=== PATIENT | female | born 1940 | race Caucasian/White ===

== ENCOUNTER 2016-08-18 20:00 | Outpatient (CLI) | payer MEDICARE ==
[~2016-08-18 20:00] MED LIST: ACHD5005 PO; ALPR0.5T72 PO; ATEN50TA PO; CYCL10TA9 PO; OMEP20CA12 PO; PRD20T PO; TRIAM/HCTZ PO
== END 2016-08-19 06:45 | disposition home or self-care (01) ==
LOC: SLEEP 20:00
PROVIDERS: ATTEND Internal Medicine Critical Care Medicine
DX: G47.33 Obstructive sleep apnea (adult) (pediatric) (principal)
CPT/HCPCS: 95810

== ENCOUNTER 2016-09-19 09:20 | Outpatient (CLI) | payer MEDICARE ==
[~2016-09-19] VITALS: Ht 160 cm; Wt 104.3 kg
[2016-09-19] MEDS ORDERED: BUPIVACAINE 0.25% 30 ML (SENSORCAINE) VIAL ONE (09:28)
[2016-09-19] MEDS ORDERED: TRIAMCINOLONE ACET (KENALOG-40) 40 MG/ML 1 ML VIAL ONE (09:28)
[2016-09-19 09:35] VITALS: BP 147/69
[2016-09-19 10:13] VITALS: BP 150/107
--- NOTE | 2016-09-19 14:15 | Pain Medicine-Procedure ---
Procedure Pre-Op/Post-Op Diagnosis Diagnosis: disc disorder with radiculopathy, lumbar Indications for Operation Low back pain Attending Surgeon Radha Procedure Date of Service: Sep 19, 2016 Procedure: Lumbar Epidural Steroid Injection at the L4-L5 level under Fluoroscopic Guidance Procedure: Patient was identified in the holding area. After risks, benefits, and alternatives were discussed with the patient, informed consent was obtained. Patient was brought to the fluoroscopy suite and placed prone on the procedure room table. A time out was performed. Vital signs were monitored throughout the procedure. The patients low back was prepped and draped in the usual sterile fashion. The patients skin was anesthetized using 2% Lidocaine. A Tuohy needle was inserted and advanced to the L4-L5 epidural space under fluoroscopic guidance using the loss of resistance technique and intermittent projection of fluoroscopy. There was no paresthesia with needle placement. The needle position was confirmed in both the AP and lateral view. After negative aspiration 2ml of contrast was injected under live fluoroscopy which showed good spread of the contrast in the epidural space at the appropriate level, there was no intravascular or subarachnoid spread. Again, after negative aspiration for heme or CSF, 2 ml of 0.25% Bupivicaine, 2ml of preservative free normal saline, and 80mg of Kenalog was injected. The needle was removed and a sterile bandage was placed and the patient was transferred to the recovery area in stable condition. After a brief period of observation, patient was discharged to home with no new neurological deficits and no apparent complications. Complications None ROXANNE MCNAMARA MD Sep 19, 2016 2:15 pm
== END 2016-09-19 10:14 | disposition home or self-care (01) ==
LOC: CARD 09:20
PROVIDERS: ATTEND Pain Medicine Pain Medicine
DX: M51.16 Intervertebral disc disorders with radiculopathy, lumbar region (principal); M53.3 Sacrococcygeal disorders, not elsewhere classified; Z79.899 Other long term (current) drug therapy
CPT/HCPCS: 62323

== ENCOUNTER 2016-11-27 10:00 | Outpatient (RCR) | payer MEDICARE | END 2016-11-30 | disposition home or self-care (01) | LOC: PULM 10:00 | PROVIDERS: ATTEND Nurse Practitioner Family | DX: J98.4 Other disorders of lung (principal); R06.02 Shortness of breath; G47.34 Idiopathic sleep related nonobstructive alveolar hypoventilation; R53.83 Other fatigue | CPT/HCPCS: 99211 ==

== ENCOUNTER 2016-12-22 12:28 | Outpatient (CLI) | payer MEDICARE ==
[~2016-12-22] VITALS: Ht 162.6 cm; Wt 103.0 kg
[2016-12-22] MEDS ORDERED: TRIAMCINOLONE ACET (KENALOG-40) 40 MG/ML 1 ML VIAL ONE (12:52)
[2016-12-22] MEDS ORDERED: BUPIVACAINE 0.25% 30 ML (SENSORCAINE) VIAL ONE (12:52)
[2016-12-22 13:03] VITALS: BP 149/97
[2016-12-22 13:31] VITALS: BP 121/71
--- NOTE | 2016-12-22 16:03 | Pain Medicine-Procedure ---
Procedure Pre-Op/Post-Op Diagnosis Diagnosis: disc disorder with radiculopathy, lumbar Indications for Operation Low back pain Attending Surgeon Radha Procedure Date of Service: December 22, 2016 Procedure: Lumbar Epidural Steroid Injection at the L4-L5 level under Fluoroscopic Guidance Procedure: Patient was identified in the holding area. After risks, benefits, and alternatives were discussed with the patient, informed consent was obtained. Patient was brought to the fluoroscopy suite and placed prone on the procedure room table. A time out was performed. Vital signs were monitored throughout the procedure. The patients low back was prepped and draped in the usual sterile fashion. The patients skin was anesthetized using 2% Lidocaine. A Tuohy needle was inserted and advanced to the L4-L5 epidural space under fluoroscopic guidance using the loss of resistance technique and intermittent projection of fluoroscopy. There was no paresthesia with needle placement. The needle position was confirmed in both the AP and lateral view. After negative aspiration 2ml of contrast was injected under live fluoroscopy which showed good spread of the contrast in the epidural space at the appropriate level, there was no intravascular or subarachnoid spread. Again, after negative aspiration for heme or CSF, 2 ml of 0.25% Bupivicaine, 2ml of preservative free normal saline, and 80mg of Kenalog was injected. The needle was removed and a sterile bandage was placed and the patient was transferred to the recovery area in stable condition. After a brief period of observation, patient was discharged to home with no new neurological deficits and no apparent complications. Complications None ROXANNE MCNAMARA MD December 22, 2016 4:03 pm
== END 2016-12-22 13:33 ==
LOC: CARD 12:28
PROVIDERS: ATTEND Pain Medicine Pain Medicine
DX: M51.16 Intervertebral disc disorders with radiculopathy, lumbar region (principal)
CPT/HCPCS: 62323

== ENCOUNTER 2017-02-19 10:00 | Outpatient (RCR) | payer MEDICARE | END 2017-03-02 | disposition home or self-care (01) | LOC: PULM 10:00 | PROVIDERS: ATTEND Nurse Practitioner Family | DX: J98.4 Other disorders of lung (principal); R06.02 Shortness of breath; G47.34 Idiopathic sleep related nonobstructive alveolar hypoventilation; R53.83 Other fatigue ==

== ENCOUNTER → 2017-07-08 | Outpatient (CLI) | payer MEDICARE ==
--- NOTE | 2017-07-08 13:36 | Diagnostic Imaging Report ---
PROCEDURE: US left lower extremity venous. TECHNIQUE: Multiple Real-time grayscale images were obtained over the left lower extremity in various projections. Additional duplex Doppler and color Doppler images were also obtained. INDICATION: Left lower extremity edema. FINDINGS: The left common femoral vein demonstrates compressibility and color flow. There is flow seen in the profunda femoris. The superficial femoral vein demonstrates no flow or compressibility. There is a small vein demonstrating flow running adjacent to the superficial femoral vein which could be a collateral or a duplicated vein. The popliteal vein is patent. The visualized portions of the peroneal and posterior tibial veins appear patent. IMPRESSION: There is age indeterminate occlusive thrombosis in the left superficial femoral vein. The findings were called to the nurse practitioner taking care of the patient, Serina Link, by the eeg technologist who performed the exam at 1:30 PM. Dictated by: Dictated on workstation # [id number]
--- NOTE | 2017-07-08 13:44 | Diagnostic Imaging Report ---
Left lower extremity arterial duplex ultrasound. INDICATION: Left lower extremity intermittent swelling. FINDINGS: Grayscale images demonstrate no significant plaque in the femoropopliteal segments. Biphasic waveforms are demonstrated throughout. The velocities and color Doppler in the femoropopliteal segments, the posterior tibial and dorsalis pedis arteries are all within normal limits. IMPRESSION: Biphasic waveform is seen in the left lower extremity arteries with no ultrasound evidence of focal high-grade stenosis. Dictated by: Dictated on workstation # [id number]
== END ==
LOC: RAD 12:22
PROVIDERS: ATTEND Nurse Practitioner Family
DX: I82.412 Acute embolism and thrombosis of left femoral vein (principal); Z86.718 Personal history of other venous thrombosis and embolism
CPT/HCPCS: 93926

== ENCOUNTER → 2017-07-23 | Outpatient (CLI) | payer MEDICARE ==
--- NOTE | 2017-07-24 10:15 | Diagnostic Imaging Report ---
Bilateral screening mammogram 2D views with tomosynthesis The current study was also evaluated with a Computer Aided Detection (CAD) system. Indication: Screening. No current complaints stated on the questionnaire. COMPARISON: 07/21/2016. Findings: The breasts are composed of scattered from densities. Scattered benign-appearing calcifications are seen. Allowing for technique and positional differences, no suspicious change is seen. IMPRESSION: No significant change. ACR BI-RADS Category 2: Benign findings. Result letter will be mailed to the patient. Note: At least 10% of breast cancer is not imaged by mammography. Dictated by: Dictated on workstation # [id number]
== END ==
LOC: RAD 12:51
PROVIDERS: ATTEND Nurse Practitioner Family
DX: Z12.31 Encounter for screening mammogram for malignant neoplasm of breast (principal)
CPT/HCPCS: 77067

== ENCOUNTER 2017-09-07 13:21 | Outpatient (RCR) | payer MEDICARE ==
[2017-09-07 15:39] LABS: BASOPHILS % (AUTO) 0 % (0-10); EOSINOPHILS # (AUTO) 0.1 10^3/uL (0.0-0.3); EOSINOPHILS % (AUTO) 1 % (0-10); HEMATOCRIT 37 % (35-52); HEMOGLOBIN 13.1 G/DL (11.5-16.0); LYMPHOCYTES # (AUTO) 1.3 X 10^3 (1.0-4.0); LYMPHOCYTES % (AUTO) 21 % (12-44); MEAN CORPUSCULAR HEMOGLOBIN 32 PG (25-34); MEAN CORPUSCULAR HGB CONC 36 G/DL (32-36); MEAN CORPUSCULAR VOLUME 91 FL (80-99); MEAN PLATELET VOLUME 10.9 FL (7.4-10.4); MONOCYTES # (AUTO) 0.5 X 10^3 (0.0-1.0); MONOCYTES % (AUTO) 9 % (0-12); NEUTROPHILS # (AUTO) 4.1 X 10^3 (1.8-7.8); NEUTROPHILS % (AUTO) 69 % (42-75); PLATELET COUNT 205 10^3/uL (130-400); RED BLOOD COUNT 4.06 10^6/uL (4.35-5.85); RED CELL DISTRIBUTION WIDTH 13.3 % (10.0-14.5); WHITE BLOOD COUNT 5.9 10^3/uL (4.3-11.0)
[2017-09-07 16:04] LABS: ALBUMIN 3.7 GM/DL (3.2-4.5); BILIRUBIN,TOTAL 0.7 MG/DL (0.1-1.0); CALCIUM 9.7 MG/DL (8.5-10.1); CREATININE SERUM 1.04 MG/DL (0.60-1.30); POTASSIUM 3.3 MMOL/L (3.6-5.0); TOTAL PROTEIN 7.9 GM/DL (6.4-8.2)
== END 2017-12-06 | disposition home or self-care (01) ==
LOC: ONC 13:21
PROVIDERS: ATTEND Internal Medicine Hematology & Oncology
DX: I82.412 Acute embolism and thrombosis of left femoral vein (principal); Z86.718 Personal history of other venous thrombosis and embolism
CPT/HCPCS: 36415; 80053; 81240; 81241; 85025; 99214

== ENCOUNTER → 2017-10-12 | Outpatient (CLI) | payer MEDICARE ==
--- NOTE | 2017-10-12 17:21 | Diagnostic Imaging Report ---
INDICATION: Right-sided chest pain and cough. PA and lateral chest obtained at 4:46 p.m. FINDINGS: Heart is normal in size. Aorta is tortuous. There is mild central vascular prominence which appears stable compared with 02/19/15. There is no acute consolidation or pneumothorax or pleural fluid. IMPRESSION: Stable appearance compared with 02/19/15 with no acute abnormality. Dictated by: Dictated on workstation # [id number]
== END ==
LOC: RAD 16:04
PROVIDERS: ATTEND Family Medicine
DX: R05 Cough (principal); R07.89 Other chest pain; M54.9 Dorsalgia, unspecified; M25.519 Pain in unspecified shoulder
CPT/HCPCS: 71046

== ENCOUNTER 2017-12-09 10:46 | Outpatient (RCR) | payer MEDICARE | END 2018-03-09 | disposition home or self-care (01) | LOC: ONC 10:46 | PROVIDERS: ATTEND Internal Medicine Hematology & Oncology | DX: I82.412 Acute embolism and thrombosis of left femoral vein (principal); Z86.718 Personal history of other venous thrombosis and embolism | CPT/HCPCS: 99213 ==

== ENCOUNTER 2018-04-14 09:21 | Outpatient (RCR) | payer MEDICARE ==
[2018-03-31 11:05] LABS: BASOPHILS % (AUTO) 1 % (0-10); EOSINOPHILS # (AUTO) 0.1 10^3/uL (0.0-0.3); EOSINOPHILS % (AUTO) 2 % (0-10); HEMATOCRIT 38 % (35-52); HEMOGLOBIN 13.4 G/DL (11.5-16.0); LYMPHOCYTES # (AUTO) 1.1 X 10^3 (1.0-4.0); LYMPHOCYTES % (AUTO) 25 % (12-44); MEAN CORPUSCULAR HEMOGLOBIN 32 PG (25-34); MEAN CORPUSCULAR HGB CONC 35 G/DL (32-36); MEAN CORPUSCULAR VOLUME 91 FL (80-99); MEAN PLATELET VOLUME 11.5 FL (7.4-10.4); MONOCYTES # (AUTO) 0.3 X 10^3 (0.0-1.0); MONOCYTES % (AUTO) 7 % (0-12); NEUTROPHILS # (AUTO) 2.8 X 10^3 (1.8-7.8); NEUTROPHILS % (AUTO) 66 % (42-75); PLATELET COUNT 184 10^3/uL (130-400); RED BLOOD COUNT 4.23 10^6/uL (4.35-5.85); RED CELL DISTRIBUTION WIDTH 13.8 % (10.0-14.5); WHITE BLOOD COUNT 4.3 10^3/uL (4.3-11.0)
[2018-03-31 11:36] LABS: ALBUMIN 3.7 GM/DL (3.2-4.5); BILIRUBIN,TOTAL 0.9 MG/DL (0.1-1.0); CALCIUM 9.8 MG/DL (8.5-10.1); CREATININE SERUM 0.98 MG/DL (0.60-1.30); POTASSIUM 3.4 MMOL/L (3.6-5.0); TOTAL PROTEIN 7.8 GM/DL (6.4-8.2)
== END 2018-06-29 | disposition home or self-care (01) ==
LOC: ONC 09:21
PROVIDERS: ATTEND Internal Medicine Hematology & Oncology
DX: I82.412 Acute embolism and thrombosis of left femoral vein (principal); Z86.718 Personal history of other venous thrombosis and embolism
CPT/HCPCS: 36415; 80053; 85025; 85300; 85303; 85306; 85610; 85613; 85705; 85730; 86146; 86147; 99213

== ENCOUNTER → 2018-06-16 | Outpatient (CLI) | payer MEDICARE ==
[~2018-06-16] MED LIST changes: +RT-ALBUTEROL SULF 2.5 MG/3 ML PRE-MIX VIAL INH ONE
== END ==
LOC: RT 09:42
PROVIDERS: ATTEND Nurse Practitioner Family
DX: R09.02 Hypoxemia (principal); R06.02 Shortness of breath; J98.4 Other disorders of lung; G47.33 Obstructive sleep apnea (adult) (pediatric)
CPT/HCPCS: 94060; 94640; 94726; 94729

== ENCOUNTER → 2018-06-16 | Outpatient (CLI) | payer MEDICARE ==
[~2018-06-16] MED LIST changes: -RT-ALBUTEROL SULF 2.5 MG/3 ML PRE-MIX VIAL INH ONE
--- NOTE | 2018-06-16 13:29 | Diagnostic Imaging Report ---
INDICATION: Hypoxemia. PA and lateral chest. Heart size and pulmonary vascularity are normal. Lungs are clear. There are no effusions or pneumothoraces. IMPRESSION: Negative chest. Dictated by: Dictated on workstation # [id number]
== END ==
LOC: RAD 09:49
PROVIDERS: ATTEND Nurse Practitioner Family
DX: J98.4 Other disorders of lung (principal); G47.33 Obstructive sleep apnea (adult) (pediatric); G47.34 Idiopathic sleep related nonobstructive alveolar hypoventilation; R09.02 Hypoxemia
CPT/HCPCS: 71046

== ENCOUNTER → 2018-08-04 | Outpatient (CLI) | payer MEDICARE ==
--- NOTE | 2018-08-04 18:29 | Diagnostic Imaging Report ---
INDICATION: Screening. At this time there are no current complaints. EXAMINATION: Bilateral breast digital diagnostic mammogram with CAD. 3D tomographic images were obtained and reviewed. The current study was also evaluated with a Computer Aided Detection (CAD) system. COMPARISON: This study was compared to the prior exams of 07/23/2017, 07/21/2016 and 07/18/2015. FINDINGS: The breasts are predominantly fatty. When compared with the previous study, there does not appear to have been any significant change. There is no primary or secondary sign of malignancy noted. IMPRESSION: There is no evidence for malignancy. ACR BI-RADS Category 1: Negative. Result letter will be mailed to the patient. Note: At least 10% of breast cancer is not imaged by mammography. Dictated by: Dictated on workstation # [id number]
== END ==
LOC: RAD 10:07
PROVIDERS: ATTEND Nurse Practitioner Family
DX: Z12.31 Encounter for screening mammogram for malignant neoplasm of breast (principal)
CPT/HCPCS: 77067

== ENCOUNTER → 2019-01-14 | Outpatient (CLI) | payer MEDICARE ==
--- NOTE | 2019-01-14 15:49 | Diagnostic Imaging Report ---
INDICATION: Left-sided rib and back pain. COMPARISON: None. FINDINGS: Three views of the left ribs were obtained. There is no fracture, dislocation, or other acute bony abnormality identified. Visualized portions of the left lung are clear. The surrounding soft tissues appear unremarkable. No radiopaque foreign bodies are seen. IMPRESSION: No healing or displaced left-sided rib fractures. Dictated by: Dictated on workstation # [id number]
== END ==
LOC: RAD 13:32
PROVIDERS: ATTEND Nurse Practitioner Family
DX: R07.81 Pleurodynia (principal); M54.9 Dorsalgia, unspecified
CPT/HCPCS: 71100

== ENCOUNTER → 2019-06-15 | Outpatient (CLI) | payer MEDICARE ==
--- NOTE | 2019-06-15 16:07 | Diagnostic Imaging Report ---
PROCEDURE: MR imaging of the cervical spine without contrast. TECHNIQUE: Multiplanar, multisequence MR imaging of the cervical spine was performed without contrast. INDICATION: Neck pain with bilateral hand numbness. COMPARISON: No prior studies are available for comparison. FINDINGS: Curvature and alignment of the cervical spine is normal. Vertebral body marrow signal is normal. No geographic marrow lesion is seen. There is some generalized desiccation of the cervical discs, but no significant loss of height is identified. The cervical spinal cord demonstrates normal homogeneous signal intensity and normal morphology. C2-C3: Central canal and neural foramina are widely patent. C3-C4: Central canal and neural foramina are widely patent. There is a very small midline disc bulge present. C4-C5: Minimal endplate osteophytes are present, but no significant central canal or neural foraminal stenosis is identified. C5-C6: No significant central canal or neural foraminal stenosis is identified. C6-C7: No central canal or neural foraminal stenosis is identified. C7-T1: No central canal or neural foraminal stenosis is identified. IMPRESSION: Mild cervical spondylosis. No central canal or neural foraminal stenosis is detected. Dictated by: Dictated on workstation # [id number]
== END ==
LOC: RAD 14:09
PROVIDERS: ATTEND Family Medicine
DX: M47.812 Spondylosis without myelopathy or radiculopathy, cervical region (principal); R20.2 Paresthesia of skin
CPT/HCPCS: 72141

== ENCOUNTER → 2019-07-05 | Outpatient (CLI) | payer MEDICARE ==
[2019-07-05 10:01] LABS: ABSOLUTE RETIC # 40 10e9/L (24-90); BASOPHILS % (AUTO) 0 % (0-10); EOSINOPHILS # (AUTO) 0.1 10^3/uL (0.0-0.3); EOSINOPHILS % (AUTO) 2 % (0-10); HEMATOCRIT 34 % (35-52); HEMOGLOBIN 11.6 G/DL (11.5-16.0); LYMPHOCYTES # (AUTO) 0.6 X 10^3 (1.0-4.0); LYMPHOCYTES % (AUTO) 15 % (12-44); MEAN CORPUSCULAR HEMOGLOBIN 31 PG (25-34); MEAN CORPUSCULAR HGB CONC 35 G/DL (32-36); MEAN CORPUSCULAR VOLUME 91 FL (80-99); MEAN PLATELET VOLUME 10.3 FL (7.4-10.4); MONOCYTES # (AUTO) 0.3 X 10^3 (0.0-1.0); MONOCYTES % (AUTO) 9 % (0-12); NEUTROPHILS # (AUTO) 2.8 X 10^3 (1.8-7.8); NEUTROPHILS % (AUTO) 73 % (42-75); PLATELET COUNT 146 10^3/uL (130-400); RED CELL DISTRIBUTION WIDTH 13.4 % (10.0-14.5); RETICULOCYTE % 1.08 % (0.50-2.40); WHITE BLOOD COUNT 3.8 10^3/uL (4.3-11.0)
[2019-07-05 10:23] LABS: BUN/CREATININE RATIO 17; CARBON DIOXIDE 24 MMOL/L (21-32); CHLORIDE 99 MMOL/L (98-107); GFR ESTIMATED > 60; GLUCOSE 97 MG/DL (70-105); SODIUM 131 MMOL/L (135-145)
[2019-07-05 10:43] LABS: ANISOCYTOSIS SLIGHT; BAND NEUTROPHILS 2 %; BASOPHILS % (MANUAL) 1 %; EOSINOPHILS % (MANUAL) 3 %; LYMPHOCYTES % (MANUAL) 15 %; MONOCYTES % (MANUAL) 7 %; NEUTROPHILS % (MANUAL) 72 %
== END ==
LOC: LAB 09:41
PROVIDERS: ATTEND Family Medicine
DX: D64.9 Anemia, unspecified (principal); D72.819 Decreased white blood cell count, unspecified
CPT/HCPCS: 36415; 80048; 85007; 85027; 85045

== ENCOUNTER → 2019-08-09 | Outpatient (CLI) | payer MEDICARE ==
--- NOTE | 2019-08-09 13:42 | Diagnostic Imaging Report ---
INDICATION: Routine screening. COMPARISON: 08/04/2018 and 07/23/2017. TECHNIQUE: 2D and 3D bilateral screening mammography was performed with CAD. FINDINGS: Scattered fibroglandular densities are identified bilaterally. Benign parenchymal and vascular calcifications are identified bilaterally. No spiculated mass or malignant appearing microcalcifications are seen. The axillae are unremarkable. IMPRESSION: No mammographic features suspicious for malignancy are identified. ACR BI-RADS Category 2: Benign findings. Result letter will be mailed to the patient. Note: At least 10% of breast cancer is not imaged by mammography. Dictated by: Dictated on workstation # [id number]
== END ==
LOC: RAD 11:03
PROVIDERS: ATTEND Family Medicine
DX: Z12.31 Encounter for screening mammogram for malignant neoplasm of breast (principal)
CPT/HCPCS: 77067

== ENCOUNTER 2019-10-17 09:34 | Inpatient (IN) | payer MEDICARE ==
[~2019-10-17] VITALS: Ht 162.5 cm; Wt 94.6 kg
[2019-10-17] MEDS ORDERED: ACETAMINOPHEN 500 MG TAB (TYLENOL) PO PRN (09:45)
[2019-10-17] MEDS ORDERED: LACTULOSE SYRUP 10GM/15ML (ENULOSE) 30ML UDC PO PRN (09:45)
[2019-10-17] MEDS ORDERED: FLEET ENEMA ADULT 1 EA BTL PR PRN (09:45)
[2019-10-17] MEDS ORDERED: diphenhydrAMINE 25 MG TAB (BENADRYL) PO PRN (09:45)
[2019-10-17] MEDS ORDERED: ONDANSETRON 4 MG (ZOFRAN) ORAL DISSOLVE TAB PO PRN (09:45)
[2019-10-17] MEDS ORDERED: HYDROcodone/APAP 5 MG/325 MG (LORTAB) TAB PO PRN (09:45)
[2019-10-17] MEDS ORDERED: LOPERAMIDE 2 MG (IMODIUM) TABLET PO PRN (09:45)
[2019-10-17] MEDS ORDERED: guaiFENesin/CODEINE (ROBITUSSIN AC) 10ML UDC PO PRN (09:45)
[2019-10-17] MEDS ORDERED: BISACODYL 10 MG SUPP (DULCOLAX) PR PRN (09:45)
[2019-10-17] MEDS ORDERED: ALPRAZolam 0.25 MG (XANAX) TAB PO PRN (09:45)
[2019-10-17] MEDS ORDERED: IBUPROFEN TABLET 200 MG TAB PO PRN (09:45)
[2019-10-17] MEDS ORDERED: DOCUSATE SODIUM 100 MG (COLACE) CAP PO PRN (09:45)
[2019-10-17] MEDS ORDERED: CALCIUM CARBONATE 500 MG (TUMS) TAB.CHEW PO PRN (09:45)
[2019-10-17 10:35] VITALS: BP 114/66
--- NOTE | 2019-10-17 10:52 | PM&R Post Admission Assessment ---
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 She reports falling out of bed a few times these past 2 weeks. Patient does wear 3L/min of O2 at night and during exertion. Patient denies any pain. I reviewed h er home meds and will start all of them. She has a very flat affect so will try to increase mobility and motivation during her stay here in order to return home to live independently. Past Jaybewm-Imqwkm-Miyqec Hx Past Med/Social Hx: Reviewed Nursing Past Med/Soc Hx, Reviewed and Corrections made Patient Social History Marrital Status: single Employed/Student: retired Alcohol Use: Denies Use Smoking Status: Never a Smoker Recent Foreign Travel: No Contact w/other who traveled: No Recent Infectious Disease Expo: No Immunizations Up To Date Date of Pneumonia Vaccine: Apr 03, 2011 Date of Influenza Vaccine: Jun 18, 2014 Past Medical History Respiratory: Emphysema restrictive lung disease Cardiac: High Cholesterol, Hypertension Reproductive: No Sexually Transmitted Disease: No HIV/AIDS: No Genitourinary: Bladder Infection Gastrointestinal: Gastroesophageal Reflux, Hiatal Hernia Musculoskeletal: Arthritis Endocrine: Hypothyroidsim Loss of Vision: Denies Hearing Impairment: Hard of Hearing Psychosocial: Sleep Difficulties Adverse Reaction to Blood Galan: No PM&R Allergy/Meds/Data Review Allergies Coded Allergies: No Known Drug Allergies (Unverified , 12/22/12) Home Medications Scheduled Acetaminophen (Tylenol Extra Strength), 1,000 MG PO BID, (Reported) Atenolol (Atenolol), 25 MG PO DAILY, (Reported) Cholecalciferol (Vitamin D3) (Vitamin D3), 25 MCG PO DAILY, (Reported) Diclofenac Sodium (Diclofenac Sodium), 2 GM TD QID, (Reported) Duloxetine HCl (Duloxetine HCl), 20 MG PO DAILY, (Reported) Levothyroxine Sodium (Levothyroxine Sodium), 50 MCG PO DAILY, (Reported) Multivitamin (Multivitamins), 1 EACH PO DAILY, (Reported) Omeprazole (Omeprazole), 20 MG PO DAILY, (Reported) Triamterene/Hydrochlorothiazid (Triamterene-Hctz 37.5-25 mg Tb), 1 EA PO DAILY, (Reported) Scheduled PRN Alprazolam (Alprazolam), 0.5 MG PO HS PRN for SLEEP, (Reported) Discontinued Medications Alprazolam (Alprazolam), 1 EACH PO HS, (Reported) Discontinued Reason: Duplicate Order Atenolol (Tenormin 50 Mg), 1 EACH PO DAILY, (Reported) Discontinued Reason: No Longer Taking Cyclobenzaprine Hcl (Cyclobenzaprine Hcl), 1 EACH PO Q6H, (Reported) Discontinued Reason: Duplicate Order Omeprazole (Omeprazole), 1 CAP PO DAILY, (Reported) Discontinued Reason: No Longer Taking [Triam/Hctz], 37.5 MG PO DAILY, (Reported) Discontinued Reason: No Longer Taking Current Medications Current Medications Reviewed Review of Systems Constitutional: see HPI, malaise, weakness EENTM: no symptoms reported Respiratory: dyspnea on exertion Cardiovascular: no symptoms reported Gastrointestinal: no symptoms reported Genitourinary: no symptoms reported Musculoskeletal: back pain, joint pain Skin: no symptoms reported Psychiatric/Neurological: Anxiety, Depressed All Other Systems Reviewed Negative Unless Noted: Yes Physical Exam Physical Exam Vital Signs Vital Signs - First Documented 10/17/19 10:35 Temp 36.1 Pulse 70 Resp 18 B/P (MAP) 114/66 Pulse Ox 97 O2 Delivery Room Air Capillary Refill : Height, Weight, BMI Height: 5'4.00" Weight: 227lbs. 0.0oz. [id number]; 33.85 BMI Method:Stated General Appearance: No Apparent Distress, WD/WN, Chronically ill Eyes: Bilateral Eye Normal Inspection, Bilateral Eye PERRL HEENT: PERRL/EOMI, Normal ENT Inspection, Pharynx Normal Neck: Full Range of Motion, Normal Inspection, Non Tender, Supple, Carotid Bruit Respiratory: Chest Non Tender, Lungs Clear, Normal Breath Sounds, No Accessory Muscle Use, No Respiratory Distress Cardiovascular: Regular Rate, Rhythm, No Edema, No Gallop, No JVD, No Murmur, Normal Peripheral Pulses Gastrointestinal: Normal Bowel Sounds, No Organomegaly, No Pulsatile Mass, Non Tender, Soft Back: Normal Inspection, No CVA Tenderness, No Vertebral Tenderness Extremity: Normal Capillary Refill, Normal Inspection, Normal Range of Motion, Non Tender, No Calf Tenderness, No Pedal Edema Neurologic/Psychiatric: Alert, Oriented x3, No Motor/Sensory Deficits, 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 II- XII Norm as Tested, Abnormal Gait, Depressed Affect, Motor Weakness (generalized) Skin: Normal Color, Warm/Dry Lymphatic: No Adenopathy PM&R Medical Assessment & Plan REHAB/MEDICAL ASSESSMENT AND PLAN: REHAB IMPAIRMENT GROUP: Debility with cervical spine stenosis ETIOLOGIC DIAGNOSIS: Debility with cervical spine stenosis The comorbidities that impact the patients function and/or functional outcome by: lung disease O2 dependent, falls, lives alone, flat affect REHAB PLAN: The patient is being admitted to our comprehensive inpatient rehabilitation facility and can tolerate the intensity of service consisting of at least: 180 minutes of therapy a day, 5 out of 7 days a week Rehab treatment will consist of: PT OT will focus on building stamina and strength and fall risk prevention The patient/family has a good understanding of our discharge process and will benefit from an interdisciplinary inpatient rehabilitation program. The patient has potential to make improvement and is in need of at least two of the following multidisciplinary therapies including but not limited to physical, occupational, speech, and prosthetics and orthotics. Additionally the patient will need services from respiratory, nutritional services, wound care, p sychology, etc. (Customize this to each patient). Given the patients complex condition and risk of further medical complications, rehabilitation services cannot be safely or effectively provided at a lower level of care such as a long term facility. BARRIERS TO DISCHARGE: Lives alone ESTIMATED LOS: 7 days DISPOSITION: Home RELEVANT CHANGES SINCE PREADMISSION SCREENING: I have compared the patients medical and functional status at the time of the preadmission screening and there are: no changes PROGNOSIS: Good REHABILITATION GOALS: 1. PT OT will focus on building stamina and strength and fall risk prevention All the above goals were reviewed with the patient and he/she is in agreement. By signing this document, I acknowledge that I have personally performed a full physical examination on this patient within 24 hours of admission to this inpatient rehabilitation facility and have determined the patient to be able to tolerate the above course of treatment at an intensive level for a reasonable period of time. I will be completing a detailed individualized Plan of Care for this patient by day #4 of the patients stay based upon the Preadmission Screen, the Post-Admission Evaluation, and the therapy evaluations. Admission Dx/Comorbidities: (1) Debility ICD Codes: R53.81 - Other malaise (2) Fall ICD Codes: W19.XXXA - Unspecified fall, initial encounter (3) Restrictive lung disease ICD Codes: J98.4 - Other disorders of lung (4) Oxygen dependent ICD Codes: Z99.81 - Dependence on supplemental oxygen (5) Hypertension ICD Codes: I10 - Essential (primary) hypertension (6) Hypothyroidism ICD Codes: E03.9 - Hypothyroidism, unspecified (7) GERD (gastroesophageal reflux disease) ICD Codes: K21.9 - Gastro-esophageal reflux disease without esophagitis Assessment/Plan Assessment and Plan Assess & Plan/Chief Complaint Assessment: Debility Weakness HTN HLP Hypothyroidism Restrictive lung disease Oxygen dependency Depression Plan: IRF protocol Home meds Monitor for pain and falls [facility]ISE [facility] DO Oct 17, 2019 10:52
--- NOTE | 2019-10-17 11:36 | Occupational Therapy Eval ---
OT Evaluation-General/PLF Medical Diagnosis Admission Date Oct 17, 2019 at 10:09 Medical Diagnosis: Debility Onset Date: Oct 17, 2019 Therapy Diagnosis Therapy Diagnosis: Decreased ADL status Height/Weight Height (Feet): 5 Height (Inches): 4.00 Weight (Pounds): 227 Weight (Ounces): 0.0 Precautions Precautions/Isolations: Standard Precautions Weight Bear Status Weight Bearing Restriction: Weight Bearing/Tolerated Referral Physician: Val Palacio DO Referral Reason: Activity Tolerance, Self Care, Evaluation/Treatment, Strengthening/ROM Medical History Pertinent Medical History: Arthritis Current History Pt underwent CTS release ~6 weeks prior to admission. Pt's family states since R CTS surgery, pt has become increasingly weak, decreased mood and motivation, and utilizes BUE for stability for walking now (prior use quad cane). Pt admits to ARU with debility Reviewed History: Yes Social History Home: Single Level Current Living Status: Children (son) Entry Into Home: Ramp Steps Into Home: 0 Pt goes to daughter's home somewhat frequently: 5 stairs with one handrail ADL-Prior Level of Function SCALE: Activities may be completed with or without assistive devices. 7-Livcazlyro-mgrtipt completes the activity by him/herself with no assistance from a helper. 5-Set-up or Clean-up Assistance-helper sets up or cleans up; patient completes activity. Lerona assists only prior to or following the activity. 4-Supervision or Touching Assistance-helper provides verbal cues and/or touching/steadying and/or contact guard assistance as patient completes activity. Assistance may be provided throughout the activity or intermittently. 3-Partial/Moderate Assistance-helper does LESS THAN HALF the effort. Lerona lifts, holds or supports trunk or limbs, but provides less than half the effort. 2-Substantial/Maximal Assistance-helper does MORE THAN HALF the effort. Lerona lifts or holds trunk or limbs and provides more than half the effort. 4-Ynxqyowen-nchywz does ALL the effort. Patient does none of the effort to complete the activity. Or, the assistance of 2 or more helpers is required for the patient to complete the activity. If activity was not attempted, code reason: 7-Patient Refused. 9-Not Applicable-not attempted and the patient did not perform the activity before the current illness, exacerbation or injury. 10-Not Attempted due to Environmental Limitations-(lack of equipment, weather restraints, etc.). 88-Not Attempted due to Medical Conditions or Safety Concerns. ADL PLOF Comments Pt states she is able to complete all ADLs with IND, though daughter in law states pt requires assist at times for UB dressing/ safety within the home/ has been weaker. Self Care: Needed Some Help Functional Cognition: Independent DME/Equipment: Bath Chair, Shower, Tub/Shower DME/Equipment Comments shower with built in chair, no grab bars (will be placed by daughter as well as gbs near toilet), sit to stand recliner. 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 Pt assisted from 1st floor to ARU with w/c with PT/OT, pt agreeable to OT eval/ treat. Daughter and daughter in law accompany pt. Pt's vitals assessed by assistant director of nursing, pt denies pain in neck and L hand. Mental Status/Objective Patient Orientation: Person, Place, Situation Current Glasses/Contacts: Yes Hearing Aids: No Dentures/Partials: Yes Hand Dominance: Right Upper Extremity ROM WFL BUE Upper Extremity Coordination WFL BUE (though states L hand is "asleep") Upper Extremity Sensation bilateral hands: R hand CTS surgery 6 weeks prior (states some paresthesias/ weakness); L hand CTS per pt (states "numbness/ asleep") Upper Extremity Strength Decreased bilaterally (4-/5) ADL-Treatment Eating (QC): 6 Oral Hygiene (QC): 7 Shower/Bathe Self (QC): 7 Upper Body Dressing (QC): 7 Lower Body Dressing (QC): 7 On/Off Footwear (QC): 7 Toileting Hygiene (QC): 4 (SBA garrett hygiene) Other Treatments PT eval: [id number] OT eval: 8715-8264 (10) OT/ PT cotreat: 5311-5272 (45) Pt educated on OT role, ARU standards/ expectations, and visitor limitations. Pt sit to stand with use of 2WW for stabilization. Completes shoe doff/ donning with SBA (slip on). Pt bed mob with SBA. Pt completes urination/ bottom check with nursing with SBA for toilet transfer, SBA toilet hygiene. Pt's daughter states they will place gb by toilet and in shower at home. Pt prefers bathing, but has been utilizing shower chair in walk in shower. Pt and daughters express pt's debility since CTS release. Pt's daughters express decreased mood of pt; pt lives with son and per family son is managing depressed moods as potato chip processing supervisor caregiver. Pt's family and OT discuss rotation of caregivers, family states had been trying to give pt's son a break and will continue to work towards. Pt completes ambulation tasks with CGA. Pt returns to recliner, 02 checked at 99%. Pt completes standing/ balance/ UE exercises at 2WW level. Pt completes bicep curls, internal shoulder rotation, and shoulder flexion of R in stance and L in sit. Pt maintains over 98% 02 during this time. Pt left with PT for continuation of ambulation tasks. All needs met, call light in reach. OT individual tx: 3591-9339 (45): Pt seen in recliner chair, agrees to OT tx session. Pt sit to stand with SBA, ambulates to therapy gym with SBA. Pt completes 13 min arm bike exercise (low resistance, higher time) to increase UE endurance- able to maintain conversation throughout. Pt completes without rest break. Pt completes export clerk strength testing bilaterally: R avg 28.3 lbs; L avg 30.3 lbs. Pt educated on findings. Pt completes export clerk strength exercises with hand sponge, education of export clerk and pinch strengthening. Pt completes toileting in room with SUP- good safety awareness, washes hands and returns to recliner chair with call light in reach, all needs met. Education OT Patient Education: Correct positioning, Exercise program, Home exercise program, Modified ADL techniques, Purpose of tx/functional activities, Rehab process, Safety issues Teaching Recipient: Patient Teaching Methods: Demonstration, Discussion Response to Teaching: Verbalize Understanding, Return Demonstration OT Short Term Goals Short Term Goals Upper body dressin Lower body dressin OT Residential Goals Residential Goals Time Frame: Oct 31, 2019 Eating (QC): 6 Oral Hygiene (QC): 6 Toileting Hygiene (QC): 6 Shower/Bathe Self (QC): 6 Upper Body Dressing (QC): 6 Lower Body Dressing (QC): 6 On/Off Footwear (QC): 6 Additional Goals: 1-Demonstrate ADL Tasks, 2-Verbalize Understanding, 3- ImproveStrength/Danny 1=Demonstrate adherence to instructed precautions during ADL tasks. 2=Patient will verbalize/demonstrate understanding of assistive devices/modifications for ADL. 3=Patient will improve strength/tolerance for activity to enable patient to perform ADL's. OT Education/Plan Problem List/Assessment Assessment: Decreased Activ Tolerance, Decreased UE Strength, Dependent Transfers, Impaired Funct Balance, Impaired I ADL's, Impaired Self-Care Skills Discharge Recommendations Plan/Recommendations: Continue POC Therapy Discharge Recommendati: Intermittent Supervision, Scheduled Assistance, Home & Family, Post Acute OT Treatment Plan/Plan of Care Treatment,Training & Education: Yes Patient would benefit from OT for education, treatment and training to promote independence in ADL's, mobility, safety and/or upper extremity function for ADL's. Plan of Care: ADL Retraining, Caregiver Training, Concurrent Therapy, Func tional Mobility, Group Exercise/Act as Ind, UE Funct Exercise/Act Treatment Duration: Oct 31, 2019 Frequency: At least 5 of 7 days/Wk (IRF) Estimated Hrs Per Day: 1.5 hours per day Agreement: Yes Rehab Potential: Good Time/GCodes Start Time: 10:25 (1320) Stop Time: 11:20 (1405) Total Time Billed (hr/min): 100 (55+ 45) Billed Treatment Time PT eval: [id number] OT eval: 1692-8929 (10) OT/ PT cotreat: 5737-5874 (45) 1, EVM (10), ADL (20), EX 2 (25)= 55 OT individual tx: [id number] (45) 1, ADL (15), EX2(30)= 45 JOSE BEAUCHAMP OTR Oct 17, 2019 11:36
--- NOTE | 2019-10-17 11:39 | Physical Therapy Evaluation ---
PT Evaluation-General Medical Diagnosis Admission Date Oct 17, 2019 at 10:09 Medical Diagnosis: debility Onset Date: Oct 17, 2019 Therapy Diagnosis Therapy Diagnosis: abnormal gait Height/Weight Height (Feet): 5 Height (Inches): 4.00 Weight (Pounds): 227 Weight (Ounces): 0.0 Precautions Precautions/Isolations: Standard Precautions Referral Physician: Pia Reason for Referral: Evaluation/Treatment Medical History Pertinent Medical History: Arthritis, DM, GERD, HTN, Hypothroidism Additional Medical History O2 use at night Right Carpel tunnel release approx 6 months ago; left side pending. Cervical pain. Current History Pt admitted from home with reports of decreased ability to care for herself and increased need for assist at home; decreased functional mobility and impaired safety with gait. Family reports a gradual decline over the past 6 weeks, since hand surgery. Reviewed History: Yes Social History Home: Single Level Current Living Status: Other Family (her son lives with her. ) Entry Into Home: Ramp Pt does have to go up/down steps to enter her daughter's home. Prior Prior Level of Function SCALE: Activities may be completed with or without assistive devices. 9-Cxlmvsxalh-cwxhcky completes the activity by him/herself with no assistance from a helper. 5-Set-up or Clean-up Assistance-helper sets up or cleans up; patient completes activity. Crandall assists only prior to or following the activity. 4-Supervision or Touching Assistance-helper provides verbal cues and/or touching/steadying and/or contact guard assistance as patient completes activity. Assistance may be provided throughout the activity or intermittently. 3-Partial/Moderate Assistance-helper does LESS THAN HALF the effort. Crandall lifts, holds or supports trunk or limbs, but provides less than half the effort. 2-Substantial/Maximal Assistance-helper does MORE THAN HALF the effort. Crandall l ifts or holds trunk or limbs and provides more than half the effort. 1-Akskrxrox-kqyimb does ALL the effort. Patient does none of the effort to complete the activity. Or, the assistance of 2 or more helpers is required for the patient to complete the activity. If activity was not attempted, code reason: 7-Patient Refused. 9-Not Applicable-not attempted and the patient did not perform the activity before the current illness, exacerbation or injury. 10-Not Attempted due to Environmental Limitations-(lack of equipment, weather restraints, etc.). 88-Not Attempted due to Medical Conditions or Safety Concerns. Bed Mobility: 6 Transfers (B,C,W/C): 6 Gait: 6 Stairs: 5 Indoor Mobility (Ambulation): Independent Stairs: Needed Some Help Prior Devices Use: Walker (4WW), Other-see list below (cane) PT Evaluation-Current Subjective Pt agreeable to PT but reports, "I need to leave by Thursday." Denies pain at this time. Pain Numeric Pain Scale: 0-No Pain Location: No Pain Reported Objective Patient Orientation: Person, Place, Time, Situation ROM/Strength ROM Lower Extremities WFL Strength Lower Extremities B LE strength is grossly 4-/5 throughout; decreased functional activity t olerance Integumentary/Posture Integumentary Refer to nursing assessment. Bowel Incontinence: No Bladder Incontinence: Yes Posture slightly rounded shoulders but symmetrical. Neuromuscular (Tone, Coordination, Reflexes) Intact and without functional deficit. Sensory Vision: Functional Hearing: Impaired Hand Dominance: Right Sensation Right Lower Extremit: Intact Sensation Left Lower Extremity: Intact Transfers Roll Left to Right (QC): 4 Sit to Lying (QC): 4 Lying to Sitting/Side of Bed(Q: 4 Sit to Stand (QC): 4 (skilled cues for sequencing. ) Chair/Xwm-vs-Pcduo Xfer(QC): 4 Toilet Transfer: 4 Car Transfer (QC): 4 skilled cues for sequencing and safety. Gait Does the Patient Walk?: Yes Mode of Locomotion: Walk Anticipated Mode of Locomotion: Walk Walk 10 feet (QC): 4 Walk 50 ft with 2 Turns(QC): 3 Walk 150 ft (QC): 3 (min -CGA for safety) Walking 10ft/uneven surface-QC: 3 Gait Assistive Device: FWW Comments/Gait Description Decreased step length and foot clearance B; slow gait. Stairs 1 Step (curb) (QC): 3 4 Steps (QC): 88 12 Steps (QC): 88 Balance Sitting Static: Good Sitting Dynamic: Good Standing Static: Fair Standing Dynamic: Fair Picking up an Object (QC): 88 Treatment Functional transfer and gait training; skilled balance training in static and dynamic situations. Co treat with OT part of treatment; skill of 2 clinicians indicated due to need for cues for use and placement of UE as well as assist for balance and cues for safety in balance challenged situations. As Pt completed toileting activity, OT addressed clothing and pericare as PT addressed the transfer and balaance skills. Assessment/Needs Pt presents with an admission from home with reports of decreased ability to care for herself and manage home mobility. She presents with slight strength and balance deficits as well as impaired functional activity tolerance that impedes bed mobility, transfers and gait as well as increases risk for falls due to these defiits. She will benefit from skilled PT to address mobiltiy to allow her to return to a mod indep level of mobiltiy. Rehab Potential: Good PT Short Term Goals Short Term Goals Time Frame: Oct 22, 2019 Sit to lyin Lying to sitting on side of be: 5 Walk 150 feet: 5 PT Halfway Goals Halfway Goals PT Halfway Goals Time Frame: Oct 31, 2019 Roll Left & Right (QC): 6 Sit to Lying (QC): 6 Lying-Sitting on Side/Bed(QC): 6 Sit to Stand (QC): 6 Chair/Jao-ez-Mldot Xfer(QC): 6 Toilet Transfer (QC): 6 Car Transfer (QC): 6 Does the Patient Walk: Yes Walk 10 feet (QC): 6 Walk 50ft with 2 Turns (QC): 6 Walk 150 ft (QC): 6 Walking 10ft on Uneven Surface: 5 1 Step (curb) (QC): 6 4 Steps (QC): 5 12 Steps (QC): 9 Picking up an Object (QC): 4 Does the Pt use WC or Scooter?: No PT Plan Problem List Problem List: Activity Tolerance, Functional Strength, Safety, Balance, Gait, Transfer, Bed Mobility Treatment/Plan Treatment Plan: Continue Plan of Care Treatment Plan: Bed Mobility, Education, Functional Activity Danny, Functional Strength, Group Therapy, Gait, Safety, Therapeutic Exercise, Transfers Treatment Duration: Oct 31, 2019 Frequency: At least 5 of 7 days/Wk (IRF) Estimated Hrs Per Day: 1.5 hours per day Patient and/or Family Agrees t: Yes Safety Risks/Education Patient Education: Transfer Techniques, Safety Issues Teaching Recipient: Patient Teaching Methods: Demonstration, Discussion Response to Teaching: Reinforcement Needed Time/GCodes Time In: 1015 Time Out: 1025 (135-1120 co treat (45 min)[id number] individual treat.) Total Billed Treatment Time: 65 Total Billed Treatment visit x 2 EVM 10 FA 45 (co treat) GT 10 (individual treat) 65 minutes total YOUNG BERNSTEIN PT Oct 17, 2019 11:39
--- NOTE | 2019-10-17 12:21 | NUR ---
f pt name] admitted to room 233-1, with an admitting diagnosis of debility, on 10/17/19 from via wheelchair, accompanied by daughter.YONATHAN POWER introduced to surroundings, call light, bed controls, phone, TV, temperature control, lights, meal times, smoking policy, visitor policy, side rail policy, bathrooms and showers. Patient Rights given to patient in the handbook.YONATHAN POWER verbalizes understanding that [facility] is not responsible for the loss or damage to any personal effects or valuables that are kept in the patients posession during their hospitalization. The following Patient Care Plans were discussed with the pt and family: Discharge Planning. YONATHAN POWER verbalizes understanding of Interdisciplinary Patient Education. Patient and/or family were informed about the Rapid Response Team and its purpose.
[2019-10-17] MEDS ORDERED: TRIA1TAB3 PO (12:28)
[2019-10-17] MEDS ORDERED: ALPR0.5T7 PO (12:28)
[2019-10-17] MEDS ORDERED: DULO20CA19 PO (12:28)
[2019-10-17] MEDS ORDERED: LEVO50TA6 PO (12:28)
[2019-10-17] MEDS ORDERED: ATEN25TA PO (12:28)
[2019-10-17] MEDS ORDERED: ACET-2267 PO (12:28)
[2019-10-17] MEDS ORDERED: DICL100G31 TD (12:28)
[2019-10-17] MEDS ORDERED: OMEP20CA18 PO (12:28)
[2019-10-17] MEDS ORDERED: MULT1TAB69 PO (12:32)
[2019-10-17] MEDS ORDERED: CHOL10007 PO (12:32)
--- NOTE | 2019-10-17 12:33 | NUR ---
SPOKE WITH PT AND HER DAUGHTER (ALL THE HOME MEDS WERE THERE BUT THE DAUGHTERS WERE TAKING THEM HOME) AND WENT THRU THE EXT MED HISTORY TO COMPLETE THE MED REC. ALL MEDS WERE ON THE EXT MED HISTORY AND THERE WERE NO DISCREPANCIES ON HOW THE PT IS TAKING THEM OTC MEDS: [employer] TYLENOL VIT D
--- NOTE | 2019-10-17 13:34 | ST Cognitive Linguistic Eval ---
Speech Evaluation-General Medical Diagnosis Debility Onset Date: Oct 17, 2019 Therapy Diagnosis Therapy Diagnosis: Cognitive-communication Referral Referring Physician: Dr. Palacio Medical History Pertinent Medical History: Arthritis Reviewed History: Yes Social History Current Living Status: Children (son) Speech PLF-Current Status Prior Level of Function Patient lives with her son and was independent for much of her daily needs. Subjective Patient was pleasant and cooperative with the cognitive assessment. Language Eval: Auditory Comprehends Simple Yes/No Ques: Functional Indent/Objects Multiple Tong: Functional Ident/Pics in Multiple Tong: Functional Follows 1-Step Commands: Functional Follows Complex Directions: Functional Follows General Conversations: Functional Language Eval: Verbal Language Completes Spontaneous Greeting: Functional Produces Auto, Serial Info: Functional Imitates Simple Words/Phrases: Functional Word Finding: Functional Requests Basic Needs: Functional States Basic Personal Info: Functional Expresses Complex Ideas: Functional Objective Cognitive Domain Attention: WNL Memory: Mild Problem Solving: Functional Executive Functions: WNL Visuospatial Skills: WNL Composite Severity Rating: WNL Clock Drawing Severity Rating: WNL Objective Formal/Standardized Tests [facility] Mental Status ([facility]) Results 27/30, within normal range of function Oral Motor/Speech Production Within Normal Limits Impression The patient is a pleasant 79 year old female who was admitted to the ARU from her home due to debility. Patient has recently had Carpal Tunnel surgery and is just getting her feeling back per patient. The patient was given the UMS with a score of 27/30 obtained. The patient does not require further services from at this time. Speech Patient Assess Expression of Ideas/Wants: Expression (4) Understanding Verbal Content: Understands (4) Brief Interview-Mental Status: Yes Repetition of Three Words: Three (3) Temporal Orientation: Year: Correct (3) Temporal Orientation: Month: Accurate within 5 days(2) Temporal Orientation: Day: Correct (1) Recall : Wear to say "Sock": Yes, no cue required (2) Recall : Color: Yes, no cue required (2) Recall : Bed: Yes,after cueing (1) Memory/Recall Ability: Current season, That he or she is in a hsp/hsp unit Speech-Plan Patient/Family Goals Patient/Family Goals: The patient plans on returning to her home where she lives with her son. Treatment Plan Speech Therapy Treatment Plan: Discontinue ST Treatment Duration: Oct 17, 2019 Frequency: 1 time per week Estimated Hrs Per Day: .25 hour per day Rehab Potential: Good Barriers to Learning: None identified Pt/Family Agrees to Plan: Yes Safety Risks/Education Teaching Recipient: Patient Teaching Methods: Discussion Response to Teaching: Verbalize Understanding Education Topics Provided: Safety within her room and communication of wants/needs. Time Speech Therapy Time In: 13:00 Speech Therapy Time Out: 13:15 Total Billed Time: 15 Billed Treatment Time 1, AIDEE Clark Oct 17, 2019 13:34
--- NOTE | 2019-10-17 13:38 | Progress Note ---
ERIK LING,MED STUDENT 10/17/19 1338: Progress Note IRF Course Ms. Salinas is a 79yo female patient of Dr. Spears with a hx of HTN, hypothyroidism, restrictive lung disease, and spinal stenosis who was admitted to IRF due to decreased ability to care for herself and decreased mobility. She had a bilateral carpal tunnel release 6 weeks ago, and her family notes that since that time she has experienced pain that has limited the use of her hands and wrists, and has had a general decline in her strength. Her family also notes she has been more unsteady during this time, and they are worried about her living at home and caring for herself. Part of her unsteadiness is due to the pain limiting her use of the cane she normally uses for ambulation. She currently uses 3L of oxygen to sleep at night, and sees Dr. Quintero, pulmonology. She is currently taking a total of 2,000mg of Tylenol daily for pain, and she was recently started on Cymbalta on . Due to experiencing fatigue with activity, decreased strength, and unsteadiness, she would benefit from PT and OT to help with her functionality and ADL's. She has agreed to work with PT and OT, but states that she would like to leave by Thursday. She would benefit from 7-10 days of therapy focused on balance, activity tolerance, and strength. VAL WEST DO 10/17/19 1944: Supervisory-Addendum Brief Verification & Attestation Participated in pt care: history, MDM, physical Personally performed: exam, history, MDM, supervision of care Care discussed with: Medical Student Procedures: n/a Results interpretation: Verified all documentation Verification and Attestation of Medical Student E/M Service A medical student performed and documented this service in my presence. I reviewed and verified all information documented by the medical student and made modifications to such information, when appropriate. I personally performed the physical exam and medical decision making. Val West Oct 17, 2019,19:43 ERIK LING,MED STUDENT Oct 17, 2019 13:38 VAL WEST DO Oct 17, 2019 19:44
[2019-10-17] MEDS: ENOXAPARIN 40 MG/0.4 ML (LOVENOX) SYR SC SCH (13:45)
--- NOTE | 2019-10-17 15:40 | Physical Therapy Daily Note ---
PT Daily Note-Current Subjective Agrees to PT. No complaints Mental Status Patient Orientation: Person, Place, Time, Situation Transfers SCALE: Activities may be completed with or without assistive devices. 4-Hcekwphywn-muvygho completes the activity by him/herself with no assistance from a helper. 5-Set-up or Clean-up Assistance-helper sets up or cleans up; patient completes activity. [place] assists only prior to or following the activity. 4-Supervision or Touching Assistance-helper provides verbal cues and/or touching/steadying and/or contact guard assistance as patient completes activity. Assistance may be provided throughout the activity or intermittently. 3-Partial/Moderate Assistance-helper does LESS THAN HALF the effort. [place] lifts, holds or supports trunk or limbs, but provides less than half the effort. 2-Substantial/Maximal Assistance-helper does MORE THAN HALF the effort. [place] lifts or holds trunk or limbs and provides more than half the effort. 1-Qalwsijgv-eirzma does ALL the effort. Patient does none of the effort to complete the activity. Or, the assistance of 2 or more helpers is required for the patient to complete the activity. If activity was not attempted, code reason: 7-Patient Refused. 9-Not Applicable-not attempted and the patient did not perform the activity before the current illness, exacerbation or injury. 10-Not Attempted due to Environmental Limitations-(lack of equipment, weather restraints, etc.). 88-Not Attempted due to Medical Conditions or Safety Concerns. Sit to Stand (QC): 4 Chair/Lmr-ib-Zpmdw Xfer(QC): 4 intermittent cues for hand placement. Gait Training Walk 150 ft (QC): 4 Gait Assistive Device: FWW 150 ft x 3 with FWW with SBA; skilled cues for foot clearance and step length. Exercises NuStep Minutes: 12 (to increase LE strength and functional activity tolerance. ) Assessment Current Status: Good Progress Pt is compliant and tolerated her first day well. PT Short Term Goals Short Term Goals Time Frame: Oct 22, 2019 Sit to lyin Lying to sitting on side of be: 5 Walk 150 feet: 5 PT Custodial Goals Custodial Goals PT Custodial Goals Time Frame: Oct 31, 2019 Roll Left & Right (QC): 6 Sit to Lying (QC): 6 Lying-Sitting on Side/Bed(QC): 6 Sit to Stand (QC): 6 Chair/Rtc-pd-Lmjza Xfer(QC): 6 Toilet Transfer (QC): 6 Car Transfer (QC): 6 Does the Patient Walk: Yes Walk 10 feet (QC): 6 Walk 50ft with 2 Turns (QC): 6 Walk 150 ft (QC): 6 Walking 10ft on Uneven Surface: 5 1 Step (curb) (QC): 6 4 Steps (QC): 5 12 Steps (QC): 9 Picking up an Object (QC): 4 Does the Pt use WC or Scooter?: No PT Plan Problem List Problem List: Activity Tolerance, Functional Strength, Safety, Balance, Gait, Transfer, Bed Mobility Treatment/Plan Treatment Plan: Continue Plan of Care Treatment Plan: Bed Mobility, Education, Functional Activity Danny, Functional Strength, Group Therapy, Gait, Safety, Therapeutic Exercise, Transfers Treatment Duration: Oct 31, 2019 Frequency: At least 5 of 7 days/Wk (IRF) Estimated Hrs Per Day: 1.5 hours per day Patient and/or Family Agrees t: Yes Safety Risks/Education Patient Education: Safety Issues Teaching Recipient: Patient Teaching Methods: Discussion Response to Teaching: Reinforcement Needed Time/GCodes Time In: 1500 Time Out: 1524 Total Billed Treatment Time: 24 Total Billed Treatment visit EX 12 Gt 12 YOUNG BERNSTEIN PT Oct 17, 2019 15:40
[2019-10-17 17:00] VITALS: BP 126/87
[2019-10-17] MEDS ORDERED: ALPRAZolam 0.5 MG (XANAX) TAB PO PRN (20:30)
[2019-10-17] MEDS: DOCUSATE SODIUM 100 MG (COLACE) CAP PO SCH (21:10)
[2019-10-17] MEDS: SENNA W/DOCUSATE (SENOKOT S) TABLET PO SCH (21:11)
[2019-10-17] MEDS: polyethylene glycoL POWDER 17 GM (MIRALAX) PACK PO SCH (21:11)
[2019-10-17] MEDS: ACETAMINOPHEN 500 MG TAB (TYLENOL) PO SCH (21:18)
[2019-10-17] MEDS: DICLOFENAC 1% GEL 100 GM (VOLTAREN) TUBE TOP SCH (21:18)
[2019-10-18 06:00] VITALS: BP 132/84
[2019-10-18] MEDS: VITAMIN D3 25 MCG (1,000 UNITS) TABLET PO SCH (06:38)
[2019-10-18] MEDS: MULTIVIT W/MINERALS TAB (THERAGRAN M) PO SCH (06:38)
[2019-10-18] MEDS: LEVOTHYROXINE 50 MCG (LEVOTHROID) TAB PO SCH (06:38)
[2019-10-18 06:42] LABS: BASOPHILS % (AUTO) 0 % (0-10); EOSINOPHILS % (AUTO) 2 % (0-10); HEMATOCRIT 32 % (35-52); LYMPHOCYTES # (AUTO) 0.7 X 10^3 (1.0-4.0); LYMPHOCYTES % (AUTO) 34 % (12-44); MEAN CORPUSCULAR HEMOGLOBIN 31 PG (25-34); MEAN CORPUSCULAR HGB CONC 35 G/DL (32-36); MEAN CORPUSCULAR VOLUME 90 FL (80-99); MONOCYTES # (AUTO) 0.2 X 10^3 (0.0-1.0); MONOCYTES % (AUTO) 10 % (0-12); NEUTROPHILS # (AUTO) 1.1 X 10^3 (1.8-7.8); NEUTROPHILS % (AUTO) 53 % (42-75); PLATELET COUNT 104 10^3/uL (130-400); RED CELL DISTRIBUTION WIDTH 13.2 % (10.0-14.5)
[2019-10-18 07:06] LABS: BILIRUBIN,TOTAL 0.4 MG/DL (0.1-1.0); CALCIUM 8.6 MG/DL (8.5-10.1); CREATININE SERUM 0.97 MG/DL (0.60-1.30); POTASSIUM 4.6 MMOL/L (3.6-5.0); TOTAL PROTEIN 6.4 GM/DL (6.4-8.2)
[2019-10-18] MEDS ORDERED: TRIAMTERENE/HCTZ 75-50 (MAXZIDE,DYAZIDE) TABLET PO SCH (09:00)
--- NOTE | 2019-10-18 09:43 | PM&R Progress Note ---
Subjective HPI/CC On Admission Date Seen by Provider: Oct 18, 2019 Time Seen by Provider: 09:45 Subjective/Events-last exam Sodium level 124 so DC Dyazide and placed on fluid restriction of 800cc/day BM yesterday Patient feels better today I updated her on the low sodium level Labs reviewed from 2019 and it appears sodium level was 128 06/2019 and it has progressed since that time No pain is reported Checked meds and labs Conferred with RN Reviewed therapy notes Review of Systems General: Fatigue Neurological: Weakness, Incoordination Objective Exam Vital Signs Vital Signs Date Time Temp Pulse Resp B/P (MAP) Pulse Ox O2 Delivery O2 Flow Rate FiO2 10/18/19 16:25 36.2 62 14 101/65 (77) 96 Room Air 10/17/19 21:00 3.00 Capillary Refill : Less Than 3 Seconds General Appearance: No Apparent Distress, WD/WN, Chronically ill HEENT: PERRL/EOMI, Normal ENT Inspection, Pharynx Normal Neck: Full Range of Motion, Normal Inspection, Non Tender, Supple, Carotid Bruit Respiratory: Chest Non Tender, Lungs Clear, Normal Breath Sounds, No Accessory Muscle Use, No Respiratory Distress Cardiovascular: Regular Rate, Rhythm, No Edema, No Gallop, No JVD, No Murmur, Normal Peripheral Pulses Gastrointestinal: Normal Bowel Sounds, No Organomegaly, No Pulsatile Mass, Non Tender, Soft Back: Normal Inspection, No CVA Tenderness, No Vertebral Tenderness Extremity: Normal Capillary Refill, Normal Inspection, Normal Range of Motion, Non Tender, No Calf Tenderness, No Pedal Edema Neurologic/Psychiatric: Alert, Oriented x3, No Motor/Sensory Deficits, gatehouse attendant II- XII Norm as Tested, Abnormal Gait, Depressed Affect, Motor Weakness (generalized) Skin: Normal Color, Warm/Dry Lymphatic: No Adenopathy Results/Procedures Lab Laboratory Tests 10/18/19 05:35 Patient resulted labs reviewed. FIM Transfers Therapy Code Descriptions/Definitions Functional [place] Measure: 0=Not Assessed/NA 4=Minimal Assistance 1=Total Assistance 5=Supervision or Setup 2=Maximal Assistance 6=Modified [place] 3=Moderate Assistance 7=Complete IndependenceSCALE: Activities may be completed with or without assistive devices. 1-Mjgvhyfhcb-osdzowh completes the activity by him/herself with no assistance from a helper. 5-Set-up or Clean-up Assistance-helper sets up or cleans up; patient completes activity. [place] assists only prior to or following the activity. 4-Supervision or Touching Assistance-helper provides verbal cues and/or touching/steadying and/or contact guard assistance as patient completes activity. Assistance may be provided throughout the activity or intermittently. 3-Partial/Moderate Assistance-helper does LESS THAN HALF the effort. [place] lifts, holds or supports trunk or limbs, but provides less than half the effort. 2-Substantial/Maximal Assistance-helper does MORE THAN HALF the effort. [place] lifts or holds trunk or limbs and provides more than half the effort. 7-Wjwfjxfre-zzxhxq does ALL the effort. Patient does none of the effort to complete the activity. Or, the assistance of 2 or more helpers is required for the patient to complete the activity. If activity was not attempted, code reason: 7-Patient Refused. 9-Not Applicable-not attempted and the patient did not perform the activity before the current illness, exacerbation or injury. 10-Not Attempted due to Environmental Limitations-(lack of equipment, weather restraints, etc.). 88-Not Attempted due to Medical Conditions or Safety Concerns. Roll Left to Right (QC): 4 Sit to Lying (QC): 4 Sit to Stand (QC): 4 Chair/Hyd-jv-Mpuen Xfer(QC): 4 Car Transfer (QC): 4 Gait Training Does the Patient Walk?: Yes Walk 10 feet (QC): 4 Walk 50 ft with 2 Turns(QC): 3 Walk 150 ft (QC): 4 Walking 10ft/uneven surface-QC: 3 Gait Assistive Device: FWW Stair Training 1 Step (curb) (QC): 3 4 Steps (QC): 88 12 Steps (QC): 88 Balance Picking up an Object (QC): 88 ADL-Treatment Eating (QC): 6 Oral Hygiene (QC): 7 Shower/Bathe Self (QC): 7 Upper Body Dressing (QC): 7 Lower Body Dressing (QC): 7 On/Off Footwear (QC): 7 Toileting Hygiene (QC): 4 (SBA garrett hygiene) Assessment/Plan Assessment and Plan Assess & Plan/Chief Complaint Assessment: Debility Weakness HTN HLP Hypothyroidism Restrictive lung disease Oxygen dependency Depression Hyponatremia Plan: IRF protocol Home meds Monitor for pain and falls DC [place] Fluid restriction (1) Debility (2) Fall (3) Restrictive lung disease (4) Oxygen dependent (5) Hypertension (6) Hypothyroidism (7) GERD (gastroesophageal reflux disease) PARADISE WEST DO Oct 18, 2019 09:43
--- NOTE | 2019-10-18 09:43 | Individualized Plan of Care ---
Individualized Plan of Care Rehab Nursing IPOC Order Admission Date Oct 17, 2019 at 10:09 Current Orders Orders Admission Order(Inpt,Obs,Sdc) (10/17/19 09:43) Vital Signs: Per Unit Policy ( ,16,00 (10/17/19 09:43) Ross Bryant , (10/17/19 09:43) Sequential Compression Device Q4H (10/17/19 09:43) [employer] Driver-Inpt Rehab Con (10/17/19 09:43) Rehab Nursing Orders-Ipoc (10/17/19 09:43) Physical Therapy Rehab Orders (10/17/19 09:43) Occupational Therapy Rehab Ord (10/17/19 09:43) Speech Therapy Rehab Orders (10/17/19 09:43) Cbc With Automated Diff (10/18/19 06:00) Comprehensive Metabolic Panel (10/18/19 06:00) Intake & Output 06,14,22 (10/17/19 09:43) Precautions (Aru) (10/17/19 09:43) Weekly Weight WEEK (10/17/19 09:43) Rehab-Intensity Of Therapy (10/17/19 09:43) Initiate Admission Nursing Pro .admission (10/17/19 09:43) Acetaminophen Tablet (Tylenol Tablet) (10/17/19 09:45) Alprazolam Tablet (Xanax Tablet) (10/17/19 09:45) Calcium Carbonate Chew Tablet (Antacid C (10/17/19 09:45) Diphenhydramine Tablet (Benadryl Tablet) (10/17/19 09:45) Docusate Sodium Capsule (Colace Capsule) (10/17/19 21:00) Docusate Sodium Capsule (Colace Capsule) (10/17/19 09:45) Bisacodyl Suppository (Dulcolax Supposit (10/17/19 09:45) Lactulose Oral Solution (Enulose Oral So (10/17/19 09:45) Na Phos/Na Biphos Enema (Fleet Enema Harsh (10/17/19 09:45) Guaifenesin/Codeine Syrup (Robitussin Ac (10/17/19 09:45) Hydrocodone/Apap 5/325 Tablet (Lortab 5 (10/17/19 09:45) Ibuprofen Tablet (Motrin Tablet) (10/17/19 09:45) Loperamide Tablet (Imodium Tablet) (10/17/19 09:45) Enoxaparin Injection (Lovenox Injection) (10/17/19 09:45) Melatonin Tablet (Melatonin Tablet) (10/17/19 09:45) Polyethylene Glycol Powder Pkt (Miralax (10/17/19 21:00) Ondansetron Oral Dissolve Tab (Zofran (10/17/19 09:45) Senna S Tablet (Senokot S Tablet) (10/17/19 21:00) Tramadol Tablet (Ultram Tablet) (10/17/19 09:45) Initiate Admission Nursing Pro .admission (10/17/19 09:43) Ambulate 08,12,20 (10/17/19 12:19) Sequential Compression Device Q4H (10/17/19 12:19) Dvt/Vte Risk - Notifiy Physici Q4H (10/17/19 12:19) Patient Visit (10/17/19 ) Speech Sound Lang Comp (10/17/19 ) Patient Visit (10/17/19 ) Pt Eval Moderate Complexity (10/17/19 ) Functional Activities, Ea 15 (10/17/19 ) Gait Training, Ea 15 Min (10/17/19 ) Exercise Therap, Ea 15 Min (10/17/19 ) Acetaminophen Tablet (Tylenol Tablet) (10/17/19 21:00) Alprazolam Tablet (Xanax Tablet) (10/17/19 20:30) Atenolol Tablet (Tenormin Tablet) (10/18/19 09:00) Diclofenac 1% Gel (Voltaren 1% Gel) (10/17/19 21:00) Duloxetine Capsule (Cymbalta Capsule) (10/18/19 09:00) Levothyroxine Tablet (Synthroid Tablet) (10/18/19 06:30) Therapeutic Multivitamin Tab (Vitamins, (10/18/19 07:00) Cholecalciferol Capsule/Tablet (Vitamin (10/18/19 07:00) Pantoprazole Tablet (Protonix Tablet) (10/18/19 09:00) General/Regular (10/18/19 Lunch) Nursing Communication (Order) (10/18/19 07:43) Patient Visit (10/18/19 ) Exercise Therap, Ea 15 Min (10/18/19 ) Ex Neuromuscular, Ea 15 Min (10/18/19 ) Gait Training, Ea 15 Min (10/18/19 ) Rehab Nursing Orders: Ongoing Assess. of Cognitive Status, Ongoing Assess. of Function Status, Bladder Management, Bladder Scan, Bladder Training, Bowel Management, Bowel Training, Disease Management & Educaiton, DVT Prophylaxis, Fall Prevention, Fluid/Electrolyte/Nutrition Mgmt, Medication Management & Education, Nutrition Management, Pain Management, Patient/Family Support, Safety Management Intensity of Therapy to be met Patient to be seen: Min.3h per day/5 of 7d PT IPOC Problem List: Activity Tolerance, Functional Strength, Safety, Balance, Gait, Transfer, Bed Mobility Treatment Plan: Continue Plan of Care Bed Mobility, Education, Functional Activity Danny, Functional Strength, Group Therapy, Gait, Safety, Therapeutic Exercise, Transfers Treatment Duration: Oct 31, 2019 Frequency: At least 5 of 7 days/Wk (IRF) Estimated Hrs Per Day: 1.5 hours per day OT IPOC Problems: Decreased Activ Tolerance, Decreased UE Strength, Dependent Transfers, Impaired Funct Balance, Impaired I ADL's, Impaired Self-Care Skills OT Treatment, Training and Edu: Yes Plan of Care: ADL Retraining, Caregiver Training, Concurrent Therapy, Functional Mobility, Group Exercise/Act as Ind, UE Funct Exercise/Act Treatment Duration: Oct 31, 2019 Frequency: At least 5 of 7 days/Wk (IRF) Estimated Hrs Per Day: 1.[address] IPOC Speech Therapy Treatment Plan: Discontinue ST Treatment Duration: Oct 17, 2019 Frequency: 1 time per week Estimated Hrs Per Day: .25 hour per day [employer] Driver/Case Mgmt [employer] Driver/Case Managemen: Discharge Planning Dietitian/Debate Director Dietitian/Debate Director to monitor nutritional status and make changes and/or recommendations as needed and work with speech pathology on dietary upgrades as the occur. Physician IPOC Medical Issues being managed closely and that require the 24 hour availability of a physician: New dx of hyponatremia with falls and overall weakness will require close monitoring of labs in order to assure sodium level returns to safe level Medical Issues: Bowel/Bladder Function, DVT Prophylaxis, Falls Precautions, Fluid/Electrolyte/Nutrition Balance, Infection Protection, Pain Management Brief Synthesis of Preadmission Screen, Post-Admission Evaluation, and Therapy Evaluations: PT OT will focus on regaining independence and ambulatory skills and build stamina Medical Prognosis: Good Anticipated Length of Stay: 7 days PARADISE WEST DO Oct 18, 2019 09:43
[2019-10-18] MEDS: SENNA W/DOCUSATE (SENOKOT S) TABLET PO SCH ×2 (09:57→21:00)
[2019-10-18] MEDS: polyethylene glycoL POWDER 17 GM (MIRALAX) PACK PO SCH ×2 (09:57→21:00)
[2019-10-18] MEDS: PANTOPRAZOLE 20 MG TABLET (PROTONIX) PO SCH (09:58)
[2019-10-18] MEDS: DOCUSATE SODIUM 100 MG (COLACE) CAP PO SCH ×2 (09:58→21:00)
[2019-10-18] MEDS: ATENOLOL 25 MG (TENORMIN) TAB PO SCH (09:58)
[2019-10-18] MEDS: ACETAMINOPHEN 500 MG TAB (TYLENOL) PO SCH ×2 (09:58→20:27)
--- NOTE | 2019-10-18 10:04 | Physical Therapy Daily Note ---
PT Daily Note-Current Subjective Agrees to PT. Reports she did not sleep well last night. Mental Status Patient Orientation: Person, Place, Time, Situation Transfers SCALE: Activities may be completed with or without assistive devices. 8-Axgurvxuns-tfagzru completes the activity by him/herself with no assistance from a helper. 5-Set-up or Clean-up Assistance-helper sets up or cleans up; patient completes activity. [place] assists only prior to or following the activity. 4-Supervision or Touching Assistance-helper provides verbal cues and/or touching/steadying and/or contact guard assistance as patient completes activity. Assistance may be provided throughout the activity or intermittently. 3-Partial/Moderate Assistance-helper does LESS THAN HALF the effort. [place] lifts, holds or supports trunk or limbs, but provides less than half the effort. 2-Substantial/Maximal Assistance-helper does MORE THAN HALF the effort. [place] lifts or holds trunk or limbs and provides more than half the effort. 5-Pdfbeowix-prbujd does ALL the effort. Patient does none of the effort to complete the activity. Or, the assistance of 2 or more helpers is required for the patient to complete the activity. If activity was not attempted, code reason: 7-Patient Refused. 9-Not Applicable-not attempted and the patient did not perform the activity before the current illness, exacerbation or injury. 10-Not Attempted due to Environmental Limitations-(lack of equipment, weather restraints, etc.). 88-Not Attempted due to Medical Conditions or Safety Concerns. Lying to Sitting/Side of Bed(Q: 4 Sit to Stand (QC): 4 Chair/Ghj-uo-Bbmhb Xfer(QC): 4 Toilet Transfer (QC): 4 SBA with functional transfers with intermittent cues for hand placement. Pt uses grab bars by the toilet. Pt is SBA with pericare and clothing management to toilet. SBA to stand at the sink to wash her hands. Gait Training Does the Patient Walk?: Yes Distance: 200 ft x 2; 50 ft x 2 Gait Assistive Device: FWW Functional gait training with cues for posture and sequencing; cues to increase step length and foot clearance. Stair Training Stair Training: Handrails/: 2 handrails 4 Steps (QC): 3 (CGA for safety and cues for sequencing. ) Stairs: Pattern: Step to Exercises Seated Therapy Exercises: Ankle pumps (15), Sit to stand (2x5), Long arc quads (15), Hip flexion (15), Hamstring Curls (15) Standing: Hip Abduction, Heel/toe raises, Marching, Mini squats Standing Reps: 12 LE ther ex for functional strength to progress gait distance and activity tolerance. Treatments Bed mobility, toileting, gait, ther ex and functional balance to complete funcitonal tasks. Assessment Current Status: Good Progress Follows cues well. Progressing with strength andmobiltiy. PT Short Term Goals Short Term Goals Time Frame: Oct 22, 2019 Sit to lyin Lying to sitting on side of be: 5 Walk 150 feet: 5 PT Plastic Bubble Packer Goals [facility] Goals PT Plastic Bubble Packer Goals Time Frame: Oct 31, 2019 Roll Left & Right (QC): 6 Sit to Lying (QC): 6 Lying-Sitting on Side/Bed(QC): 6 Sit to Stand (QC): 6 Chair/Osq-wb-Jgoul Xfer(QC): 6 Toilet Transfer (QC): 6 Car Transfer (QC): 6 Does the Patient Walk: Yes Walk 10 feet (QC): 6 Walk 50ft with 2 Turns (QC): 6 Walk 150 ft (QC): 6 Walking 10ft on Uneven Surface: 5 1 Step (curb) (QC): 6 4 Steps (QC): 5 12 Steps (QC): 9 Picking up an Object (QC): 4 Does the Pt use WC or Scooter?: No PT Plan Problem List Problem List: Activity Tolerance, Functional Strength, Safety, Balance, Gait, Transfer, Bed Mobility Treatment/Plan Treatment Plan: Continue Plan of Care Treatment Plan: Bed Mobility, Education, Functional Activity Danny, Functional Strength, Group Therapy, Gait, Safety, Therapeutic Exercise, Transfers Treatment Duration: Oct 31, 2019 Frequency: At least 5 of 7 days/Wk (IRF) Estimated Hrs Per Day: 1.5 hours per day Patient and/or Family Agrees t: Yes Safety Risks/Education Patient Education: Transfer Techniques Teaching Recipient: Patient Teaching Methods: Demonstration, Discussion Response to Teaching: Reinforcement Needed Time/GCodes Time In: 815 Time Out: 915 Total Billed Treatment Time: 60 Total Billed Treatment visit GT 15 NM 15 EX 30 YOUNG BERNSTEIN PT Oct 18, 2019 10:04
[2019-10-18] MEDS: ENOXAPARIN 40 MG/0.4 ML (LOVENOX) SYR SC SCH (10:23)
[2019-10-18] MEDS: DULoxetine 20 MG (CYMBALTA) CAP PO SCH (10:26)
[2019-10-18] MEDS: DICLOFENAC 1% GEL 100 GM (VOLTAREN) TUBE TOP SCH ×4 (10:37→20:27)
--- NOTE | 2019-10-18 10:45 | Occupational Ther Daily Note ---
OT Current Status-Daily Note Subjective Pt seated upright in recliner, agreeable to OT tx this AM with focus on ADLs. She did not verbalize any pain during tx. Mental Status/Objective Patient Orientation: Normal For Age ADL-Treatment Therapy Code Descriptions/Definitions Functional [place] Measure: 0=Not Assessed/NA 4=Minimal Assistance 1=Total Assistance 5=Supervision or Setup 2=Maximal Assistance 6=Modified [place] 3=Moderate Assistance 7=Complete IndependenceSCALE: Activities may be completed with or without assistive devices. 3-Chzpyibdbe-vjhlheg completes the activity by him/herself with no assistance from a helper. 5-Set-up or Clean-up Assistance-helper sets up or cleans up; patient completes activity. [place] assists only prior to or following the activity. 4-Supervision or Touching Assistance-helper provides verbal cues and/or touching/steadying and/or contact guard assistance as patient completes activity. Assistance may be provided throughout the activity or intermittently. 3-Partial/Moderate Assistance-helper does LESS THAN HALF the effort. [place] lift s, holds or supports trunk or limbs, but provides less than half the effort. 2-Substantial/Maximal Assistance-helper does MORE THAN HALF the effort. [place] lifts or holds trunk or limbs and provides more than half the effort. 9-Ehfbausto-iamvbr does ALL the effort. Patient does none of the effort to complete the activity. Or, the assistance of 2 or more helpers is required for the patient to complete the activity. If activity was not attempted, code reason: 7-Patient Refused. 9-Not Applicable-not attempted and the patient did not perform the activity before the current illness, exacerbation or injury. 10-Not Attempted due to Environmental Limitations-(lack of equipment, weather restraints, etc.). 88-Not Attempted due to Medical Conditions or Safety Concerns. Oral Hygiene (QC): 4 (SBA standing at sink with FWW) Shower/Bathe Self (QC): 4 (SBA during stand at GBs. Pt able to wash all parts.) Upper Body Dressing (QC): 4 (SBA Pt donned/doffed bra and machine puller shirt. ) Lower Body Dressing (QC): 4 (SBA, pt donned/doffed briefs and pants. She comple eric all parts with SBA during stand at FWW and GBs) On/Off Footwear: 4 (SBA during donning/doffing socks and slip on shoes) Toileting Hygiene (QC): 4 (SBA standing at FWW during clothing management) Toilet Transfer (QC): 4 (CGA during transfer on/off toilet) Other Treatment Pt sitting in recliner, performed functional mobility to sink with FWW, CGA. She completed oral hygiene, then transferred to toilet to complete toileting. She then transferred to MN where she completed showering and dressing (see notes above). Pt required increased time during shower, with min cues to take rest breaks as needed during task. Pt returned to recliner. Post OT session, pt seated upright in recliner, call light in reach and all needs met. Nursing present giving pt meds. Education OT Patient Education: Correct positioning, Energy conservation, Modified ADL techniques, Progress toward Goal/Update tx plan, Purpose of tx/functional activities Teaching Recipient: Patient Teaching Methods: Discussion Response to Teaching: Verbalize Understanding OT Short Term Goals Short Term Goals Upper body dressin Lower body dressin OT [place] Dehydrator Operator Goals [place] Dehydrator Operator Goals Time Frame: Oct 31, 2019 Eating (QC): 6 Oral Hygiene (QC): 6 Toileting Hygiene (QC): 6 Shower/Bathe Self (QC): 6 Upper Body Dressing (QC): 6 Lower Body Dressing (QC): 6 On/Off Footwear (QC): 6 Additional Goals: 1-Demonstrate ADL Tasks, 2-Verbalize Understanding, 3- ImproveStrength/Danny 1=Demonstrate adherence to instructed precautions during ADL tasks. 2=Patient will verbalize/demonstrate understanding of assistive devices/modifications for ADL. 3=Patient will improve strength/tolerance for activity to enable patient to perform ADL's. OT Education/Plan Problem List/Assessment Assessment: Decreased Activ Tolerance, Decreased UE Strength, Impaired I ADL's, Impaired Self-Care Skills Discharge Recommendations Plan/Recommendations: Continue POC Treatment Plan/Plan of Care Treatment,Training & Education: Yes Patient would benefit from OT for education, treatment and training to promote independence in ADL's, mobility, safety and/or upper extremity function for ADL's. Plan of Care: ADL Retraining, Caregiver Training, Concurrent Therapy, F unctional Mobility, Group Exercise/Act as Ind, UE Funct Exercise/Act Treatment Duration: Oct 31, 2019 Frequency: At least 5 of 7 days/Wk (IRF) Estimated Hrs Per Day: 1.5 hours per day Agreement: Yes Rehab Potential: Good Time/GCodes Start Time: 09:30 Stop Time: 10:30 Total Time Billed (hr/min): 60 Billed Treatment Time 1, ADL 4 KAYLIN YIP OT Oct 18, 2019 10:45
--- NOTE | 2019-10-18 11:45 | Physical Therapy Daily Note ---
PT Daily Note-Current Subjective Agreeable to PT. Mental Status Patient Orientation: Person, Place, Time, Situation Transfers SCALE: Activities may be completed with or without assistive devices. 1-Todiineyct-xscrpdk completes the activity by him/herself with no assistance from a helper. 5-Set-up or Clean-up Assistance-helper sets up or cleans up; patient completes activity. [place] assists only prior to or following the activity. 4-Supervision or Touching Assistance-helper provides verbal cues and/or touching/steadying and/or contact guard assistance as patient completes activity. Assistance may be provided throughout the activity or intermittently. 3-Partial/Moderate Assistance-helper does LESS THAN HALF the effort. [place] lifts, holds or supports trunk or limbs, but provides less than half the effort. 2-Substantial/Maximal Assistance-helper does MORE THAN HALF the effort. [place] lifts or holds trunk or limbs and provides more than half the effort. 7-Aaxphqkhg-bsqprk does ALL the effort. Patient does none of the effort to complete the activity. Or, the assistance of 2 or more helpers is required for the patient to complete the activity. If activity was not attempted, code reason: 7-Patient Refused. 9-Not Applicable-not attempted and the patient did not perform the activity before the current illness, exacerbation or injury. 10-Not Attempted due to Environmental Limitations-(lack of equipment, weather restraints, etc.). 88-Not Attempted due to Medical Conditions or Safety Concerns. Sit to Stand (QC): 4 (SBA with transfers.) Gait Training Pt ambulated 150 ft x 2 with FWW with SBA. Exercises NuStep Minutes: 15 (to promote LE strenght and functional act tolerance. ) Assessment Current Status: Good Progress Tolerated gait and exercises well. PT Short Term Goals Short Term Goals Time Frame: Oct 22, 2019 Sit to lyin Lying to sitting on side of be: 5 Walk 150 feet: 5 PT Air Drill Operator Goals Half-Way Goals PT Half-Way Goals Time Frame: Oct 31, 2019 Roll Left & Right (QC): 6 Sit to Lying (QC): 6 Lying-Sitting on Side/Bed(QC): 6 Sit to Stand (QC): 6 Chair/Nqr-jk-Szlnk Xfer(QC): 6 Toilet Transfer (QC): 6 Car Transfer (QC): 6 Does the Patient Walk: Yes Walk 10 feet (QC): 6 Walk 50ft with 2 Turns (QC): 6 Walk 150 ft (QC): 6 Walking 10ft on Uneven Surface: 5 1 Step (curb) (QC): 6 4 Steps (QC): 5 12 Steps (QC): 9 Picking up an Object (QC): 4 Does the Pt use WC or Scooter?: No PT Plan Problem List Problem List: Activity Tolerance, Functional Strength, Safety Treatment/Plan Treatment Plan: Continue Plan of Care Treatment Plan: Bed Mobility, Education, Functional Activity Danny, Functional Strength, Group Therapy, Gait, Safety, Therapeutic Exercise, Transfers Treatment Duration: Oct 31, 2019 Frequency: At least 5 of 7 days/Wk (IRF) Estimated Hrs Per Day: 1.5 hours per day Patient and/or Family Agrees t: Yes Time/GCodes Time In: 1115 Time Out: 1145 Total Billed Treatment Time: 30 Total Billed Treatment visit EX 15 GT 15 YOUNG BERNSTEIN PT Oct 18, 2019 11:45
--- NOTE | 2019-10-18 12:46 | NUR ---
CM/SS ADMISSION Patient admitted to ARU 10/17/19 from home for debility. She has history of carpel tunnel syndrome surgery 09/08/19 at [facility]. Patient and family describe that post op patient had a progressive decline; continued pain, limited use of hands/wrists, decreased strength, and unsteadiness. Other health challenges include, in part, O2 dependence, HTN, restrictive lung disease. Patient reports that she slid out of bed recently and hit her head on her closet. PCP made referral for ARU and patient did not agree to admit for a period of time. Once here, she has stated she only agrees to stay 5 days, to be determined. Patient resided at home along with her youngest son, Denton Salinas, prior to surgery and hospitalizations. She indicates she was IADL before surgery, that after her procedure she had pain in her hand and shoulder. She normally used a cane which became difficult because of the surgical sites and she resorted to the 4WW. DME: Has 4WW/seat, home O2 through [facility] (3L noc and w/exertion), cane, ramp, 2 shower chairs, grab bars in shower. Partner with therapy team regarding recommendations for additional assistive device. PCP: Dr. Maritza Spears, [place], [place] PHARMACY: [facility] INSURANCE: Medicare, CV Ingenuity Supplement CONTACTS: Patient was 10/03/18 when her spouse Tony Fenton" Brad passed. They have 4 children, 3 boys and one girl. Denton Salinas, Son, resides with patient [address] [place] [address] Blanka Craig, Daughter [place], [place] [phone] Melvina Salinas, Son, [place], [place] Etiennesergei Salinas, Son, [place], [place] CAREGIVER AVAILABILITY: Patient and son Denton reside together, science writer inquired about how much time she is alone regarding his employment. Patient indicates that since his father , he has remained at home with patient and does not leave her for any significant period of time. Denton apparently does not cook and patient has been doing little, they go through drive-thru's to get foods when in town on errands. Patient's stated goals are to return home and continue to recuperate there, her admission ELOS is 7 days. She understood the purpose and process of the weekly Patient Care Conference; however, she is adamant she intends to discharge 10/21/19, for home. Discussed bridging [facility] services short term, patient has limited interest at this time.
--- NOTE | 2019-10-18 13:24 | Occupational Ther Daily Note ---
OT Current Status-Daily Note Subjective Pt seated upright in recliner, agreeable to OT tx. She did not report any pain. Mental Status/Objective Patient Orientation: Normal For Age ADL-Treatment Therapy Code Descriptions/Definitions Functional [place] Measure: 0=Not Assessed/NA 4=Minimal Assistance 1=Total Assistance 5=Supervision or Setup 2=Maximal Assistance 6=Modified [place] 3=Moderate Assistance 7=Complete IndependenceSCALE: Activities may be completed with or without assistive devices. 5-Yfuurqakfh-dpetoxz completes the activity by him/herself with no assistance from a helper. 5-Set-up or Clean-up Assistance-helper sets up or cleans up; patient completes activity. [place] assists only prior to or following the activity. 4-Supervision or Touching Assistance-helper provides verbal cues and/or touching/steadying and/or contact guard assistance as patient completes activity. Assistance may be provided throughout the activity or intermittently. 3-Partial/Moderate Assistance-helper does LESS THAN HALF the effort. [place] lifts, holds or supports trunk or limbs, but provides less than half the effort. 2-Substantial/Maximal Assistance-helper does MORE THAN HALF the effort. [place] lifts or holds trunk or limbs and provides more than half the effort. 9-Uikrpcbuw-ymnpzk does ALL the effort. Patient does none of the effort to complete the activity. Or, the assistance of 2 or more helpers is required for the patient to complete the activity. If activity was not attempted, code reason: 7-Patient Refused. 9-Not Applicable-not attempted and the patient did not perform the activity before the current illness, exacerbation or injury. 10-Not Attempted due to Environmental Limitations-(lack of equipment, weather restraints, etc.). 88-Not Attempted due to Medical Conditions or Safety Concerns. Eating (QC): 6 (per pt report, she had no difficulty opening bag of chips at lunch and eating food.) Toileting Hygiene (QC): 4 (SBA) Toilet Transfer (QC): 4 (SBA) Other Treatment Pt seated in recliner, then went to restroom to complete toileting. Pt washed hands standing at sink, then put on her make up. Pt ambulated to therapy gym where she completed x10 mins on arm bike, min resistance in order to increase functional endurance and UE strengthening. Pt completed x5 mins backwards, then x5 mins forward on the arm bike. Pt returned to her room, and transferred to bed with SBA. Post OT session, pt laying down, call light in reach and all needs met. Education OT Patient Education: Correct positioning, Energy conservation, Exercise program, Modified ADL techniques, Progress toward Goal/Update tx plan, Purpose of tx/functional activities Teaching Recipient: Patient Teaching Methods: Discussion Response to Teaching: Verbalize Understanding OT Short Term Goals Short Term Goals Upper body dressin Lower body dressin OT Mcc Goals Mcc Goals Time Frame: Oct 31, 2019 Eating (QC): 6 Oral Hygiene (QC): 6 Toileting Hygiene (QC): 6 Shower/Bathe Self (QC): 6 Upper Body Dressing (QC): 6 Lower Body Dressing (QC): 6 On/Off Footwear (QC): 6 Additional Goals: 1-Demonstrate ADL Tasks, 2-Verbalize Understanding, 3-ImproveStrength/Danny 1=Demonstrate adherence to instructed precautions during ADL tasks. 2=Patient will verbalize/demonstrate understanding of assistive devices/modifications for ADL. 3=Patient will improve strength/tolerance for activity to enable patient to perform ADL's. OT Education/Plan Problem List/Assessment Assessment: Decreased Activ Tolerance, Decreased UE Strength, Impaired I ADL's, Impaired Self-Care Skills Discharge Recommendations Plan/Recommendations: Continue POC Treatment Plan/Plan of Care Patient would benefit from OT for education, treatment and training to promote independence in ADL's, mobility, safety and/or upper extremity function for ADL's. Plan of Care: ADL Retraining, Caregiver Training, Concurrent Therapy, Functional Mobility, Group Exercise/Act as Ind, UE Funct Exercise/Act Treatment Duration: Oct 31, 2019 Frequency: At least 5 of 7 days/Wk (IRF) Estimated Hrs Per Day: 1.5 hours per day Agreement: Yes Rehab Potential: Good Time/GCodes Start Time: 13:00 Stop Time: 13:30 Total Time Billed (hr/min): 30 Billed Treatment Time 1, ADL (20'), EX (10') KAYLIN YIP OT Oct 18, 2019 13:24
--- NOTE | 2019-10-18 14:34 | NUR ---
"RD ASSESSMENT PMHx: emphysema; restricted lung disease; hypercholesterolemia; HTN; GERD; hypothyroid PT INTERACTION: Pt was awake and pleasant during nutrition assessment. Pt states current appetite is poor, and has been this way for some time. Note avg PO intake 75% x1d, per chart review. Pt states following a regular diet at home and has no issues with chewing/swallowing food. Pt states no recent issues with n/v/c/d at this time. Note last BM was 10/16 and pt currently on bowel regimen of colace BID; senna BID; and miralax BID, per chart review. Pt states some recent wt gain, but unsure of amount/timeframe. Note unable to determine recent wt hx, per chart review. ABNORMAL NUTRITION-RELATED LAB VALUES LOW: Na 124; Cl 94; alb 3.0 HIGH: BUN 21; AST 57 Est. kcal needs: 7532-5409 kcal | 20-25 kcal/kg Est. Pro needs: 72-89 g Pro | 0.8-1.0 g Pro/kg PES STATEMENT: Given PO intake, no nutrition diagnosis at this time (NO-1.1) INTERVENTION: Continue with current diet order of Regular diet. Will continue to follow and reassess as pt needs, intake, and status change. MONITOR/EVALUATE: PO Intake; Plan of Care; Hydration Status; Weight Status; Lab Values Kelvin Rodarte, , RD, LD"
[2019-10-18 16:25] VITALS: BP 101/65
[2019-10-18] MEDS: MELATONIN 3 MG TABLET PO PRN (20:27)
[2019-10-19] MEDS: MULTIVIT W/MINERALS TAB (THERAGRAN M) PO SCH (05:26)
[2019-10-19] MEDS: VITAMIN D3 25 MCG (1,000 UNITS) TABLET PO SCH (05:26)
[2019-10-19] MEDS: LEVOTHYROXINE 50 MCG (LEVOTHROID) TAB PO SCH (05:26)
[2019-10-19 06:47] LABS: BUN/CREATININE RATIO 18; CALCIUM 8.4 MG/DL (8.5-10.1); CARBON DIOXIDE 20 MMOL/L (21-32); CHLORIDE 97 MMOL/L (98-107); GFR ESTIMATED > 60; GLUCOSE 91 MG/DL (70-105); POTASSIUM 4.3 MMOL/L (3.6-5.0)
[2019-10-19 06:57] VITALS: BP 101/63
[2019-10-19 07:03] LABS: SODIUM 125 MMOL/L (135-145)
--- NOTE | 2019-10-19 08:42 | Consultation ---
History of Present Illness History of Present Illness Patient Consulted On(iván/time) 10/19/19 08:42 Allergies and Home Medications Allergies Coded Allergies: No Known Drug Allergies (Unverified , 12/22/12) Home Medications Acetaminophen 500 Mg Tablet, 1,000 MG PO BID, (Reported) Alprazolam 0.5 Mg Tablet, 0.5 MG PO HS PRN for SLEEP, (Reported) Atenolol 25 Mg Tablet, 25 MG PO DAILY, (Reported) Cholecalciferol (Vitamin D3) 25 Mcg Capsule, 25 MCG PO DAILY, (Reported) Diclofenac Sodium 100 Gm Gel..gram., 2 GM TD QID, (Reported) APPLY TO LEFT WRIST, BOTH SHOULDERS AND UPPER NECK Duloxetine HCl 20 Mg Capsule.dr, 20 MG PO DAILY, (Reported) Levothyroxine Sodium 50 Mcg Tablet, 50 MCG PO DAILY, (Reported) Multivitamin 1 Each Tablet, 1 EACH PO DAILY, (Reported) Omeprazole 20 Mg Capsule.dr, 20 MG PO DAILY, (Reported) Triamterene/Hydrochlorothiazid 1 Each Tablet, 1 EA PO DAILY, (Reported) Past Lljcnbj-Idgsqi-Cmnscp Hx Past Med/Social Hx: Reviewed Nursing Past Med/Soc Hx, Reviewed and Corrections made Patient Social History Alcohol Use: Denies Use Number of Drinks Today: AA Recreational Drug Use: No Smoking Status: Never a Smoker Recent Foreign Travel: No Contact w/Someone Who Travel: No Recent Infectious Disease Expo: No Recent Hopitalizations: No Immunizations Up To Date Date of Pneumonia Vaccine: Apr 03, 2011 Date of Influenza Vaccine: May 18, 2019 Seasonal Allergies Seasonal Allergies: No Past Medical History Surgeries: Yes Respiratory: Yes (Restrictive lung disease) Currently Using CPAP: No Currently Using BIPAP: No Cardiac: Yes High Cholesterol, Hypertension Neurological: No Reproductive Disorders: No Sexually Transmitted Disease: No HIV/AIDS: No Genitourinary: No Bladder Infection Gastrointestinal: Yes Gastroesophageal Reflux, Hiatal Hernia Musculoskeletal: Yes Arthritis Endocrine: Yes Hypothyroidsim HEENT: No Loss of Vision: Denies Hearing Impairment: Hard of Hearing Cancer: No Psychosocial: Yes Sleep Difficulties, Depression Integumentary: No Blood Disorders: No Adverse Reaction/Blood Tranf: No Family Medical History Arthritis 19 FATHER 19 MOTHER Cancer of mouth G8 SISTER Cardiovascular disease 19 MOTHER G8 BROTHER G8 SISTER G8 SISTER G8 SISTER Hypertension 19 FATHER 19 MOTHER Myocardial infarction 19 MOTHER G8 BROTHER G8 SISTER G8 SISTER Review of Systems Review of Systems General: Fatigue Neurological: Weakness, Incoordination All Other Systems Reviewed All Other Systems Reviewed: Yes Physical Exam Vital Signs Vital Signs - First Documented 10/17/19 10/17/19 10:35 21:00 Temp 36.1 Pulse 70 Resp 18 B/P (MAP) 114/66 Pulse Ox 97 O2 Delivery Room Air O2 Flow Rate 3.00 Capillary Refill : Less Than 3 Seconds Height, Weight, BMI Height: 5'4.00" Weight: 227lbs. 0.0oz. [id number]; 33.85 BMI Method:Stated Assessment/Plan Assessment/Plan Problems: (1) Debility (2) Fall (3) Restrictive lung disease (4) Oxygen dependent (5) Hypertension (6) Hypothyroidism (7) GERD (gastroesophageal reflux disease) Clinical Quality Measures DVT/VTE Risk/Contraindication: Risk Factor Score Per Nursin RFS Level Per Nursing on Admit: 4+=Very High BALWINDER SAWYER MD Oct 19, 2019 08:42
[2019-10-19] MEDS: DICLOFENAC 1% GEL 100 GM (VOLTAREN) TUBE TOP SCH ×4 (09:24→21:49)
[2019-10-19] MEDS: SENNA W/DOCUSATE (SENOKOT S) TABLET PO SCH ×2 (09:26→21:48)
[2019-10-19] MEDS: DOCUSATE SODIUM 100 MG (COLACE) CAP PO SCH ×2 (09:26→21:48)
[2019-10-19] MEDS: DULoxetine 20 MG (CYMBALTA) CAP PO SCH (09:26)
[2019-10-19] MEDS: polyethylene glycoL POWDER 17 GM (MIRALAX) PACK PO SCH ×2 (09:27→21:48)
[2019-10-19] MEDS: PANTOPRAZOLE 20 MG TABLET (PROTONIX) PO SCH (09:27)
[2019-10-19] MEDS: ACETAMINOPHEN 500 MG TAB (TYLENOL) PO SCH ×2 (09:27→21:49)
[2019-10-19] MEDS: ENOXAPARIN 40 MG/0.4 ML (LOVENOX) SYR SC SCH (09:28)
[2019-10-19 09:29] VITALS: BP 85/59
--- NOTE | 2019-10-19 09:29 | NUR ---
table games shift manager RN reported that she noticed that pt wasn't following directions, or cues, very well last night, when helping her get ready for bed. Pt was walking out of bathroom herself w/o turning call lt on, walking on the bottoms of her pant legs. Pt forgetful, kept asking the same questions over, as to why can't I drink more water ? (Fluid Restriction d/t decreased sodium level). Dr. Spears here now, talking w pt, notified of this. Reports that this has been pt's baseline, that her last year, & that pt may have some owner's. States that pt has been flat, & vague for some time. Dr. Spears states that pt does appear improved since when she saw her in the office recently, appears more perky & brighter than that day. encouraged pt to eat.
--- NOTE | 2019-10-19 09:32 | Occupational Ther Daily Note ---
OT Current Status-Daily Note Subjective Pt laying in bed sleeping, easily awoken for therapy. She did not report any pain during tx. ADL-Treatment Therapy Code Descriptions/Definitions Functional [place] Measure: 0=Not Assessed/NA 4=Minimal Assistance 1=Total Assistance 5=Supervision or Setup 2=Maximal Assistance 6=Modified [place] 3=Moderate Assistance 7=Complete IndependenceSCALE: Activities may be completed with or without assistive devices. 0-Wbdlyoqwqy-iaqcagg completes the activity by him/herself with no assistance from a helper. 5-Set-up or Clean-up Assistance-helper sets up or cleans up; patient completes activity. [place] assists only prior to or following the activity. 4-Supervision or Touching Assistance-helper provides verbal cues and/or touching/steadying and/or contact guard assistance as patient completes activity. Assistance may be provided throughout the activity or intermittently. 3-Partial/Moderate Assistance-helper does LESS THAN HALF the effort. [place] lifts, holds or supports trunk or limbs, but provides less than half the effort. 2-Substantial/Maximal Assistance-helper does MORE THAN HALF the effort. [place] lifts or holds trunk or limbs and provides more than half the effort. 0-Smycsxbdd-amnsrp does ALL the effort. Patient does none of the effort to complete the activity. Or, the assistance of 2 or more helpers is required for the patient to complete the activity. If activity was not attempted, code reason: 7-Patient Refused. 9-Not Applicable-not attempted and the patient did not perform the activity before the current illness, exacerbation or injury. 10-Not Attempted due to Environmental Limitations-(lack of equipment, weather restraints, etc.). 88-Not Attempted due to Medical Conditions or Safety Concerns. Eating (QC): 6 (Pt ate breakfast without assistance.) Oral Hygiene (QC): 4 (SBA standing at sink) Upper Body Dressing (QC): 5 (set up ) Lower Body Dressing (QC): 4 (CGA during stand at GBs. Pt required cues for safety during task. Pt started to put her pants on, required cue to change her underwear 1st. Pt replied she thought she had already, although she had not. Pt then stood up to doff underwear, & started threading underwear while standing. OT instructed pt to sit down while threading her legs, pt replied "okay" but continued threading her legs into the underwear without sitting down as instructed.) On/Off Footwear: 4 (SBA seated) Toileting Hygiene (QC): 4 (SBA, pt instructed to not to stand without staff present, OT waited out side the door. Pt stood up prior to telling OT she was standing up. ) Toilet Transfer (QC): 3 (Min A. Pt complete clothing management and hygiene, when she was pulling pants up, she had toilet paper stuck to her skin requiring assistance to remove it prior to pulling pants up the rest of the way. SBA during stand at [facility].) Other Treatment Pt laying in bed, transferred supine to sit EOB with SBA. Pt then stood up without warning, no shoes/socks on and walker not in front of her. OT asked pt where she was going and pt did not answer. OT instructed pt to sit back down on the bed and put her shoes on prior to transfer. Pt sat and put shoes on with SBA. OT again asked pt where she was going to go when she stood up, pt reported the bathroom. OT educated pt on safety and importance of having walker set up and non-slip surface on her feet prior to transfers, pt verbalized understanding.OT placed gait belt and walker in front of the pt, then pt transferred to toilet with SBA. Pt completed toileting, then went to her recliner to eat breakfast. Nurse present stating pt needs chair/bed alarms. Pt reports she needed to use the restroom again, attempting to stand prior to walker being placed in front of her, OT educated pt again on safe transfers. Pt then went to the bathroom to complete toileting. She then completed dressing seated at MA, using GBs during stand (see notes above). She stood up from MA before walker was placed requiring assistance from OT for placement, OT educated pt again on safe transfers. Pt then stood at sink to wash her hands and face, brush her teeth, and put her make up on. Pt returned to her recliner. OT educated pt on safety during ADLs again, importance of having staff present when up in her room, and importance of using her call light. She verbalized understanding. Post OT session, pt seated in recliner with chair alarm on, call light in reach and all needs met. Education OT Patient Education: Correct positioning, Energy conservation, Modified ADL techniques, Progress toward Goal/Update tx plan, Purpose of tx/functional activities Teaching Recipient: Patient Teaching Methods: Discussion Response to Teaching: Verbalize Understanding, Reinforcement Needed OT Short Term Goals Short Term Goals Upper body dressin Lower body dressin OT Care Home Goals Commercial Agent Goals Time Frame: Oct 31, 2019 Eating (QC): 6 Oral Hygiene (QC): 6 Toileting Hygiene (QC): 6 Shower/Bathe Self (QC): 6 Upper Body Dressing (QC): 6 Lower Body Dressing (QC): 6 On/Off Footwear (QC): 6 Additional Goals: 1-Demonstrate ADL Tasks, 2-Verbalize Understanding, 3- ImproveStrength/Danny 1=Demonstrate adherence to instructed precautions during ADL tasks. 2=Patient will verbalize/demonstrate understanding of assistive devices/modifications for ADL. 3=Patient will improve strength/tolerance for activity to enable patient to perform ADL's. OT Education/Plan Problem List/Assessment Assessment: Decreased Activ Tolerance, Decreased Safety Aware, Decreased UE S trength, Impaired I ADL's, Impaired Self-Care Skills Discharge Recommendations Plan/Recommendations: Continue POC Treatment Plan/Plan of Care Treatment,Training & Education: Yes Patient would benefit from OT for education, treatment and training to promote independence in ADL's, mobility, safety and/or upper extremity function for ADL's. Plan of Care: ADL Retraining, Caregiver Training, Concurrent Therapy, Functional Mobility, Group Exercise/Act as Ind, UE Funct Exercise/Act Treatment Duration: Oct 31, 2019 Frequency: At least 5 of 7 days/Wk (IRF) Estimated Hrs Per Day: 1.5 hours per day Agreement: Yes Rehab Potential: Good Time/GCodes Start Time: 08:00 Stop Time: 09:00 Total Time Billed (hr/min): 60 Billed Treatment Time 1, ADL 4 KAYLIN YIP OT Oct 19, 2019 09:32
[2019-10-19] MEDS: ATENOLOL 25 MG (TENORMIN) TAB PO SCH (09:36)
[2019-10-19 10:25] VITALS: BP 108/61
--- NOTE | 2019-10-19 11:14 | PM&R Progress Note ---
Subjective HPI/CC On Admission Date Seen by Provider: Oct 19, 2019 Time Seen by Provider: 11:00 Subjective/Events-last exam Sodium level 125 today and DC Dyazide yesterday and placed on fluid restriction of 800cc/day BM regular Patient feels better today I updated her on the low sodium level and will recheck tomorrow and perhaps increase fluid intake Labs reviewed from 2019 and it appears sodium level was 128 06/2019 and it has progressed since that time No pain is reported Checked meds and labs Conferred with RN Reviewed therapy notes Review of Systems General: Fatigue Neurological: Weakness Objective Exam Vital Signs Vital Signs Date Time Temp Pulse Resp B/P (MAP) Pulse Ox O2 Delivery O2 Flow Rate FiO2 10/19/19 09:29 68 85/59 (68) 10/19/19 06:57 36.6 18 98 Nasal Cannula 3.00 Capillary Refill : Less Than 3 Seconds General Appearance: No Apparent Distress, WD/WN, Chronically ill HEENT: PERRL/EOMI, Normal ENT Inspection, Pharynx Normal Neck: Full Range of Motion, Normal Inspection, Non Tender, Supple, Carotid Bruit Respiratory: Chest Non Tender, Lungs Clear, Normal Breath Sounds, No Accessory Muscle Use, No Respiratory Distress Cardiovascular: Regular Rate, Rhythm, No Edema, No Gallop, No JVD, No Murmur, Normal Peripheral Pulses Gastrointestinal: Normal Bowel Sounds, No Organomegaly, No Pulsatile Mass, Non Tender, Soft Back: Normal Inspection, No CVA Tenderness, No Vertebral Tenderness Extremity: Normal Capillary Refill, Normal Inspection, Normal Range of Motion, Non Tender, No Calf Tenderness, No Pedal Edema Neurologic/Psychiatric: Alert, Oriented x3, No Motor/Sensory Deficits, human resource officer II- XII Norm as Tested, Abnormal Gait, Depressed Affect, Motor Weakness (ge neralized) Skin: Normal Color, Warm/Dry Lymphatic: No Adenopathy Results/Procedures Lab Laboratory Tests 10/19/19 05:45 Patient resulted labs reviewed. FIM Transfers Therapy Code Descriptions/Definitions Functional [place] Measure: 0=Not Assessed/NA 4=Minimal Assistance 1=Total Assistance 5=Supervision or Setup 2=Maximal Assistance 6=Modified [place] 3=Moderate Assistance 7=Complete IndependenceSCALE: Activities may be completed with or without assistive devices. 4-Icfmuvbjev-joajixk completes the activity by him/herself with no assistance from a helper. 5-Set-up or Clean-up Assistance-helper sets up or cleans up; patient completes activity. [place] assists only prior to or following the activity. 4-Supervision or Touching Assistance-helper provides verbal cues and/or to uching/steadying and/or contact guard assistance as patient completes activity. Assistance may be provided throughout the activity or intermittently. 3-Partial/Moderate Assistance-helper does LESS THAN HALF the effort. [place] lifts, holds or supports trunk or limbs, but provides less than half the effort. 2-Substantial/Maximal Assistance-helper does MORE THAN HALF the effort. [place] lifts or holds trunk or limbs and provides more than half the effort. 4-Cclevrjhr-yyzshv does ALL the effort. Patient does none of the effort to complete the activity. Or, the assistance of 2 or more helpers is required for the patient to complete the activity. If activity was not attempted, code reason: 7-Patient Refused. 9-Not Applicable-not attempted and the patient did not perform the activity before the current illness, exacerbation or injury. 10-Not Attempted due to Environmental Limitations-(lack of equipment, weather restraints, etc.). 88-Not Attempted due to Medical Conditions or Safety Concerns. Roll Left to Right (QC): 4 Sit to Lying (QC): 4 Sit to Stand (QC): 4 (SBA with transfers.) Chair/Uwi-rw-Nxxfq Xfer(QC): 4 Car Transfer (QC): 4 Gait Training Does the Patient Walk?: Yes Distance: 200 ft x 2; 50 ft x 2 Walk 10 feet (QC): 4 Walk 50 ft with 2 Turns(QC): 3 Walk 150 ft (QC): 4 Walking 10ft/uneven surface-QC: 3 Gait Assistive Device: FWW Wheelchair Training Does the Pt Use a Wheelchair?: No Stair Training Stair Training: Handrails/: 2 handrails 1 Step (curb) (QC): 3 4 Steps (QC): 3 (CGA for safety and cues for sequencing. ) 12 Steps (QC): 88 Stairs: Pattern: Step to Balance Picking up an Object (QC): 88 ADL-Treatment Eating (QC): 6 (Pt ate breakfast without assistance.) Oral Hygiene (QC): 4 (SBA standing at sink) Shower/Bathe Self (QC): 4 (SBA during stand at [facility]. Pt able to wash all parts.) Upper Body Dressing (QC): 5 (set up ) Lower Body Dressing (QC): 4 (CGA during stand at [facility]. Pt required cues for safety during task. Pt started to put her pants on, required cue to change her underwear 1st. Pt replied she thought she had already, although she had not. Pt then stood up to doff underwear, & started threading underwear while standing. OT instructed pt to sit down while threading her legs, pt replied "okay" but continued threading her legs into the underwear without sitting down as instructed.) On/Off Footwear (QC): 4 (SBA seated) Toileting Hygiene (QC): 4 (SBA, pt instructed to not to stand without staff present, OT waited out side the door. Pt stood up prior to telling OT she was standing up. ) Toilet Transfer (QC): 3 (Min A. Pt complete clothing management and hygiene, when she was pulling pants up, she had toilet paper stuck to her skin requiring assistance to remove it prior to pulling pants up the rest of the way. SBA during stand at [facility].) Assessment/Plan Assessment and Plan Assess & Plan/Chief Complaint Assessment: Debility Weakness HTN HLP Hypothyroidism Restrictive lung disease Oxygen dependency Depression Hyponatremia Plan: IRF protocol Home meds Monitor for pain and falls DC Dyazide Fluid restriction (1) Debility (2) Fall (3) Restrictive lung disease (4) Oxygen dependent (5) Hypertension (6) Hypothyroidism (7) GERD (gastroesophageal reflux disease) PARADISE WEST DO Oct 19, 2019 11:14
--- NOTE | 2019-10-19 12:08 | Physical Therapy Daily Note ---
PT Daily Note-Current Subjective Pt sitting in recliner answering phone call from family upon arrival. Pt agrees to PT but is preoccupied with whether she will receive MRI tomorrow as ordered by Dr Spears last week. Pt continues to need reminders of fluid restriction, continually asking for drink. Pain Location: No Pain Reported Mental Status Patient Orientation: Person, Confused, Place Transfers SCALE: Activities may be completed with or without assistive devices. 1-Pxupdsnrvm-nurxdir completes the activity by him/herself with no assistance from a helper. 5-Set-up or Clean-up Assistance-helper sets up or cleans up; patient completes activity. [place] assists only prior to or following the activity. 4-Supervision or Touching Assistance-helper provides verbal cues and/or touching/steadying and/or contact guard assistance as patient completes activity. Assistance may be provided throughout the activity or intermittently. 3-Partial/Moderate Assistance-helper does LESS THAN HALF the effort. [place] lifts, holds or supports trunk or limbs, but provides less than half the effort. 2-Substantial/Maximal Assistance-helper does MORE THAN HALF the effort. [place] lifts or holds trunk or limbs and provides more than half the effort. 6-Dmfavljzc-ieuglc does ALL the effort. Patient does none of the effort to complete the activity. Or, the assistance of 2 or more helpers is required for the patient to complete the activity. If activity was not attempted, code reason: 7-Patient Refused. 9-Not Applicable-not attempted and the patient did not perform the activity before the current illness, exacerbation or injury. 10-Not Attempted due to Environmental Limitations-(lack of equipment, weather restraints, etc.). 88-Not Attempted due to Medical Conditions or Safety Concerns. Sit to Stand (QC): 5 Toilet Transfer (QC): 5 Weight Bearing Right Lower Extremity: Right Full Weight Bearing Left Lower Extremity: Left Full Weight Bearing Gait Training Does the Patient Walk?: Yes Distance: 150' x2 Walk 10 feet (QC): 4 Walk 50 ft with 2 Turns(QC): 4 Walk 150 ft (QC): 4 Gait Persons Needed: 1 Gait Assistive Device: FWW Pt needs reminders to continue to keep FWW close and use when ambulating. Wheelchair Training Does the Pt Use a Wheelchair?: No Exercises NuStep Minutes: 10 NuStep Workload: 4 Treatments Pt transfers from recliner after phone call with family. Pt uses restroom. Pt then ambulates in hallway. Pt uses NuStep for 10m at WL 4. Pt returns to room to rest in recliner at end of Rx. Pt has all needs met, call light in hand. Assessment Current Status: Fair Progress Pt demonstrates more confusion during Rx today. Pt needs redirection to stay on task. Pt also needs VC for safety for using FWW appropriately. PT Short Term Goals Short Term Goals Time Frame: Oct 22, 2019 Sit to lyin Lying to sitting on side of be: 5 Walk 150 feet: 5 PT Wringer Operator Goals Wringer Operator Goals PT Wringer Operator Goals Time Frame: Oct 31, 2019 Roll Left & Right (QC): 6 Sit to Lying (QC): 6 Lying-Sitting on Side/Bed(QC): 6 Sit to Stand (QC): 6 Chair/Clr-yq-Rzquh Xfer(QC): 6 Toilet Transfer (QC): 6 Car Transfer (QC): 6 Does the Patient Walk: Yes Walk 10 feet (QC): 6 Walk 50ft with 2 Turns (QC): 6 Walk 150 ft (QC): 6 Walking 10ft on Uneven Surface: 5 1 Step (curb) (QC): 6 4 Steps (QC): 5 12 Steps (QC): 9 Picking up an Object (QC): 4 Does the Pt use WC or Scooter?: No PT Plan Problem List Problem List: Activity Tolerance, Functional Strength, Safety Treatment/Plan Treatment Plan: Continue Plan of Care Treatment Plan: Bed Mobility, Education, Functional Activity Danny, Functional Strength, Group Therapy, Gait, Safety, Therapeutic Exercise, Transfers Treatment Duration: Oct 31, 2019 Frequency: At least 5 of 7 days/Wk (IRF) Estimated Hrs Per Day: 1.5 hours per day Patient and/or Family Agrees t: Yes Safety Risks/Education Patient Education: Gait Training, Transfer Techniques, Correct Positioning, Safety Issues Teaching Recipient: Patient Teaching Methods: Discussion Response to Teaching: Reinforcement Needed Time/GCodes Time In: 1000 Time Out: 1100 Total Billed Treatment Time: 60 Total Billed Treatment 1, FA x2 (30m), GT (15m) & EX (15m) KAMI MONTEZ OPTOMETRIC TECHNICIAN Oct 19, 2019 12:08
--- NOTE | 2019-10-19 14:37 | Therapy Group Daily Note ---
Therapy Daily Group Note Patient Education Topic Other List Below (social distancing) Exercises LE Seated Exercise, UE Exercise Session Ratio (pt:therapist): 4:1 Goal of Session: Memory Strategies, Other (list) (social distancing) Goal Met for this Session: Yes Pt Benefit of Group: Contributions to Others, Increased Functional Strength, Improved Cognition, Recognition of Peers, Socialization Other/Notes Pt ambulated to [facility] for OT/PT group. Group consisted of introductions (name, place living, historical memory), socialization, UE/LE seated exercises and educational topic over social distancing. Pt introduced self appropriately and actively listened to peers. Pt able to lead one exercise and complete other exercises, 1 set 10 reps. Pt acknowledged understanding of educational topic by verbalizing own strategies and opinion. After therapy, pt lying in bed with call light/phone in reach. All needs met. Start Time: 13:00 Stop Time: 14:10 Total Billed Treatment Time: 70 Total Billed Treatment 1-GRP YOUNG CELAYA Oct 19, 2019 14:37
--- NOTE | 2019-10-19 16:05 | NUR ---
Pt's dgtr in law, Tanika called to floor earlier, & spoke w SLOOP CAPTAIN, Erica, asked if pt was still going to have the MRI of her brain that Dr. Spears had ordered for tomorrow at 3:00, Notified Dr. Palacio of this, she said it was fine w her, but, to check w Dr. Spears, Notified Dr. Spears, & she did state that she still wanted pt to have the MRI of brain, w & w/o contrast as previously ordered. Addendum: 10/19/19 at 1609 by CATALINA LONGORIA RN kerwin Vallecillo in MRI
[2019-10-19 18:00] VITALS: BP 117/79
[2019-10-19] MEDS: MELATONIN 3 MG TABLET PO PRN (21:48)
[2019-10-20 06:00] VITALS: BP 133/74
[2019-10-20 06:30] LABS: CALCIUM 8.3 MG/DL (8.5-10.1); CREATININE SERUM 0.91 MG/DL (0.60-1.30); POTASSIUM 4.2 MMOL/L (3.6-5.0)
[2019-10-20] MEDS: VITAMIN D3 25 MCG (1,000 UNITS) TABLET PO SCH (06:44)
[2019-10-20] MEDS: MULTIVIT W/MINERALS TAB (THERAGRAN M) PO SCH (06:44)
[2019-10-20] MEDS: LEVOTHYROXINE 50 MCG (LEVOTHROID) TAB PO SCH (06:44)
[2019-10-20 06:59] LABS: BASOPHILS % (AUTO) 0 % (0-10); EOSINOPHILS % (AUTO) 3 % (0-10); HEMATOCRIT 29 % (35-52); HEMOGLOBIN 10.3 G/DL (11.5-16.0); LYMPHOCYTES # (AUTO) 0.4 X 10^3 (1.0-4.0); LYMPHOCYTES % (AUTO) 26 % (12-44); MEAN CORPUSCULAR HEMOGLOBIN 32 PG (25-34); MEAN CORPUSCULAR HGB CONC 36 G/DL (32-36); MEAN CORPUSCULAR VOLUME 89 FL (80-99); MEAN PLATELET VOLUME 12.2 FL (7.4-10.4); MONOCYTES # (AUTO) 0.2 X 10^3 (0.0-1.0); MONOCYTES % (AUTO) 16 % (0-12); NEUTROPHILS # (AUTO) 0.9 X 10^3 (1.8-7.8); NEUTROPHILS % (AUTO) 56 % (42-75); PLATELET COUNT 96 10^3/uL (130-400); RED CELL DISTRIBUTION WIDTH 12.9 % (10.0-14.5); WHITE BLOOD COUNT 1.5 10^3/uL (4.3-11.0)
[2019-10-20 07:02] LABS: SMEAR SCAN COMMENT 0
[2019-10-20 08:01] LABS: BASOPHILS % (AUTO) 0 % (0-10); EOSINOPHILS % (AUTO) 3 % (0-10); HEMATOCRIT 29 % (35-52); HEMOGLOBIN 10.3 G/DL (11.5-16.0); LYMPHOCYTES # (AUTO) 0.4 X 10^3 (1.0-4.0); LYMPHOCYTES % (AUTO) 26 % (12-44); MEAN CORPUSCULAR HEMOGLOBIN 32 PG (25-34); MEAN CORPUSCULAR HGB CONC 36 G/DL (32-36); MEAN CORPUSCULAR VOLUME 89 FL (80-99); MEAN PLATELET VOLUME 12.2 FL (7.4-10.4); MONOCYTES # (AUTO) 0.2 X 10^3 (0.0-1.0); MONOCYTES % (AUTO) 16 % (0-12); NEUTROPHILS # (AUTO) 0.9 X 10^3 (1.8-7.8); NEUTROPHILS % (AUTO) 56 % (42-75); PLATELET COUNT 96 10^3/uL (130-400); RED CELL DISTRIBUTION WIDTH 12.9 % (10.0-14.5); WHITE BLOOD COUNT 1.5 10^3/uL (4.3-11.0)
[2019-10-20 08:04] LABS: ABSOLUTE RETIC # 29 10e9/L (24-90); RETICULOCYTE % 0.87 % (0.50-2.40)
[2019-10-20 08:13] LABS: ALBUMIN 2.8 GM/DL (3.2-4.5); BILIRUBIN,DIRECT 0.3 MG/DL (0.0-0.3); BILIRUBIN,INDIRECT 0.2 MG/DL; BILIRUBIN,TOTAL 0.5 MG/DL (0.1-1.0)
[2019-10-20] MEDS: ACETAMINOPHEN 500 MG TAB (TYLENOL) PO SCH ×2 (08:23→20:59)
[2019-10-20] MEDS: PANTOPRAZOLE 20 MG TABLET (PROTONIX) PO SCH (08:23)
[2019-10-20] MEDS: SODIUM CHLORIDE 1 GM TABLET PO SCH ×2 (08:23→20:59)
[2019-10-20] MEDS: DOCUSATE SODIUM 100 MG (COLACE) CAP PO SCH ×2 (08:24→20:58)
[2019-10-20] MEDS: DULoxetine 20 MG (CYMBALTA) CAP PO SCH (08:24)
[2019-10-20] MEDS: SENNA W/DOCUSATE (SENOKOT S) TABLET PO SCH ×2 (08:24→20:59)
[2019-10-20] MEDS: polyethylene glycoL POWDER 17 GM (MIRALAX) PACK PO SCH ×2 (08:24→20:58)
[2019-10-20] MEDS: DICLOFENAC 1% GEL 100 GM (VOLTAREN) TUBE TOP SCH ×4 (08:26→21:00)
[2019-10-20 08:58] LABS: ANISOCYTOSIS SLIGHT; ELLIPT/OVALOCYTES SLIGHT; EOSINOPHILS % (MANUAL) 1 %; LYMPHOCYTES % (MANUAL) 22 %; MONOCYTES % (MANUAL) 9 %; NEUTROPHILS % (MANUAL) 68 %
--- NOTE | 2019-10-20 08:58 | Occupational Ther Daily Note ---
OT Current Status-Daily Note Subjective Pt laying in bed at start of session, agreeable to OT tx with focus on ADLs. Pain Numeric Pain Scale: 0-No Pain ADL-Treatment Therapy Code Descriptions/Definitions Functional [place] Measure: 0=Not Assessed/NA 4=Minimal Assistance 1=Total Assistance 5=Supervision or Setup 2=Maximal Assistance 6=Modified [place] 3=Moderate Assistance 7=Complete IndependenceSCALE: Activities may be completed with or without assistive devices. 1-Kxkdxypxdq-mvenxrh completes the activity by him/herself with no assistance from a helper. 5-Set-up or Clean-up Assistance-helper sets up or cleans up; patient completes activity. [place] assists only prior to or following the activity. 4-Supervision or Touching Assistance-helper provides verbal cues and/or touching/steadying and/or contact guard assistance as patient completes activity. Assistance may be provided throughout the activity or intermittently. 3-Partial/Moderate Assistance-helper does LESS THAN HALF the effort. [place] lifts, holds or supports trunk or limbs, but provides less than half the effort. 2-Substantial/Maximal Assistance-helper does MORE THAN HALF the effort. [place] lifts or holds trunk or limbs and provides more than half the effort. 7-Oklkqaeza-eytyiw does ALL the effort. Patient does none of the effort to complete the activity. Or, the assistance of 2 or more helpers is required for the patient to complete the activity. If activity was not attempted, code reason: 7-Patient Refused. 9-Not Applicable-not attempted and the patient did not perform the activity bef ore the current illness, exacerbation or injury. 10-Not Attempted due to Environmental Limitations-(lack of equipment, weather r estraints, etc.). 88-Not Attempted due to Medical Conditions or Safety Concerns. Eating (QC): 6 Oral Hygiene (QC): 6 (standing at sink with FWW) Shower/Bathe Self (QC): 5 (set up, pt able to wash all parts) Upper Body Dressing (QC): 5 (set up ) Lower Body Dressing (QC): 5 (set up) On/Off Footwear: 5 (set up) Toileting Hygiene (QC): 6 (Mod I ) Toilet Transfer (QC): 6 (Mod I ) Other Treatment Pt laying in bed, transferred supine to sit EOB mod I. She put on her shoes and waited for walker to be placed in front of her before standing. She then went to the bathroom to complete toileting, oral hygiene, showering, dressing, and putting makeup on/brushing hair at sink. She returned to her recliner. Post OT session, pt seated in recliner, call light in reach and all needs met, chair alarm on. Education OT Patient Education: Correct positioning, Energy conservation, Modified ADL techniques, Progress toward Goal/Update tx plan, Purpose of tx/functional activities, Safety issues Teaching Recipient: Patient Teaching Methods: Discussion Response to Teaching: Verbalize Understanding OT Short Term Goals Short Term Goals Upper body dressin Lower body dressin OT Oleomargarine Maker Goals Oleomargarine Maker Goals Time Frame: Oct 31, 2019 Eating (QC): 6 (met) Oral Hygiene (QC): 6 (met) Toileting Hygiene (QC): 6 (me) Shower/Bathe Self (QC): 6 Upper Body Dressing (QC): 6 Lower Body Dressing (QC): 6 On/Off Footwear (QC): 6 Additional Goals: 1-Demonstrate ADL Tasks, 2-Verbalize Understanding, 3- ImproveStrength/Danny 1=Demonstrate adherence to instructed precautions during ADL tasks. 2=Patient will verbalize/demonstrate understanding of assistive devices/modifications for ADL. 3=Patient will improve strength/tolerance for activity to enable patient to perform ADL's. OT Education/Plan Problem List/Assessment Assessment: Decreased Activ Tolerance, Decreased UE Strength, Impaired I ADL's Discharge Recommendations Plan/Recommendations: Continue POC Treatment Plan/Plan of Care Patient would benefit from OT for education, treatment and training to promote independence in ADL's, mobility, safety and/or upper extremity function for ADL's. Plan of Care: ADL Retraining, Caregiver Training, Concurrent Therapy, Functional Mobility, Group Exercise/Act as Ind, UE Funct Exercise/Act Treatment Duration: Oct 31, 2019 Frequency: At least 5 of 7 days/Wk (IRF) Estimated Hrs Per Day: 1.5 hours per day Agreement: Yes Rehab Potential: Good Time/GCodes Start Time: 08:00 Stop Time: 09:00 Total Time Billed (hr/min): 60 Billed Treatment Time 1, ADL 4 KAYLIN YIP OT Oct 20, 2019 08:58
--- NOTE | 2019-10-20 10:38 | NUR ---
[facility].
[2019-10-20] MEDS ORDERED: GADOBUTROL 10 MMOL/10 ML (GADAVIST) VIAL IV ONE (11:00)
[2019-10-20] MEDS: ENOXAPARIN 40 MG/0.4 ML (LOVENOX) SYR SC SCH (11:19)
--- NOTE | 2019-10-20 12:03 | NUR ---
PER DR. SAWYER, INCREASE WATER RESTRICTION TO 1000 ML/DAY AND PATIENT MAY HAVE MUCH GATORADE SHE WANTS.
--- NOTE | 2019-10-20 12:10 | Diagnostic Imaging Report ---
INDICATION: Wheezing. Time of exam 11:17 AM Comparison is made with prior chest from 06/16/2018. Heart size stable. Patient appears to have a large hiatal hernia. The lungs appear to be clear. No infiltrates are seen. There is no effusion or pneumothorax. IMPRESSION: No acute cardiopulmonary process is detected. Dictated by: Dictated on workstation # [id number]
--- NOTE | 2019-10-20 12:10 | Diagnostic Imaging Report ---
PROCEDURE: MR imaging of the brain with and without contrast. TECHNIQUE: Multiplanar, multisequence MR imaging of the brain was performed with and without contrast. INDICATION: Confusion and gait abnormality. COMPARISON: No prior MRI brain studies are available for comparison. FINDINGS: Ventricles and sulci are prominent consistent with the patient's age. There is periventricular and subcortical white matter signal abnormalities noted, consistent with senescent change. No diffusion restriction is identified to suggest acute ischemia. The normal expected flow-voids within the carotid siphons are seen. No acute intra-axial or extra-axial hemorrhage is detected. No abnormal enhancement following contrast administration is seen. Corpus callosum is unremarkable. Sella and parasellar structures are unremarkable. IMPRESSION: Chronic and senescent changes. No acute intracranial process is detected. Dictated by: Dictated on workstation # [id number]
--- NOTE | 2019-10-20 12:56 | PM&R Progress Note ---
Subjective HPI/CC On Admission Date Seen by Provider: Oct 20, 2019 Time Seen by Provider: 09:00 Subjective/Events-last exam Sodium level dropped today and pancytopenia suspicious for hematological process so consulted Dr Clyde GODWIN regular Patient feels better today PCP updated patient and family at my request DC planned for tomorrow and family and patient insistent No pain is reported Checked meds and labs Conferred with RN Reviewed therapy notes Review of Systems Neurological: Weakness Objective Exam Vital Signs Vital Signs Date Time Temp Pulse Resp B/P (MAP) Pulse Ox O2 Delivery O2 Flow Rate FiO2 10/21/19 05:12 36.0 76 14 115/69 (84) 98 Room Air 10/20/19 20:40 3.00 Capillary Refill : Less Than 3 Seconds General Appearance: No Apparent Distress, WD/WN, Chronically ill HEENT: PERRL/EOMI, Normal ENT Inspection, Pharynx Normal Neck: Full Range of Motion, Normal Inspection, Non Tender, Supple, Carotid Bruit Respiratory: Chest Non Tender, Lungs Clear, Normal Breath Sounds, No Accessory Muscle Use, No Respiratory Distress Cardiovascular: Regular Rate, Rhythm, No Edema, No Gallop, No JVD, No Murmur, Normal Peripheral Pulses Gastrointestinal: Normal Bowel Sounds, No Organomegaly, No Pulsatile Mass, Non Tender, Soft Back: Normal Inspection, No CVA Tenderness, No Vertebral Tenderness Extremity: Normal Capillary Refill, Normal Inspection, Normal Range of Motion, Non Tender, No Calf Tenderness, No Pedal Edema Neurologic/Psychiatric: Alert, Oriented x3, No Motor/Sensory Deficits, watchmaker apprentice II- XII Norm as Tested, Abnormal Gait, Depressed Affect, Motor Weakness (generalized) Skin: Normal Color, Warm/Dry Lymphatic: No Adenopathy Results/Procedures Lab Laboratory Tests 10/21/19 05:55 Patient resulted labs reviewed. FIM Transfers Therapy Code Descriptions/Definitions Functional [place] Measure: 0=Not Assessed/NA 4=Minimal Assistance 1=Total Assistance 5=Supervision or Setup 2=Maximal Assistance 6=Modified [place] 3=Moderate Assistance 7=Complete IndependenceSCALE: Activities may be completed with or without assistive devices. 4-Otjgqrvaia-phzkuqw completes the activity by him/herself with no assistance from a helper. 5-Set-up or Clean-up Assistance-helper sets up or cleans up; patient completes activity. [place] assists only prior to or following the activity. 4-Supervision or Touching Assistance-helper provides verbal cues and/or touching/steadying and/or contact guard assistance as patient completes activity. Assistance may be provided throughout the activity or intermittently. 3-Partial/Moderate Assistance-helper does LESS THAN HALF the effort. [place] l ifts, holds or supports trunk or limbs, but provides less than half the effort. 2-Substantial/Maximal Assistance-helper does MORE THAN HALF the effort. [place] lifts or holds trunk or limbs and provides more than half the effort. 0-Hmuqiiejb-gbmvlf does ALL the effort. Patient does none of the effort to complete the activity. Or, the assistance of 2 or more helpers is required for the patient to complete the activity. If activity was not attempted, code reason: 7-Patient Refused. 9-Not Applicable-not attempted and the patient did not perform the activity before the current illness, exacerbation or injury. 10-Not Attempted due to Environmental Limitations-(lack of equipment, weather restraints, etc.). 88-Not Attempted due to Medical Conditions or Safety Concerns. Roll Left to Right (QC): 4 Sit to Lying (QC): 4 Sit to Stand (QC): 5 Chair/Ggz-fz-Ozhcw Xfer(QC): 4 Car Transfer (QC): 4 Gait Training Does the Patient Walk?: Yes Distance: 150' x2 Walk 10 feet (QC): 4 Walk 50 ft with 2 Turns(QC): 4 Walk 150 ft (QC): 4 Walking 10ft/uneven surface-QC: 3 Gait Persons Needed: 1 Gait Assistive Device: FWW Wheelchair Training Does the Pt Use a Wheelchair?: No Stair Training Stair Training: Handrails/: 2 handrails 1 Step (curb) (QC): 3 4 Steps (QC): 3 (CGA for safety and cues for sequencing. ) 12 Steps (QC): 88 Stairs: Pattern: Step to Balance Picking up an Object (QC): 88 ADL-Treatment Eating (QC): 6 Oral Hygiene (QC): 6 (standing at sink with FWW) Shower/Bathe Self (QC): 5 (set up, pt able to wash all parts) Upper Body Dressing (QC): 5 (set up ) Lower Body Dressing (QC): 5 (set up) On/Off Footwear (QC): 5 (set up) Toileting Hygiene (QC): 6 (Mod I ) Toilet Transfer (QC): 6 (Mod I ) Assessment/Plan Assessment and Plan Assess & Plan/Chief Complaint Assessment: Debility Weakness HTN HLP Hypothyroidism Restrictive lung disease Oxygen dependency Depression Hyponatremia Pancytopenia Plan: IRF protocol Home meds Monitor for pain and falls DC Dyaz[place] Fluid restriction Consult Hematology (1) Debility (2) Fall (3) Restrictive lung disease (4) Oxygen dependent (5) Hypertension (6) Hypothyroidism (7) GERD (gastroesophageal reflux disease) PARADISE WEST DO Oct 20, 2019 12:56
--- NOTE | 2019-10-20 12:58 | Physical Therapy Daily Note ---
PT Daily Note-Current Subjective Pt sitting in recliner upon arrival. Pt agrees to PT. Pain Location: No Pain Reported Mental Status Patient Orientation: Person, Confused, Place Transfers SCALE: Activities may be completed with or without assistive devices. 7-Qrsjzwexrn-yomolfa completes the activity by him/herself with no assistance from a helper. 5-Set-up or Clean-up Assistance-helper sets up or cleans up; patient completes activity. [place] assists only prior to or following the activity. 4-Supervision or Touching Assistance-helper provides verbal cues and/or touching/steadying and/or contact guard assistance as patient completes activity. Assistance may be provided throughout the activity or intermittently. 3-Partial/Moderate Assistance-helper does LESS THAN HALF the effort. [place] lifts, holds or supports trunk or limbs, but provides less than half the effort. 2-Substantial/Maximal Assistance-helper does MORE THAN HALF the effort. [place] lifts or holds trunk or limbs and provides more than half the effort. 8-Rvmsaimje-ygtllg does ALL the effort. Patient does none of the effort to complete the activity. Or, the assistance of 2 or more helpers is required for the patient to complete the activity. If activity was not attempted, code reason: 7-Patient Refused. 9-Not Applicable-not attempted and the patient did not perform the activity before the current illness, exacerbation or injury. 10-Not Attempted due to Environmental Limitations-(lack of equipment, weather restraints, etc.). 88-Not Attempted due to Medical Conditions or Safety Concerns. Sit to Stand (QC): 4 Toilet Transfer (QC): 4 Weight Bearing Right Lower Extremity: Right Full Weight Bearing Left Lower Extremity: Left Full Weight Bearing Gait Training Does the Patient Walk?: Yes Distance: 150' x2 Walk 10 feet (QC): 4 Walk 50 ft with 2 Turns(QC): 4 Walk 150 ft (QC): 4 Gait Persons Needed: 1 Gait Assistive Device: FWW Pt walks with slow tiffani. Wheelchair Training Does the Pt Use a Wheelchair?: No Exercises Seated Therapy Exercises: Ankle pumps, Long arc quads, Hip flexion, Kicking activity, Hip abd/add, Glut set Seated Reps: 15 NuStep Minutes: 15 NuStep Workload: 4 Treatments Pt transfers to standing and uses restroom before leaving room. Pt ambulates in hallway then uses NuStep for 15m at WL 4. Pt completes Seated EX before returning to room to rest in bed. Pt has all needs met, call light in hand. Assessment Current Status: Fair Progress Pt fatigues easily and asks for frequent RB. PT Short Term Goals Short Term Goals Time Frame: Oct 22, 2019 Sit to lyin Lying to sitting on side of be: 5 Walk 150 feet: 5 PT Manhole Stripper Goals Mcfp Goals PT Manhole Stripper Goals Time Frame: Oct 31, 2019 Roll Left & Right (QC): 6 Sit to Lying (QC): 6 Lying-Sitting on Side/Bed(QC): 6 Sit to Stand (QC): 6 Chair/Enc-ev-Xmueh Xfer(QC): 6 Toilet Transfer (QC): 6 Car Transfer (QC): 6 Does the Patient Walk: Yes Walk 10 feet (QC): 6 Walk 50ft with 2 Turns (QC): 6 Walk 150 ft (QC): 6 Walking 10ft on Uneven Surface: 5 1 Step (curb) (QC): 6 4 Steps (QC): 5 12 Steps (QC): 9 Picking up an Object (QC): 4 Does the Pt use WC or Scooter?: No PT Plan Problem List Problem List: Activity Tolerance, Functional Strength, Safety, Gait, Transfer Treatment/Plan Treatment Plan: Continue Plan of Care Treatment Plan: Bed Mobility, Education, Functional Activity Danny, Functional Strength, Group Therapy, Gait, Safety, Therapeutic Exercise, Transfers Treatment Duration: Oct 31, 2019 Frequency: At least 5 of 7 days/Wk (IRF) Estimated Hrs Per Day: 1.5 hours per day Patient and/or Family Agrees t: Yes Safety Risks/Education Patient Education: Gait Training, Transfer Techniques, Correct Positioning, Safety Issues Teaching Recipient: Patient Teaching Methods: Discussion Response to Teaching: Reinforcement Needed Time/GCodes Time In: 900 Time Out: 1000 Total Billed Treatment Time: 60 Total Billed Treatment 1, GT (15m), FA (15m) & EX x2 (30m) KAMI MONTEZ ELECTRIC MELT OPERATOR Oct 20, 2019 12:58
--- NOTE | 2019-10-20 14:45 | NUR ---
MRI AND CHEST XRAY RESULTS FAXED TO DR. SAWYER'S OFFICE WITH CONFIRMATION. BULK FILLER NOTIFIED.
--- NOTE | 2019-10-20 15:32 | Physical Therapy Daily Note ---
PT Daily Note-Current Subjective Pt laying Supine in bed asleep upon arrival. Pt agrees to PT but reports fatigue from not sleeping well last night. Pain Location: No Pain Reported Mental Status Patient Orientation: Person, Confused, Place Transfers SCALE: Activities may be completed with or without assistive devices. 5-Qcudarnkez-qkyalsb completes the activity by him/herself with no assistance from a helper. 5-Set-up or Clean-up Assistance-helper sets up or cleans up; patient completes activity. [place] assists only prior to or following the activity. 4-Supervision or Touching Assistance-helper provides verbal cues and/or touching/steadying and/or contact guard assistance as patient completes activity. Assistance may be provided throughout the activity or intermittently. 3-Partial/Moderate Assistance-helper does LESS THAN HALF the effort. [place] lif ts, holds or supports trunk or limbs, but provides less than half the effort. 2-Substantial/Maximal Assistance-helper does MORE THAN HALF the effort. [place] lifts or holds trunk or limbs and provides more than half the effort. 1-Ekvrgvjhc-cozrzb does ALL the effort. Patient does none of the effort to complete the activity. Or, the assistance of 2 or more helpers is required for the patient to complete the activity. If activity was not attempted, code reason: 7-Patient Refused. 9-Not Applicable-not attempted and the patient did not perform the activity before the current illness, exacerbation or injury. 10-Not Attempted due to Environmental Limitations-(lack of equipment, weather restraints, etc.). 88-Not Attempted due to Medical Conditions or Safety Concerns. Roll Left & Right (QC): 6 Sit to Lying (QC): 6 Lying to Sitting/Side of Bed(Q: 6 Sit to Stand (QC): 5 Chair/Yue-wq-Eyfsq Xfer(QC): 5 Toilet Transfer (QC): 5 Car Transfer (QC): 5 VC for safety on standing transfers. Pt tries to leave FWW behind. Weight Bearing Right Lower Extremity: Right Full Weight Bearing Left Lower Extremity: Left Full Weight Bearing Gait Training Does the Patient Walk?: Yes Distance: 150' Walk 10 feet (QC): 5 Walk 50 ft with 2 Turns(QC): 5 Walk 150 ft (QC): 5 Walking 10ft/uneven surface-QC: 5 Gait Persons Needed: 1 Gait Assistive Device: FWW Pt needs VC for safety on keeping FWW close to self and not leaving it to side when short distance walking. Wheelchair Training Does the Pt Use a Wheelchair?: No Stair Training Stair Training: Handrails/: 2 handrails #of Steps: 8 1 Step (curb) (QC): 5 4 Steps (QC): 5 12 Steps (QC): 9 Stairs: Pattern: Step to Balance Picking up an Object (QC): 88 Special Test Comments This is not safe to test at this time & pt has scrap breaker that will be used at home. Exercises Supine Ex: Ankle pumps, Quad Set, Heel Slides, Hip abd/add Supine Reps: 15 Seated Therapy Exercises: Ankle pumps, Long arc quads, Hip flexion, Kicking activity, Hip abd/add Seated Reps: 15 Treatments Pt completes limited Supine EX in bed. Pt transfers from bed to standing, uses restroom. Pt ambulates in hallway, completes car transfer and walking across varying surface. Pt returns to recliner to rest at end of Rx. Pt has all needs met, call light in hand. 2nd Rx: Pt transfers to standing and ambulates in hallway. Pt completes 2 sets of 4 steps. Pt takes short RB, completes Seated EX then ambulates back to room. Pt uses restroom then returns to Supine in bed at end of Rx with all needs met, call light in hand. Assessment Current Status: Fair Progress Pt continues to demonstrate deficits with safety, not using FWW with transfers and ambulation. PT Short Term Goals Short Term Goals Time Frame: Oct 22, 2019 Sit to lyin Lying to sitting on side of be: 5 Walk 150 feet: 5 PT Jail Goals Jail Goals PT Insurance Collector Goals Time Frame: Oct 31, 2019 Roll Left & Right (QC): 6 Sit to Lying (QC): 6 Lying-Sitting on Side/Bed(QC): 6 Sit to Stand (QC): 6 Chair/Mww-ke-Dxebt Xfer(QC): 6 Toilet Transfer (QC): 6 Car Transfer (QC): 6 Does the Patient Walk: Yes Walk 10 feet (QC): 6 Walk 50ft with 2 Turns (QC): 6 Walk 150 ft (QC): 6 Walking 10ft on Uneven Surface: 5 1 Step (curb) (QC): 6 4 Steps (QC): 5 12 Steps (QC): 9 Picking up an Object (QC): 4 Does the Pt use WC or Scooter?: No PT Plan Problem List Problem List: Activity Tolerance, Safety Treatment/Plan Treatment Plan: Continue Plan of Care Treatment Plan: Bed Mobility, Education, Functional Activity Danny, Functional Strength, Group Therapy, Gait, Safety, Therapeutic Exercise, Transfers Treatment Duration: Oct 31, 2019 Frequency: At least 5 of 7 days/Wk (IRF) Estimated Hrs Per Day: 1.5 hours per day Patient and/or Family Agrees t: Yes Safety Risks/Education Patient Education: Gait Training, Transfer Techniques, Steps, Correct Positioning, Safety Issues Teaching Recipient: Patient Teaching Methods: Discussion Response to Teaching: Reinforcement Needed Time/GCodes Time In: 1330 Time Out: 1400 Total Billed Treatment Time: 30 Total Billed Treatment 1, GT (15m) & FA (15m) 1,FA x2 (30m) KAMI MONTEZ PTA Oct 20, 2019 15:32
--- NOTE | 2019-10-20 17:16 | NUR ---
DR. CROWDER HERE TO SEE THE PATIENT. ORDERS TO F/U WITH HER AT THE [facility] IN 1 WEEK.
--- NOTE | 2019-10-20 17:35 | Oncology Consultation ---
Visit Information Visit Information Date of Admission Oct 17, 2019 at 10:09 Attending Physician Val Palacio DO Admitting Physician Maritza Spears MD Chief Complaint Called to see patient for pancytopenia Interval History Ms. Salinas is a 79 year old white female who was admitted 10/17/2019 to in-pt rehab for general weakness and risk of fall. On 10/18/2019, her WBC 2, Hb 11, Plt 96, ANC 1.1. She was put on Lovenox SQ since the admission. She is making good progression in her overall strength and she is able to go to bathroom with a walk. However, her CBC on 10/20/19 showed WBC 1.5, Hb 10.3 and Plt 96k, ANC 0.9. No fever, no pain, no SOB. Her MRI of the head and CXR were all negative. The only complaint from the patient when I saw her this afternoon was "I want to go home tomorrow. I am doing fine." She has a son who lives with her at home. Pt had normal CBC 03/30/2018. On 07/05/2019 WBC 3.8, Hb 11.6, Plt 146k. I consulted the patient on: 10/20/19 17:25 Time Seen by Provider: 18:02 Review of Systems Constitutional: no symptoms reported Respiratory: no symptoms reported Cardiovascular: no symptoms reported Gastrointestinal: no symptoms reported Musculoskeletal: no symptoms reported Health Status Allergies Coded Allergies: No Known Drug Allergies (Unverified , 12/22/12) Home Medications Acetaminophen (Tylenol Extra Strength) 500 Mg Tablet, 1,000 MG PO BID, (Reported) Alprazolam (Alprazolam) 0.5 Mg Tablet, 0.5 MG PO HS PRN for SLEEP, (Reported) Atenolol (Atenolol) 25 Mg Tablet, 25 MG PO DAILY, (Reported) Cholecalciferol (Vitamin D3) (Vitamin D3) 25 Mcg Capsule, 25 MCG PO DAILY, (Reported) Diclofenac Sodium (Diclofenac Sodium) 100 Gm Gel..gram., 2 GM TD QID, (Reported) APPLY TO LEFT WRIST, BOTH SHOULDERS AND UPPER NECK Duloxetine HCl (Duloxetine HCl) 20 Mg Capsule.dr, 20 MG PO DAILY, (Reported) Levothyroxine Sodium (Levothyroxine Sodium) 50 Mcg Tablet, 50 MCG PO DAILY, (Reported) Multivitamin (Multivitamins) 1 Each Tablet, 1 EACH PO DAILY, (Reported) Omeprazole (Omeprazole) 20 Mg Capsule.dr, 20 MG PO DAILY, (Reported) Triamterene/Hydrochlorothiazid (Triamterene-Hctz 37.5-25 mg Tb) 1 Each Tablet, 1 EA PO DAILY, (Reported) KFX-Vaejhj-Eomoxk Hx Patient Social History Marrital Status: single Employed/Student: retired Alcohol Use: Denies Use Recreational Drug Use: No Smoking Status: Never a Smoker Recent Foreign Travel: No Contact w/other who traveled: No Recent Infectious Disease Expo: No Recent Hopitalizations: No Physical Abuse Screen: No Sexual Abuse: No Immunizations Up To Date Date of Pneumonia Vaccine: Apr 03, 2011 Date of Influenza Vaccine: May 18, 2019 Family Medical History Family History: Arthritis 19 FATHER 19 MOTHER Cancer of mouth G8 SISTER Cardiovascular disease 19 MOTHER G8 BROTHER G8 SISTER G8 SISTER G8 SISTER Hypertension 19 FATHER 19 MOTHER Myocardial infarction 19 MOTHER G8 BROTHER G8 SISTER G8 SISTER Physical Exam Vital Signs Vital Signs - First Documented 10/17/19 10/17/19 10:35 21:00 Temp 36.1 Pulse 70 Resp 18 B/P (MAP) 114/66 Pulse Ox 97 O2 Delivery Room Air O2 Flow Rate 3.00 Capillary Refill : Less Than 3 Seconds Height, Weight, BMI Height: 5'4.00" Weight: 227lbs. 0.0oz. 102.798838ou; 33.85 BMI Method:Stated General Appearance: No Apparent Distress HEENT: PERRL/EOMI Respiratory: No Accessory Muscle Use, No Respiratory Distress Gastrointestinal: Non Tender, Soft Extremity: Non Tender, No Calf Tenderness, No Pedal Edema Neurologic/Psychiatric: Alert, Oriented x3 Data Review Labs Laboratory Tests 10/20/19 05:50 Laboratory Tests 10/18/19 05:35: White Blood Count 2.0L, Red Blood Count 3.51L, Hemoglobin 11.0L, Hematocrit 32L, Platelet Count 104L, Mean Platelet Volume 12.0H, Neutrophils # (Auto) 1.1L, Lymphocytes # (Auto) 0.7L, Sodium Level 124*L, Chloride Level 96L, Carbon Dioxid e Level 19L, Blood Urea Nitrogen 21H, Aspartate Amino Transf (AST/SGOT) 57H, Albumin 3.0L 10/19/19 05:45: Sodium Level 125*L, Chloride Level 97L, Carbon Dioxide Level 20L, Calcium Level 8.4L 10/20/19 05:50: White Blood Count 1.5L, Red Blood Count 3.25L, Hemoglobin 10.3L, Hematocrit 29L, Platelet Count 96L, Mean Platelet Volume 12.2H, Neutrophils # (Auto) 0.9L, Lymphocytes # (Auto) 0.4L, Sodium Level 123*L, Chloride Level 94L, Carbon Dioxide Level 20L, Aspartate Amino Transf (AST/SGOT) 59H, Albumin 2.8L, Calcium Level 8.3L, Monocytes (%) (Auto) 16H, Total Protein 6.0L Impression & Plan Impression & Plan IMP: 1. General weakness/debility, no clear etiology except hyponatremia with Na 124. Pt is on water restriction at 1000ml/day. Negative MRI of the head, CXR. 2. Slowly progressive pancytopenia since 07/05/2019. 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 3. Slowly progressive hyponatremia since 03/2018, 134, 131, .....123 now. 4. Recent carpal tunnel surgery of left hand. Recovered. 5. Pt wants to go home tomorrow Plan: 1. Pt can go home from hematology point of view. She maybe able to do physical therapy with home health. She told me that she has a son living with her. 2. I will give her 1 week recovery from current situation and repeat CBC in a week as out-pt. If her CBC is still not improve, then I will arrange bone marrow exam as out-pt. I told the rehab nurse to set up appointment for her since cancer center closed today. 3. Since she has not sign of infection, I would not recommend Neupogen at this point. 4. If she spike fever at home, then she can go to ER for evaluation. However, right now neutropenia is not the reason for her to stay in-patient. 5. No indication for RBC nor Plt transfusion. 6. Stop Lovenox. SHARRI CROWDER MD Oct 20, 2019 17:35
[2019-10-20 18:59] VITALS: BP 127/72
[2019-10-20] MEDS: MELATONIN 3 MG TABLET PO PRN (21:05)
[2019-10-21 05:12] VITALS: BP 115/69
[2019-10-21] MEDS: MULTIVIT W/MINERALS TAB (THERAGRAN M) PO SCH (06:16)
[2019-10-21] MEDS: VITAMIN D3 25 MCG (1,000 UNITS) TABLET PO SCH (06:16)
[2019-10-21] MEDS: LEVOTHYROXINE 50 MCG (LEVOTHROID) TAB PO SCH (06:16)
[2019-10-21 06:21] LABS: BASOPHILS % (AUTO) 0 % (0-10); EOSINOPHILS # (AUTO) 0.1 10^3/uL (0.0-0.3); EOSINOPHILS % (AUTO) 3 % (0-10); HEMATOCRIT 32 % (35-52); HEMOGLOBIN 11.2 G/DL (11.5-16.0); LYMPHOCYTES # (AUTO) 0.6 X 10^3 (1.0-4.0); LYMPHOCYTES % (AUTO) 26 % (12-44); MEAN CORPUSCULAR HEMOGLOBIN 31 PG (25-34); MEAN CORPUSCULAR HGB CONC 35 G/DL (32-36); MEAN CORPUSCULAR VOLUME 89 FL (80-99); MEAN PLATELET VOLUME 11.5 FL (7.4-10.4); MONOCYTES # (AUTO) 0.2 X 10^3 (0.0-1.0); MONOCYTES % (AUTO) 8 % (0-12); NEUTROPHILS # (AUTO) 1.4 X 10^3 (1.8-7.8); NEUTROPHILS % (AUTO) 63 % (42-75); PLATELET COUNT 111 10^3/uL (130-400); WHITE BLOOD COUNT 2.3 10^3/uL (4.3-11.0)
[2019-10-21 06:40] LABS: BILIRUBIN,TOTAL 0.5 MG/DL (0.1-1.0); CALCIUM 8.2 MG/DL (8.5-10.1); CREATININE SERUM 0.93 MG/DL (0.60-1.30); POTASSIUM 4.5 MMOL/L (3.6-5.0); TOTAL PROTEIN 6.5 GM/DL (6.4-8.2)
[2019-10-21] MEDS ORDERED: NF-NACL1GT PO (07:38)
--- NOTE | 2019-10-21 07:39 | D/C HH Face to Face Order ---
D/C Face to Face Orders Reconcile Patient Problems Problems Reviewed?: Yes Instructions for Patient Via [facility], Patient Instructions/FollowUp: DR Spears as scheduled Physician to follow Patient: Tory Discharge Diet for Home: other diet (fluid restriction water 1000cc/day) Patient Problems: Hyponatremia Weakness Patient Data-Allergies,Ht & Wt Patient Allergies: Coded Allergies: No Known Drug Allergies (Unverified , 12/22/12) Height (Feet): 5 Height (Inches): 4.00 Weight (Pounds): 227 Weight (Ounces): 0.0 Home Health Need/Face to Face Date of Face to Face: Oct 21, 2019 Clinical Findings: Generalized weakness and fatigue, Muscle weakness, Unsteady gait I have seen Pt onqu-lh-rlpo: Yes Discharged To: Home Diagnosis/Conditions: Hyponatremia Weakness Patient is Homebound due to: CognItive deficits, Muscle weakness Homebound Status Due to the above stated illness, injury or surgical procedure (medical condition or diagnosis) and associated clinical findings, the patient is homebound because of his/her inability to leave home except with aid of a supportive device and/or person AND leaving the home requires a considerable and taxing effort or is medically contraindicated. Pt req the following assistanc: Walker Home Health Nursing Orders Home Health Services Order: Nursing Services (fluid restriction), Skin Lifter Bacon-Evaluate & Treat, Physical Therapy-Evaluate & Treat Certify Stmt I certify that this patient is under my care and that I, a nurse practitioner or a physician; a ophthalmic medical assistant working with me, had a face to face encounter that - meets the physician face to face encounter requirements with this patient as dated. PARADISE WEST DO Oct 21, 2019 07:39
--- NOTE | 2019-10-21 09:06 | Progress Note ---
Subjective Review of Systems General: Fatigue Neurological: Weakness All Other Systems Reviewed All Other Systems Reviewed: Yes Objective Exam Vital Signs Vital Signs - First Documented 10/17/19 10/17/19 10:35 21:00 Temp 36.1 Pulse 70 Resp 18 B/P (MAP) 114/66 Pulse Ox 97 O2 Delivery Room Air O2 Flow Rate 3.00 Capillary Refill : Less Than 3 Seconds General Appearance: No Apparent Distress, WD/WN, Chronically ill Eyes: Bilateral Eye Normal Inspection, Bilateral Eye PERRL HEENT: PERRL/EOMI, Normal ENT Inspection, Pharynx Normal Neck: Full Range of Motion, Normal Inspection, Non Tender, Supple, Carotid Bruit Respiratory: Chest Non Tender, Lungs Clear, Normal Breath Sounds, No Accessory Muscle Use, No Respiratory Distress Cardiovascular: Regular Rate, Rhythm, No Edema, No Gallop, No JVD, No Murmur, Normal Peripheral Pulses Gastrointestinal: Normal Bowel Sounds, No Organomegaly, No Pulsatile Mass, Non Tender, Soft Back: Normal Inspection, No CVA Tenderness, No Vertebral Tenderness Extremity: Normal Capillary Refill, Normal Inspection, Normal Range of Motion, Non Tender, No Calf Tenderness, No Pedal Edema Neurologic/Psychiatric: Alert, Oriented x3, No Motor/Sensory Deficits, handy worker II- XII Norm as Tested, Abnormal Gait, Depressed Affect, Motor Weakness (generalized) Skin: Normal Color, Warm/Dry Lymphatic: No Adenopathy Results Lab Laboratory Tests 10/21/19 05:55: White Blood Count 2.3L, Red Blood Count 3.57L, Hemoglobin 11.2L, Hematocrit 32L, Mean Corpuscular Volume 89, Mean Corpuscular Hemoglobin 31, Mean Corpuscular Hemoglobin Concent 35, Red Cell Distribution Width 13.0, Platelet Count 111L, Mean Platelet Volume 11.5H, Neutrophils (%) (Auto) 63, Lymphocytes (%) (Auto) 26, Monocytes (%) (Auto) 8, Eosinophils (%) (Auto) 3, Basophils (%) (Auto) 0, Neutrophils # (Auto) 1.4L, Lymphocytes # (Auto) 0.6L, Monocytes # (Auto) 0.2, Eosinophils # (Auto) 0.1, Basophils # (Auto) 0.0, Sodium Level 125*L, Potassium Level 4.5, Chloride Level 96L, Carbon Dioxide Level 21, Anion Gap 8, Blood Urea Nitrogen 13, Creatinine 0.93, Estimat Glomerular Filtration Rate 58, BUN/Creatinine Ratio 14, Glucose Level 89, Calcium Level 8.2L, Corrected Calcium 9.0, Total Bilirubin 0.5, Aspartate Amino Transf (AST/SGOT) 65H, Alanine Aminotransferase (ALT/SGPT) 52, Alkaline Phosphatase 101, Total Protein 6.5, Albumin 3.0L Microbiology 10/20/19 Influenza Types A,B Antigen (NITA) - Final, Complete Assessment/Plan Assessment/Plan Problems: (1) Debility (2) Fall (3) Restrictive lung disease (4) Oxygen dependent (5) Hypertension (6) Hypothyroidism (7) GERD (gastroesophageal reflux disease) Clinical Quality Measures DVT/VTE Risk/Contraindication: Risk Factor Score Per Nursin RFS Level Per Nursing on Admit: 4+=Very High BALWINDER SAWYER MD Oct 21, 2019 09:06
[2019-10-21] MEDS: SENNA W/DOCUSATE (SENOKOT S) TABLET PO SCH (10:11)
[2019-10-21] MEDS: polyethylene glycoL POWDER 17 GM (MIRALAX) PACK PO SCH (10:11)
[2019-10-21] MEDS: DOCUSATE SODIUM 100 MG (COLACE) CAP PO SCH (10:18)
[2019-10-21] MEDS: DULoxetine 20 MG (CYMBALTA) CAP PO SCH (10:21)
[2019-10-21] MEDS: PANTOPRAZOLE 20 MG TABLET (PROTONIX) PO SCH (10:22)
[2019-10-21] MEDS: ACETAMINOPHEN 500 MG TAB (TYLENOL) PO SCH (10:23)
[2019-10-21] MEDS: SODIUM CHLORIDE 1 GM TABLET PO SCH (10:23)
[2019-10-21] MEDS: DICLOFENAC 1% GEL 100 GM (VOLTAREN) TUBE TOP SCH (10:24)
--- NOTE | 2019-10-21 10:35 | Therapy Team Discharge Summary ---
Therapy Discharge Summary Discharge Recommendations Date of Discharge 10/21/2019 Physical Therapy This patient was admitted from home with a dx of debility with pt and family reports of declining functional mobiltiy over the past 6 weeks. Prior to this, she was mod indep with all functional mobility and community ambulation. Upon admission, Pt generally min assist with functional mobility to include bed mobility, transfers and gait. Treatment has consisted of functional strength, balance, functional activities, gait and safety. Pt has made functional progress butgoals not fully achieved due to shortened LOS. Pt requesting to discharge with family support due to recent COVID 19; therefore, goals not fully met. Pt is generally SBA with functional transfers and gait at this time. Recommend follow up PT upon discharge to further progress her functional mobility and safety. DC from ARU this date per patient and family request. Occupational Therapy Decreased Activ Tolerance, Decreased UE Strength, Impaired I ADL's PT Respiratory Physician Goals Respiratory Physician Goals PT Retirement Goals Time Frame: Oct 31, 2019 Roll Left to Right (QC): 6 Sit to Lying (QC): 6 Lying-Sitting on Side/Bed(QC): 6 Sit to Stand (QC): 6 Chair/Cbr-aa-Bbrzt Xfer(QC): 6 Car Transfer (QC): 6 Does the Patient Walk: Yes Walk 10 feet (QC): 6 Walk 10ft-Uneven Surface(QC): 5 Walk 50ft with 2 Turns (QC): 6 Walk 150 ft (QC): 6 Does the Pt use WC or Scooter?: No 1 Step (curb) (QC): 6 4 Steps (QC): 5 12 Steps (QC): 9 Picking up an Object (QC): 4 Goals unmet, she is generally SBA with all transfers and gait. She is mod indep with bed mobility. Shortened LOS per patient request, thus goals not achieved. OT Respiratory Physician Goals Retirement Goals Time Frame: Oct 31, 2019 Eating (QC): 6 (met) Oral Hygiene (QC): 6 (met) Shower/Bathe Self (QC): 6 Upper Body Dressing (QC): 6 Lower Body Dressing (QC): 6 On/Off Footwear (QC): 6 Toileting Hygiene (QC): 6 (me) Toilet/Commode Transfer (QC): 6 Additional Goals: 1-Demonstrate ADL Tasks, 2-Verbalize Understanding, 3- ImproveStrength/Danny 1=Demonstrate adherence to instructed precautions during ADL tasks. 2=Patient will verbalize/demonstrate understanding of assistive devices/modifications for ADL. 3=Patient will improve strength/tolerance for activity to enable patient to perform ADL's. YOUNG BERNSTEIN PT Oct 21, 2019 10:35
--- NOTE | 2019-10-21 11:31 | Discharge Summary ---
Diagnosis/Chief Complaint Date of Admission Oct 17, 2019 at 10:09 Date of Discharge Discharge Date: Oct 21, 2019 Discharge Diagnosis Assessment: Debility Weakness HTN HLP Hypothyroidism Restrictive lung disease Oxygen dependency Depression Hyponatremia Pancytopenia Plan: IRF protocol Home meds Monitor for pain and falls DC Dyazide Fluid restriction Consult Hematology (1) Debility (2) Fall (3) Restrictive lung disease (4) Oxygen dependent (5) Hypertension (6) Hypothyroidism (7) GERD (gastroesophageal reflux disease) Discharge Summary Discharge Physical Examination Allergies: Coded Allergies: No Known Drug Allergies (Unverified , 12/22/12) Vitals & I&Os Vital Signs Date Time Temp Pulse Resp B/P (MAP) Pulse Ox O2 Delivery O2 Flow Rate FiO2 10/21/19 12:00 10/21/19 08:25 Nasal Cannula 3.00 10/21/19 05:12 36.0 76 14 98 General Appearance: Alert, Oriented X3, Cooperative Respiratory: Clear to Auscultation Cardiovascular: Regular Rate Neuro: Normal Gait, Normal Speech, Strength at 5/5 X4 Ext Psych/Mental Status: Mental Status NL Hospital Course Was the Problem List Reviewed?: Yes Hospital course: Patient had a brief hospital course for 5 days after she was admitted for home when primary care provider recommended this. Labs were assessed showing severe hyponatremia of 124 so Dyazide was discontinued and patient was placed on fluid restriction. 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 Sodium tablets were initiated and sent to the pharmacy and Dr. Spears recommended 1000 cc of pure water and the rest of the time she can drink Gatorade with electrolytes and patient was deemed stable for discharge at her insistence to return home with her son who has chronic mental illness but family will provide the rest of her care and was very interested in audiology evaluation for hearing aids which will be initiated by primary care provider. Labs (last 24 hrs) Laboratory Tests 10/18/19 05:35: White Blood Count 2.0L, Red Blood Count 3.51L, Hemoglobin 11.0L, Hematocrit 32L, Mean Corpuscular Volume 90, Mean Corpuscular Hemoglobin 31, Mean Corpuscular Hemoglobin Concent 35, Red Cell Distribution Width 13.2, Platelet Count 104L, Mean Platelet Volume 12.0H, Neutrophils (%) (Auto) 53, Lymphocytes (%) (Auto) 34, Monocytes (%) (Auto) 10, Eosinophils (%) (Auto) 2, Basophils (%) (Auto) 0, Neutrophils # (Auto) 1.1L, Lymphocytes # (Auto) 0.7L, Monocytes # (Auto) 0.2, Eosinophils # (Auto) 0.0, Basophils # (Auto) 0.0, Sodium Level 124*L, Potassium Level 4.6, Chloride Level 96L, Carbon Dioxide Level 19L, Anion Gap 9, Blood Urea Nitrogen 21H, Creatinine 0.97, Estimat Glomerular Filtration Rate 56, BUN/Creatinine Ratio 22, Glucose Level 79, Calcium Level 8.6, Corrected Calcium 9.4, Total Bilirubin 0.4, Aspartate Amino Transf (AST/SGOT) 57H, Alanine Aminotransferase (ALT/SGPT) 45, Alkaline Phosphatase 98, Total Protein 6.4, Albumin 3.0L 10/19/19 05:45: Sodium Level 125*L, Potassium Level 4.3, Chloride Level 97L, Carbon Dioxide Level 20L, Anion Gap 8, Blood Urea Nitrogen 16, Creatinine 0.90, Estimat Glomerular Filtration Rate > 60, BUN/Creatinine Ratio 18, Glucose Level 91, Calcium Level 8.4L 10/20/19 05:50: White Blood Count 1.5L, Red Blood Count 3.25L, Hemoglobin 10.3L, Hematocrit 29L, Mean Corpuscular Volume 89, Mean Corpuscular Hemoglobin 32, Mean Corpuscular Hemoglobin Concent 36, Red Cell Distribution Width 12.9, Platelet Count 96L, Mean Platelet Volume 12.2H, Neutrophils (%) (Auto) 56, Lymphocytes (%) (Auto) 26, Monocytes (%) (Auto) 16H, Eosinophils (%) (Auto) 3, Basophils (%) (Auto) 0, Neutrophils # (Auto) 0.9L, Lymphocytes # (Auto) 0.4L, Monocytes # (Auto) 0.2, Eosinophils # (Auto) 0.0, Basophils # (Auto) 0.0, Sodium Level 123*L, Potassium Level 4.2, Chloride Level 94L, Carbon Dioxide Level 20L, Anion Gap 9, Blood Urea Nitrogen 15, Creatinine 0.91, Estimat Glomerular Filtration Rate 60, BUN/Creatinine Ratio 16, Glucose Level 87, Calcium Level 8.3L, Total Bilirubin 0.5, Aspartate Amino Transf (AST/SGOT) 59H, Alanine Aminotransferase (ALT/SGPT) 46, Alkaline Phosphatase 88, Total Protein 6.0L, Albumin 2.8L, Neutrophils % (Manual) 68, Lymphocytes % (Manual) 22, Monocytes % (Manual) 9, Eosinophils % (Manual) 1, Anisocytosis SLIGHT, Elliptocytes SLIGHT, Absolute Reticulocyte Count 29, Percent Reticulocyte Count 0.87, Direct Bilirubin 0.3, Indirect Bilirubin 0.2, Lactate Dehydrogenase 149, Thyroid Stimulating Hormone (TSH) 3.12, Smear Scan 0 10/21/19 05:55: White Blood Count 2.3L, Red Blood Count 3.57L, Hemoglobin 11.2L, Hematocrit 32L, Mean Corpuscular Volume 89, Mean Corpuscular Hemoglobin 31, Mean Corpuscular Hemoglobin Concent 35, Red Cell Distribution Width 13.0, Platelet Count 111L, Mean Platelet Volume 11.5H, Neutrophils (%) (Auto) 63, Lymphocytes (%) (Auto) 26, Monocytes (%) (Auto) 8, Eosinophils (%) (Auto) 3, Basophils (%) (Auto) 0, Neutrophils # (Auto) 1.4L, Lymphocytes # (Auto) 0.6L, Monocytes # (Auto) 0.2, Eosinophils # (Auto) 0.1, Basophils # (Auto) 0.0, Sodium Level 125*L, Potassium Level 4.5, Chloride Level 96L, Carbon Dioxide Level 21, Anion Gap 8, Blood Urea Nitrogen 13, Creatinine 0.93, Estimat Glomerular Filtration Rate 58, BUN/Creatinine Ratio 14, Glucose Level 89, Calcium Level 8.2L, Corrected Calcium 9.0, Total Bilirubin 0.5, Aspartate Amino Transf (AST/SGOT) 65H, Alanine Aminotransferase (ALT/SGPT) 52, Alkaline Phosphatase 101, Total Protein 6.5, Albumin 3.0L Microbiology 10/20/19 Influenza Types A,B Antigen (NITA) - Final, Complete Pending Labs Microbiology Date/Time Source Procedure Growth Status 10/20/19 10:14 Nasopharynx Influenza Types A,B Antigen (NITA) - Final Complete Laboratory Tests 10/18/19 05:35: White Blood Count 2.0, Red Blood Count 3.51, Hemoglobin 11.0, Hematocrit 32, Mean Corpuscular Volume 90, Mean Corpuscular Hemoglobin 31, Mean Corpuscular Hemoglobin Concent 35, Red Cell Distribution Width 13.2, Platelet Count 104, Mean Platelet Volume 12.0, Neutrophils (%) (Auto) 53, Lymphocytes (%) (Auto) 34, Monocytes (%) (Auto) 10, Eosinophils (%) (Auto) 2, Basophils (%) (Auto) 0, Neutrophils # (Auto) 1.1, Lymphocytes # (Auto) 0.7, Monocytes # (Auto) 0.2, Eosinophils # (Auto) 0.0, Basophils # (Auto) 0.0, Sodium Level 124, Potassium Level 4.6, Chloride Level 96, Carbon Dioxide Level 19, Anion Gap 9, Blood Urea Nitrogen 21, Creatinine 0.97, Estimat Glomerular Filtration Rate 56, BUN/Creatinine Ratio 22, Glucose Level 79, Calcium Level 8.6, Corrected Calcium 9.4, Total Bilirubin 0.4, Aspartate Amino Transf (AST/SGOT) 57, Alanine Aminotransferase (ALT/SGPT) 45, Alkaline Phosphatase 98, Total Protein 6.4, Albumin 3.0 10/19/19 05:45: Sodium Level 125, Potassium Level 4.3, Chloride Level 97, Carbon Dioxide Level 20, Anion Gap 8, Blood Urea Nitrogen 16, Creatinine 0.90, Estimat Glomerular Filtration Rate > 60, BUN/Creatinine Ratio 18, Glucose Level 91, Calcium Level 8.4 10/20/19 05:50: White Blood Count 1.5, Red Blood Count 3.25, Hemoglobin 10.3, Hematocrit 29, Mean Corpuscular Volume 89, Mean Corpuscular Hemoglobin 32, Mean Corpuscular Hemoglobin Concent 36, Red Cell Distribution Width 12.9, Platelet Count 96, Mean Platelet Volume 12.2, Neutrophils (%) (Auto) 56, Lymphocytes (%) (Auto) 26, Monocytes (%) (Auto) 16, Eosinophils (%) (Auto) 3, Basophils (%) (Auto) 0, Neutrophils # (Auto) 0.9, Lymphocytes # (Auto) 0.4, Monocytes # (Auto) 0.2, Eosinophils # (Auto) 0.0, Basophils # (Auto) 0.0, Sodium Level 123, Potassium Level 4.2, Chloride Level 94, Carbon Dioxide Level 20, Anion Gap 9, Blood Urea Nitrogen 15, Creatinine 0.91, Estimat Glomerular Filtration Rate 60, BUN/Creatinine Ratio 16, Glucose Level 87, Calcium Level 8.3, Total Bilirubin 0.5, Aspartate Amino Transf (AST/SGOT) 59, Alanine Aminotransferase (ALT/SGPT) 46, Alkaline Phosphatase 88, Total Protein 6.0, Albumin 2.8, Neutrophils % (Manual) 68, Lymphocytes % (Manual) 22, Monocytes % (Manual) 9, Eosinophils % (Manual) 1, Anisocytosis SLIGHT, Elliptocytes SLIGHT, Absolute Reticulocyte Count 29, Percent Reticulocyte Count 0.87, Direct Bilirubin 0.3, Indirect Bilirubin 0.2, Lactate Dehydrogenase 149, Thyroid Stimulating Hormone (TSH) 3.12, Smear Scan 0 10/21/19 05:55: White Blood Count 2.3, Red Blood Count 3.57, Hemoglobin 11.2, Hematocrit 32, Mean Corpuscular Volume 89, Mean Corpuscular Hemoglobin 31, Mean Corpuscular Hemoglobin Concent 35, Red Cell Distribution Width 13.0, Platelet Count 111, Mean Platelet Volume 11.5, Neutrophils (%) (Auto) 63, Lymphocytes (%) (Auto) 26, Monocytes (%) (Auto) 8, Eosinophils (%) (Auto) 3, Basophils (%) (Auto) 0, Neutro phils # (Auto) 1.4, Lymphocytes # (Auto) 0.6, Monocytes # (Auto) 0.2, Eosinophils # (Auto) 0.1, Basophils # (Auto) 0.0, Sodium Level 125, Potassium Level 4.5, Chloride Level 96, Carbon Dioxide Level 21, Anion Gap 8, Blood Urea Nitrogen 13, Creatinine 0.93, Estimat Glomerular Filtration Rate 58, BUN/Creatinine Ratio 14, Glucose Level 89, Calcium Level 8.2, Corrected Calcium 9.0, Total Bilirubin 0.5, Aspartate Amino Transf (AST/SGOT) 65, Alanine Aminotransferase (ALT/SGPT) 52, Alkaline Phosphatase 101, Total Protein 6.5, Albumin 3.0 Discharge Home Medications: Active Scripts Active Sodium Chloride 1 Gm Tab 1 Gm PO BID Reported Multivitamins (Multivitamin) 1 Each Tablet 1 Each PO DAILY Vitamin D3 (Cholecalciferol (Vitamin D3)) 25 Mcg Capsule 25 Mcg PO DAILY Diclofenac Sodium 100 Gm Gel..gram. 2 Gm TD QID APPLY TO LEFT WRIST, BOTH SHOULDERS AND UPPER NECK Tylenol Extra Strength (Acetaminophen) 500 Mg Tablet 1,000 Mg PO BID Omeprazole 20 Mg Capsule.dr 20 Mg PO DAILY Levothyroxine Sodium 50 Mcg Tablet 50 Mcg PO DAILY Duloxetine HCl 20 Mg Capsule.dr 20 Mg PO DAILY Alprazolam 0.5 Mg Tablet 0.5 Mg PO HS PRN Instructions to patient/family Please see electronic discharge instructions given to patient. Diagnosis/Problems Diagnosis/Problems (1) Debility (2) Fall (3) Restrictive lung disease (4) Oxygen dependent (5) Hypertension (6) Hypothyroidism (7) GERD (gastroesophageal reflux disease) Qualifiers: Qualified Codes: K21.0 - Gastro-esophageal reflux disease with esophagitis Clinical Quality Measures DVT/VTE Risk/Contraindication: Risk Factor Score Per Nursin RFS Level Per Nursing on Admit: 4+=Very High [facility] DO Oct 21, 2019 11:31
--- NOTE | 2019-10-21 13:57 | NUR ---
CM/SS PATIENT CARE CONFERENCE SUMMARY Met with patient and then spoke with daughter Blanka Craig by phone to review Summary. While team plan was for patient to continue to stay on ARU and participate toward therapy goals and safety, patient had been adamant she would only stay 5 days, and family accepted responsibility to take her home and provide supervision and assistance. Daughter Blanka resides in [place], [place], she intends to take patient to her home day time and return patient to her own home for nights. Patient does reside with son Denton Salinas, because patient may require toileting/bathing supervision/assistance family discussed this altered plan to address care needs. This created difficulty regarding in-home agency services like [facility], depending on where patient would physically be located, and would require a specific schedule. Additionally, patient's home is in [facility] and with Blanka in [place], this creates an additional layer of challenge to find agency licensed to provide in both states if necessary. Will partner with patient and family for a more final discharge plan palatable to all.
--- NOTE | 2019-10-21 13:58 | NUR ---
CM/SS DISCHARGE Partnered with patient and her daughter Blanka (as family commissary representative) for discharge today. [facility]: Medicare Compare information provided to patient and Blanka. Finalized services with their preferred agency, [facility] for RN, PT, OT. Agency understands Blanka is to be primary contact regarding visit scheduling. Blanka indicates she accepts responsibility for patient to be at her own home for scheduled visits. DME: There were no new needs identified regarding assistive devices. Blanka did get a hospital bed for her home so that when patient is there she can utilize it. IMM2 presented to patient, reviewed, signed, charted. Patient dressed and ready to leave, adamant about discharge as noted. Unit RN aware of all arrangements.
--- NOTE | 2019-10-21 15:15 | Therapy Team Discharge Summary ---
Therapy Discharge Summary Discharge Recommendations Date of Discharge Oct 21, 2019 at 12:00 Occupational Therapy Pt admitted from home with debility dx. Pt and family report she has been dec lining functional over the past 6 weeks since she had carpal tunnel surgery. She was primarily independent with ADLs with slight assistance at times for safety within the home and UB dressing. At admission, pt was independent with feeding, and SBA for the following: showering, UB dressing, LB dressing, footwear and toileting. OT tx focused on increasing independence with ADLs, functional strength and endurance. At discharge pt was independent with feeding, Mod I with oral hygiene and toileting (using FWW), and set up with showering, UB dressing, LB dressing, and footwear. Pt met goals of independence with eating, oral hygiene and toileting but other goals not fully met due to pt requesting to discharge with family support due to recent COVID 19. Recommend follow up with OT to further progress her safety with ADLs and functional mobility. DC from OT services at this time due to pt and family request. Decreased Activ Tolerance, Decreased UE Strength, Impaired I ADL's PT Car Seat Upholsterer Goals Fci Goals PT Fci Goals Time Frame: Oct 31, 2019 Roll Left to Right (QC): 6 Sit to Lying (QC): 6 Lying-Sitting on Side/Bed(QC): 6 Sit to Stand (QC): 6 Chair/[id number] Xfer(QC): 6 Car Transfer (QC): 6 Does the Patient Walk: Yes Walk 10 feet (QC): 6 Walk 10ft-Uneven Surface(QC): 5 Walk 50ft with 2 Turns (QC): 6 Walk 150 ft (QC): 6 Does the Pt use WC or Scooter?: No 1 Step (curb) (QC): 6 4 Steps (QC): 5 12 Steps (QC): 9 Picking up an Object (QC): 4 OT Fci Goals Fci Goals Time Frame: Oct 31, 2019 Eating (QC): 6 (met) Oral Hygiene (QC): 6 (met) Shower/Bathe Self (QC): 6 (not met, set up) Upper Body Dressing (QC): 6 (not met, set up) Lower Body Dressing (QC): 6 (not met, set up) On/Off Footwear (QC): 6 (not met, set up) Toileting Hygiene (QC): 6 (me) Toilet/Commode Transfer (QC): 6 (met) Additional Goals: 1-Demonstrate ADL Tasks, 2-Verbalize Understanding, 3- ImproveStrength/Danny 1=Demonstrate adherence to instructed precautions during ADL tasks. 2=Patient will verbalize/demonstrate understanding of assistive de vices/modifications for ADL. 3=Patient will improve strength/tolerance for activity to enable patient to perform ADL's. KAYLIN YIP OT Oct 21, 2019 15:15
== END 2019-10-21 12:00 | disposition home health service (06) | DRG 948 ==
PROVIDERS: ADMIT Internal Medicine; ATTEND Internal Medicine
DX: R53.1 Weakness (principal); Z47.89 Encounter for other orthopedic aftercare; Z91.81 History of falling; E87.1 Hypo-osmolality and hyponatremia; D61.818 Other pancytopenia; J43.9 Emphysema, unspecified; Z99.81 Dependence on supplemental oxygen; E78.5 Hyperlipidemia, unspecified; I10 Essential (primary) hypertension; K21.9 Gastro-esophageal reflux disease without esophagitis; K44.9 Diaphragmatic hernia without obstruction or gangrene; M19.91 Primary osteoarthritis, unspecified site; E03.9 Hypothyroidism, unspecified; F32.9 Major depressive disorder, single episode, unspecified
CPT/HCPCS: 36415; 70553; 71046; 80048; 80053; 80076; 83615; 84443; 85007; 85025; 85027; 85045; 87804

== ENCOUNTER 2019-10-28 09:45 | Outpatient (RCR) | payer MEDICARE ==
[~2019-10-28 09:45] MED LIST changes: +ACET-2267 PO; +ALPR0.5T7 PO; +ATEN25TA PO; +CHOL10007 PO; +DICL100G31 TD; +DULO20CA19 PO; +LEVO50TA6 PO; +MULT-567 PO; +NF-NACL1GT PO; +OMEP20CA18 PO; +TRIA1TAB3 PO
[2019-10-28 13:32] LABS: BASOPHILS % (AUTO) 0 % (0-10); EOSINOPHILS # (AUTO) 0.1 10^3/uL (0.0-0.3); EOSINOPHILS % (AUTO) 2 % (0-10); HEMATOCRIT 31 % (35-52); HEMOGLOBIN 10.6 G/DL (11.5-16.0); LYMPHOCYTES # (AUTO) 0.4 X 10^3 (1.0-4.0); LYMPHOCYTES % (AUTO) 14 % (12-44); MEAN CORPUSCULAR HEMOGLOBIN 32 PG (25-34); MEAN CORPUSCULAR HGB CONC 35 G/DL (32-36); MEAN CORPUSCULAR VOLUME 92 FL (80-99); MEAN PLATELET VOLUME 10.9 FL (7.4-10.4); MONOCYTES # (AUTO) 0.2 X 10^3 (0.0-1.0); MONOCYTES % (AUTO) 7 % (0-12); NEUTROPHILS # (AUTO) 2.1 X 10^3 (1.8-7.8); NEUTROPHILS % (AUTO) 77 % (42-75); PLATELET COUNT 126 10^3/uL (130-400); RED CELL DISTRIBUTION WIDTH 14.5 % (10.0-14.5); WHITE BLOOD COUNT 2.7 10^3/uL (4.3-11.0)
[2019-10-28 13:51] LABS: BILIRUBIN,TOTAL 0.6 MG/DL (0.1-1.0); CALCIUM 8.2 MG/DL (8.5-10.1); CREATININE SERUM 1.05 MG/DL (0.60-1.30); POTASSIUM 3.8 MMOL/L (3.6-5.0); TOTAL PROTEIN 6.4 GM/DL (6.4-8.2)
== END 2020-01-26 | disposition home or self-care (01) ==
LOC: ONC 09:45
PROVIDERS: ATTEND Internal Medicine Hematology & Oncology
DX: Z86.718 Personal history of other venous thrombosis and embolism (principal)
CPT/HCPCS: 80053; 85025

== ENCOUNTER 2019-12-01 13:57 | Emergency (ER) | payer MEDICARE ==
[~2019-12-01] VITALS: Ht 165 cm; Wt 83.9 kg
[~2019-12-01 13:57] MED LIST changes: -MULT-567 PO; +MULT1TAB69 PO
[2019-12-01] MEDS ORDERED: ASPIRIN 81 MG CHEW (CHILDREN'S ASA) PO ONE (14:00)
[2019-12-01 14:11] LABS: BASOPHILS % (AUTO) 0 % (0-10); EOSINOPHILS # (AUTO) 0.1 10^3/uL (0.0-0.3); EOSINOPHILS % (AUTO) 2 % (0-10); HEMATOCRIT 30 % (35-52); HEMOGLOBIN 9.7 G/DL (11.5-16.0); LYMPHOCYTES # (AUTO) 0.4 X 10^3 (1.0-4.0); LYMPHOCYTES % (AUTO) 6 % (12-44); MEAN CORPUSCULAR HEMOGLOBIN 31 PG (25-34); MEAN CORPUSCULAR HGB CONC 33 G/DL (32-36); MEAN CORPUSCULAR VOLUME 96 FL (80-99); MEAN PLATELET VOLUME 12.4 FL (7.4-10.4); MONOCYTES # (AUTO) 0.4 X 10^3 (0.0-1.0); MONOCYTES % (AUTO) 6 % (0-12); NEUTROPHILS # (AUTO) 6.1 X 10^3 (1.8-7.8); NEUTROPHILS % (AUTO) 87 % (42-75); PLATELET COUNT 114 10^3/uL (130-400); RED CELL DISTRIBUTION WIDTH 16.5 % (10.0-14.5)
--- NOTE | 2019-12-01 14:15 | ED Chest Pain ---
General Stated Complaint: CP Source: patient, EMS Exam Limitations: no limitations History of Present Illness Date Seen by Provider: Dec 01, 2019 Time Seen by Provider: 14:10 Initial Comments To ER for EMS from the [facility] with reports of chest pain. The chest pain began at 10 AM this morning described as sharp and worsened by movement in the center of her chest. She does have some slight shortness of breath. She arrived via [facility] at about 5:30 PM last night following discharge from [facility] in general:. She was admitted there on 11/18/19 for acute on chronic hypoxemic respiratory failure, acute on chronic congestive heart failure, acute on chronic pulmonary embolism. She has chronic hypoxic respiratory failure and wears oxygen 2 L at night. She was discharged on apixaban. She was noted to have issues with self-feeding and failure to thrive on discharge. She was discharged via [facility] for she had an echocardiogram in [place] that showed normal ventricular function with EF of 60%, left atrium severely enlarged a 58 mm, LVH, mitral regurg, aortic regurg, aortic sclerosis and mitral annular calcification. EMS gave aspirin and nitroglycerin sublingual in route. Timing/Duration: changing over time Severity/Quality: moderate Location: central Radiation: no radiation Activities at Onset: none Prior CP/Workup: echocardiography ASA po [employer]: Yes NTG SL [employer]: Yes Allergies and Home Medications Allergies Coded Allergies: No Known Drug Allergies (Unverified , 12/22/12) Home Medications Acetaminophen 500 Mg Tablet, 1,000 MG PO BID, (Reported) Alprazolam 0.5 Mg Tablet, 0.5 MG PO HS PRN for SLEEP, (Reported) Cholecalciferol (Vitamin D3) 25 Mcg Capsule, 25 MCG PO DAILY, (Reported) Diclofenac Sodium 100 Gm Gel..gram., 2 GM TD QID, (Reported) APPLY TO LEFT WRIST, BOTH SHOULDERS AND UPPER NECK Duloxetine HCl 20 Mg Capsule.dr, 20 MG PO DAILY, (Reported) Levothyroxine Sodium 50 Mcg Tablet, 50 MCG PO DAILY, (Reported) Multivitamin 1 Each Tablet, 1 EACH PO DAILY, (Reported) Omeprazole 20 Mg Capsule.dr, 20 MG PO DAILY, (Reported) Sodium Chloride 1 Gm Tab, 1 GM PO BID Prescribed by: PRAADISE WEST on 10/21/19 0738 Patient Home Medication List Home Medication List Reviewed: Yes Review of Systems Review of Systems Constitutional: see HPI; No chills, No fever EENTM: See HPI Respiratory: See HPI Cardiovascular: No Symptoms Reported Gastrointestinal: No Symptoms Reported Genitourinary: No Symptoms Reported Musculoskeletal: no symptoms reported Skin: no symptoms reported Psychiatric/Neurological: No Symptoms Reported Endocrine: No Symptoms Reported Hematologic/Lymphatic: No Symptoms Reported Past Dxuvior-Gkhgkt-Iizrni Hx Patient Social History Recent Hopitalizations: No Immunizations Up To Date Date of Pneumonia Vaccine: Apr 03, 2011 Date of Influenza Vaccine: May 18, 2019 Seasonal Allergies Seasonal Allergies: No Past Medical History Surgeries: Yes Respiratory: Yes (Restrictive lung disease) Currently Using CPAP: No Currently Using BIPAP: No Cardiac: Yes High Cholesterol, Hypertension Neurological: No Reproductive Disorders: No Sexually Transmitted Disease: No HIV/AIDS: No Genitourinary: No Bladder Infection Gastrointestinal: Yes Gastroesophageal Reflux, Hiatal Hernia Musculoskeletal: Yes Arthritis Endocrine: Yes Hypothyroidsim HEENT: No Loss of Vision: Denies Hearing Impairment: Hard of Hearing Cancer: No Psychosocial: Yes Sleep Difficulties, Depression Integumentary: No Blood Disorders: No Adverse Reaction/Blood Tranf: No Family Medical History Arthritis 19 FATHER 19 MOTHER Cancer of mouth G8 SISTER Cardiovascular disease 19 MOTHER G8 BROTHER G8 SISTER G8 SISTER G8 SISTER Hypertension 19 FATHER 19 MOTHER Myocardial infarction 19 MOTHER G8 BROTHER G8 SISTER G8 SISTER Physical Exam Vital Signs Vital Signs - First Documented 12/01/19 14:00 Temp 36.4 Pulse 102 Resp 18 B/P (MAP) 91/79 (83) Capillary Refill : Height, Weight, BMI Height: 5'4.00" Weight: 227lbs. 0.0oz. 102.250840ke; 33.85 BMI Method:Stated General Appearance: No Apparent Distress, WD/WN, Chronically ill Neck: Full Range of Motion, Normal Inspection Respiratory: Lungs Clear, Normal Breath Sounds, No Accessory Muscle Use, No Respiratory Distress Cardiovascular: Regular Rate, Rhythm, Normal Peripheral Pulses Gastrointestinal: Non Tender, Soft Extremity: Normal Capillary Refill, Normal Inspection Neurologic/Psychiatric: Other (keep her eyes closed when talking to me, answers yes to most questions.) Skin: Normal Color, Warm/Dry Progress/Results/Core Measures Results/Orders Lab Results Laboratory Tests Test 12/01/19 14:00 12/01/19 16:00 Range/Units White Blood Count 7.0 4.3-11.0 10^3/uL Red Blood Count 3.09 L 4.35-5.85 10^6/uL Hemoglobin 9.7 L 11.5-16.0 G/DL Hematocrit 30 L 35-52 % Mean Corpuscular Volume 96 80-99 FL Mean Corpuscular Hemoglobin 31 25-34 PG Mean Corpuscular Hemoglobin Concent 33 32-36 G/DL Red Cell Distribution Width 16.5 H 10.0-14.5 % Platelet Count 114 L 130-400 10^3/uL Mean Platelet Volume 12.4 H 7.4-10.4 FL Neutrophils (%) (Auto) 87 H 42-75 % Lymphocytes (%) (Auto) 6 L 12-44 % Monocytes (%) (Auto) 6 0-12 % Eosinophils (%) (Auto) 2 0-10 % Basophils (%) (Auto) 0 0-10 % Neutrophils # (Auto) 6.1 1.8-7.8 X 10^3 Lymphocytes # (Auto) 0.4 L 1.0-4.0 X 10^3 Monocytes # (Auto) 0.4 0.0-1.0 X 10^3 Eosinophils # (Auto) 0.1 0.0-0.3 10^3/uL Basophils # (Auto) 0.0 0.0-0.1 10^3/uL Neutrophils % (Manual) 90 % Lymphocytes % (Manual) 4 % Monocytes % (Manual) 4 % Band Neutrophils 2 % Hypochromasia SLIGHT Anisocytosis SLIGHT Prothrombin Time 24.1 H 12.2-14.7 SEC INR Comment 2.1 H 0.8-1.4 Activated Partial Thromboplast Time 38 H 24-35 SEC Sodium Level 135 135-145 MMOL/L Potassium Level 3.5 L 3.6-5.0 MMOL/L Chloride Level 100 98-107 MMOL/L Carbon Dioxide Level 24 21-32 MMOL/L Anion Gap 11 5-14 MMOL/L Blood Urea Nitrogen 57 H 7-18 MG/DL Creatinine 1.21 0.60-1.30 MG/DL Estimat Glomerular Filtration Rate 43 BUN/Creatinine Ratio 47 Glucose Level 107 H 70-105 MG/DL Calcium Level 8.0 L 8.5-10.1 MG/DL Corrected Calcium 9.5 8.5-10.1 MG/DL Magnesium Level 2.2 1.6-2.4 MG/DL Total Bilirubin 0.7 0.1-1.0 MG/DL Aspartate Amino Transf (AST/SGOT) 105 H 5-34 U/L Alanine Aminotransferase (ALT/SGPT) 42 0-55 U/L Alkaline Phosphatase 160 H 40-136 U/L Myoglobin 93.7 H 10.0-92.0 NG/ML Troponin I < 0.028 < 0.028 <0.028 NG/ML B-Type Natriuretic Peptide 74.2 <100.0 PG/ML Total Protein 6.0 L 6.4-8.2 GM/DL Albumin 2.1 L 3.2-4.5 GM/DL Lipase 91 H 8-78 U/L My Orders Orders - SHEN BRANTLEY APRN Cbc With Automated Diff (12/01/19 14:00) Magnesium (12/01/19 14:00) Chest 1 View, Ap/Pa Only (12/01/19 14:00) Ekg Tracing (12/01/19 14:00) Comprehensive Metabolic Panel (12/01/19 14:00) Myoglobin Serum (12/01/19 14:00) Protime With Inr (12/01/19 14:00) Partial Thromboplastin Time (12/01/19 14:00) O2 (12/01/19 14:00) Monitor-Rhythm Ecg Trace Only (12/01/19 14:00) Lipid Panel (12/02/19 06:00) Ed Iv/Invasive Line Start (12/01/19 14:00) Lipase (12/01/19 14:00) BNP (12/01/19 14:00) Troponin I (12/01/19 14:00) Aspirin Chewable Tablet (Baby Aspirin Ch (12/01/19 14:00) Manual Differential (12/01/19 14:00) Fentanyl Injection (Sublimaze Injection (12/01/19 15:15) Troponin I (12/01/19 16:00) Medications Given in ED Current Medications Medications Dose Ordered Sig/Abbe Route Start Time Stop Time Status Last Admin Dose Admin Fentanyl Citrate 25 mcg ONCE PRN IVP 12/01/19 15:15 12/01/19 15:00 25 MCG Vital Signs/I&O 4/30/20 4/30/20 4/30/20 14:00 14:00 14:00 Temp 36.4 Pulse 102 Resp 18 B/P (MAP) 91/79 (83) Pulse Ox 94 97 O2 Delivery Nasal Cannula Room Air Room Air O2 Flow Rate 2.00 Diagnostic Imaging Diagonstic Imaging: CT Comments NAME: YONATHAN POWER [facility] REC#: [id number] PT STATUS: REG ER : 1940 PHYSICIAN: SHEN BRANTLEY APRN ADMIT DATE: 12/01/19/ER Draft Date of Exam:12/01/19 CHEST 1 VIEW, AP/PA ONLY INDICATION: Chest pain. COMPARISON: 10/20/2019. FINDINGS: Enlargement of the cardiac silhouette increased from the recent exam. It is unclear if this is cardiomegaly or the development of pericardial fluid. There is some central vascular congestion and likely perihilar edema exacerbated in density by a poor inspiratory expansion and poor lung volumes. There is blunting of the angles and a small amount of bilateral pleural fluid suspected. IMPRESSION: Limited by poor inspiratory volume, component of failure is suspected with increased prominence of the cardiac silhouette, central vascularity, and probable perihilar edema with small effusions. Density in the left base is such that lower lobe pneumonia could not be excluded. Dictated on workstation # [id number] Dict: 12/01/19 1429 Trans: 12/01/19 1442 [id number] Interpreted by: JEZ IZQUIERDO Electronically signed by: Departure Communication (Admissions) Spoke with Dr. Murillo, agrees with discharge back to the detention. Impression Primary Impression: Chest pain Qualified Codes: R07.9 - Chest pain, unspecified Disposition: 01 HOME, SELF-CARE Condition: Stable Departure-Patient Inst. Decision time for Depature: 16:53 Referrals: BALWINDER SAWYER MD (PCP/Family) Primary Care Physician Patient Instructions: Chest Pain Copy Copies To 1: BALWINDER SAWYER MD, PETER J APRN Dec 01, 2019 14:15
[2019-12-01 14:23] LABS: INR 2.1 (0.8-1.4); PROTHROMBIN TIME PATIENT 24.1 SEC (12.2-14.7)
[2019-12-01 14:31] LABS: ALBUMIN 2.1 GM/DL (3.2-4.5); BILIRUBIN,TOTAL 0.7 MG/DL (0.1-1.0); CREATININE SERUM 1.21 MG/DL (0.60-1.30); MAGNESIUM 2.2 MG/DL (1.6-2.4); POTASSIUM 3.5 MMOL/L (3.6-5.0)
--- NOTE | 2019-12-01 14:42 | Diagnostic Imaging Report ---
INDICATION: Chest pain. COMPARISON: 10/20/2019. FINDINGS: Enlargement of the cardiac silhouette increased from the recent exam. It is unclear if this is cardiomegaly or the development of pericardial fluid. There is some central vascular congestion and likely perihilar edema exacerbated in density by a poor inspiratory expansion and poor lung volumes. There is blunting of the angles and a small amount of bilateral pleural fluid suspected. IMPRESSION: Limited by poor inspiratory volume, component of failure is suspected with increased prominence of the cardiac silhouette, central vascularity, and probable perihilar edema with small effusions. Density in the left base is such that lower lobe pneumonia could not be excluded. Dictated by: Dictated on workstation # [id number]
[2019-12-01 14:46] LABS: BAND NEUTROPHILS 2 %; HYPOCHROMASIA SLIGHT; LYMPHOCYTES % (MANUAL) 4 %; MONOCYTES % (MANUAL) 4 %; NEUTROPHILS % (MANUAL) 90 %
[2019-12-01 14:47] LABS: ANISOCYTOSIS SLIGHT
[2019-12-01] MEDS ORDERED: fentaNYL INJECTION 100 MCG/2 ML AMP IVP PRN (15:15)
--- NOTE | 2019-12-01 16:59 | NUR ---
VIA [facility] NOTIFED OF PATIENT BEING DISCHARGED BACK TO FACILITY
[2019-12-01 17:20] VITALS: BP 112/69
== END 2019-12-01 17:30 | disposition home or self-care (01) ==
LOC: EDUNIT# 13:57 → ER 13:58
DX: R07.9 Chest pain, unspecified (principal); J96.11 Chronic respiratory failure with hypoxia; J98.4 Other disorders of lung; E78.00 Pure hypercholesterolemia, unspecified; I10 Essential (primary) hypertension; K21.9 Gastro-esophageal reflux disease without esophagitis; E03.9 Hypothyroidism, unspecified; F32.9 Major depressive disorder, single episode, unspecified; M19.91 Primary osteoarthritis, unspecified site; Z99.81 Dependence on supplemental oxygen; Z79.899 Other long term (current) drug therapy; Z86.711 Personal history of pulmonary embolism
CPT/HCPCS: 36415; 71045; 80053; 83690; 83735; 83874; 83880; 84484; 85007; 85027; 85610; 85730; 93041

== ENCOUNTER → 2019-12-09 | Outpatient (CLI) | payer MEDICARE ==
[2019-12-09 18:24] LABS: BILIRUBIN,URINE NEGATIVE (NEGATIVE); COLOR,URINE DARK YELLOW; GLUCOSE, URINE (UA) NEGATIVE (NEGATIVE); KETONES,URINE TRACE (NEGATIVE); LEUKOCYTE ESTERASE ,URINE TRACE (NEGATIVE); NITRITE,URINE NEGATIVE (NEGATIVE); PROTEIN,URINE TRACE (NEGATIVE)
[2019-12-09 18:31] LABS: CLARITY,URINE SL CLOUDY
[2019-12-09 18:32] LABS: BACTERIA,URINE MODERATE /HPF; CALCIUM OXALATE CRYSTALS,UR RARE /LPF; RBC,URINE RARE /HPF; SQUAMOUS EPITHELIAL CELL,UR 0-2 /HPF; WHITE BLOOD CELL CASTS, URINE RARE /LPF
== END ==
LOC: LABNPT 18:13
PROVIDERS: ATTEND Family Medicine
DX: N39.0 Urinary tract infection, site not specified (principal)
CPT/HCPCS: 81000; 87088

== ENCOUNTER 2019-12-30 09:40 | Outpatient (RCR) | payer MEDICARE ==
--- NOTE | 2019-12-23 09:45 | NUR ---
SITE IN RIGHT AC SOFT, FLAT, NO EDEMA, ECCHYMOSIS, INCREASED RATE TO 300CC/HR, WILL OBSERVE IV SITE CLOSELY
[2019-12-23] MEDS: FERRIC CARBOXYMALTOSE INJ 750 MG in NS (IVPB) 250 ML IV SCH (10:27)
[2019-12-23 10:28] VITALS: BP 122/72
[~2019-12-30] VITALS: Ht 169 cm; Wt 98.2 kg
[2019-12-30 09:40] VITALS: BP 117/81
[2019-12-30] MEDS: FERRIC CARBOXYMALTOSE INJ 750 MG in NS (IVPB) 250 ML IV SCH (10:14)
== END 2019-12-30 11:10 | disposition home or self-care (01) ==
LOC: SDC 09:40
PROVIDERS: ATTEND Family Medicine
DX: D50.9 Iron deficiency anemia, unspecified (principal)
CPT/HCPCS: 96365

== ENCOUNTER → 2020-02-16 | Outpatient (CLI) | payer MEDICARE ==
[~2020-02-16] MED LIST changes: +MULT-567 PO; -MULT1TAB69 PO
== END ==
LOC: CARD 12:48
PROVIDERS: ATTEND Internal Medicine Cardiovascular Disease
DX: I35.2 Nonrheumatic aortic (valve) stenosis with insufficiency (principal); I51.7 Cardiomegaly; M79.89 Other specified soft tissue disorders; Z86.79 Personal history of other diseases of the circulatory system; Z86.2 Personal history of diseases of the blood and blood-forming organs and certain disorders involving the immune mechanism
CPT/HCPCS: 93306

== ENCOUNTER → 2020-11-12 | Outpatient (CLI) | payer MEDICARE ==
--- NOTE | 2020-11-13 12:59 | Diagnostic Imaging Report ---
INDICATION: Routine screening. COMPARISON: 08/09/2019 and 08/04/2018. TECHNIQUE: 2D and 3D bilateral screening mammography was performed with CAD. FINDINGS: Scattered fibroglandular densities are identified bilaterally. Benign parenchymal and vascular calcifications are again noted. No dominant mass or malignant appearing microcalcifications are seen. The axillae are unremarkable. IMPRESSION: No mammographic features suspicious for malignancy are identified. ACR BI-RADS Category 2: Benign findings. Result letter will be mailed to the patient. Note: At least 10% of breast cancer is not imaged by mammography. Dictated by: Dictated on workstation # [id number]
== END ==
LOC: RAD 14:17
PROVIDERS: ATTEND Nurse Practitioner Family
DX: Z12.31 Encounter for screening mammogram for malignant neoplasm of breast (principal)
CPT/HCPCS: 77063; 77067

== ENCOUNTER 2021-01-31 17:05 | Inpatient (IN) | payer MEDICARE ==
[2021-01-31] VITALS (7 sets, daily range): BP systolic 84–137; BP diastolic 50–88
[~2021-01-31] VITALS: Ht 152.4 cm; Wt 89.3 kg
[~2021-01-31 17:05] MED LIST changes: +DICL100G13 TD; -DICL100G31 TD
--- NOTE | 2021-01-31 17:39 | History & Physical ---
History of Present Illness History of Present Illness Reason for visit/HPI PT IS AN 81 Y/O FEMALE WHO IS WELL KNOWN TO ME FROM CLINIC. SHE PRESENTED TO THE OFFICE TODAY AROUND NOON AND WAS COMPLETELY COGNITIVELY INTACT AND AFEBRILE. SHE HAD COMPLAINED OF HAVING TROUBLE URINATING, AND RECTAL PRESSURE. SHE WAS ABLE TO VOID A SMALL AMOUNT IN THE OFFICE, AND IT APPEARED THAT SHE MAY HAVE A UTI. LABS WERE DRAWN AND PT WAS SENT HOME TO WAIT ON THE RESULTS. SHE WAS CALLED AROUND 4PM WITH AN ELEVATED WBC REPORTED AT 20 BY THE OUTSIDE LAB. WE CALLED PT TO COME IN TO HAVE A ROCEPHIN SHOT AND WE WERE CALLING OUT ANTIBIOTICS FOR HER WELL. WHEN THE PT PRESENTED TO THE OFFICE AROUND 435PM, SHE WAS FEELING NAUSEATED, AND SHAKY, BY 450 SHE WAS MOANING AND STATING THAT SHE FELT WORSE AND I EVALUATED PT AND CALLED THE HOSPITAL FOR A DIRECT ADMISSION. ORDERS WERE FAXED FOR FLUIDS AND LABS AT 510PM. BY THE TIME I GOT TO THE FLOOR TO PUT IN MORE ORDERS, PT HAD AN IV BUT NO FLUIDS RUNNING AND PT WAS VOMITING AND HAD DECLINED SIGNIFICANTLY TO THE POINT THAT SHE WAS ALMOST OBTUNEDED. I HAD THE PT SHIPPED UP FROM THE MEDICAL FLOOR TO THE ICU, FLUIDS WERE STARTED TO RUN WIDE OPEN AND STAT LABS WERE DRAWN WITH COVID SWAB, FLU SWAB, URINE, CBC AND CMP ORDERED WELL. HER FAMILY WAS AT BEDSIDE AND REQUESTED A DNR/DNI STATUS ON THE PT. Date of Admission Jan 31, 2021 at 17:16 Date Seen by a Provider: Jan 31, 2021 Time Seen by a Provider: 16:40 Attending Physician Balwinder Spears MD Admitting Physician Balwinder Spears MD [facility] Allergies and Home Medications Allergies Coded Allergies: No Known Drug Allergies (Unverified , 12/22/12) Home Medications Acetaminophen 500 Mg Tablet, 1,000 MG PO BID, (Reported) Last Action: Held Alprazolam 0.5 Mg Tablet, 0.5 MG PO HS PRN for SLEEP, (Reported) Last Action: Held Cholecalciferol (Vitamin D3) 25 Mcg Capsule, 25 MCG PO DAILY, (Reported) Last Action: Held Diclofenac Sodium 100 Gm Gel..gram., 2 GM TD QID, (Reported) APPLY TO LEFT WRIST, BOTH SHOULDERS AND UPPER NECK Last Action: Held Duloxetine HCl 20 Mg Capsule.dr, 20 MG PO DAILY, (Reported) Last Action: Held Levothyroxine Sodium 50 Mcg Tablet, 50 MCG PO DAILY, (Reported) Last Action: Held Multivitamin 1 Each Tablet, 1 EACH PO DAILY, (Reported) Last Action: Held Omeprazole 20 Mg Capsule.dr, 20 MG PO DAILY, (Reported) Last Action: Held Sodium Chloride 1 Gm Tab, 1 GM PO BID Prescribed by: PARADISE WEST on 10/21/19 0738 Last Action: Held Patient Home Medication List Home Medication List Reviewed: Yes Past Dxolxxp-Bezrzm-Mpsfgg Hx Past Med/Social Hx: Reviewed Nursing Past Med/Soc Hx, Reviewed and Corrections made Patient Social History Marrital Status: ( HARJINDER ) Number of Children: 3 Number of living children: 3 Living Status: LIVES AT HOME WITH HER SON KORY Employed/Student: retired Alcohol Use: Denies Use Recreational Drug Use: No Smoking Status: Never a Smoker 2nd Hand Smoke Exposure: No Physical Abuse Screen: No Sexual Abuse: No Recent Foreign Travel: No Contact w/other who traveled: No Recent Hopitalizations: No Recent Infectious Disease Expo: No Immunizations Up To Date Date of Pneumonia Vaccine: Apr 03, 2011 Date of Influenza Vaccine: May 18, 2019 Seasonal Allergies Seasonal Allergies: No Past Medical History Respiratory: Emphysema restrictive lung disease Currently Using CPAP: No Currently Using BIPAP: No Cardiac: High Cholesterol, Hypertension Reproductive: No Sexually Transmitted Disease: No HIV/AIDS: No Female Reproductive Disorders: Denies Genitourinary: Bladder Infection Gastrointestinal: Gastroesophageal Reflux, Hiatal Hernia Musculoskeletal: Arthritis Endocrine: Hypothyroidsim Loss of Vision: Denies Hearing Impairment: Hard of Hearing Psychosocial: Sleep Difficulties, Depression History of Blood Disorders: No Adverse Reaction to Blood Galan: No Family History Reviewed and Corrections made Arthritis 19 FATHER 19 MOTHER Cancer of mouth G8 SISTER Cardiovascular disease 19 MOTHER G8 BROTHER G8 SISTER G8 SISTER G8 SISTER Hypertension 19 FATHER 19 MOTHER Myocardial infarction 19 MOTHER G8 BROTHER G8 SISTER G8 SISTER Heart Disease, Cancer, Hypertension Review of Systems Constitutional: chills, fever, malaise, weakness EENTM: No hoarseness, No throat pain Respiratory: No cough; dyspnea on exertion, short of breath Cardiovascular: No chest pain, No edema, No palpitations Gastrointestinal: No abdominal pain, No constipation; diarrhea, nausea, vomiting Genitourinary: decreased output, hesitancy, pain Musculoskeletal: No back pain; muscle weakness Skin: no symptoms reported Psychiatric/Neurological: Denies Anxiety, Denies Depressed; Weakness All Other Systems Reviewed Negative Unless Noted: Yes Physical Exam Vital Signs Vital Signs - First Documented 01/31/21 01/31/21 17:47 17:57 Temp 39.8 Pulse 120 Resp 20 B/P (MAP) 137/55 (82) Pulse Ox 87 O2 Delivery Room Air O2 Flow Rate 4.00 Capillary Refill : Height, Weight, BMI Height: 5'4.00" Weight: 227lbs. 0.0oz. 102.960230vl; 30.00 BMI Method:Stated General Appearance: WD/WN, Severe Distress HEENT: PERRL/EOMI, Pharynx Normal Neck: Full Range of Motion, Non Tender, Supple Respiratory: Chest Non Tender, Crackles (BASES), Decreased Breath Sounds; No Respiratory Distress, No Wheezing Cardiovascular: Systolic Murmur, Tachycardia Gastrointestinal: Normal Bowel Sounds, Non Tender, Soft Rectal: Deferred Skin: Cool; No Diaphoresis, No Petechia, No Rash Lymphatic: No Adenopathy Assessment/Plan Assessment and Plan SEVERE SEPSIS LACTIC ACIDOSIS HYPONATREMIA ACUTE RENAL FAILURE ACUTE HYPERBILIRUBINEMIA URINARY TRACT INFECTION ACUTE FEVER ACUTE NAUSEA AND EMESIS ACUTE DELIRIUM SEVERE SEPSIS WITH LACTIC ACIDOSIS - PT STARTED ON SEPSIS PROTOCOL - LARGE BOLUS OF FLUIDS - PT TO HAVE 2900ML OF FLUIDS THEN WILL RUN LR AT 150ML/HR - REPEAT LACTIC ACID LEVELS SERIALLY. - COVID NEGATIVE - FLU A AND B NEGATIVE BLOOD CULTURE AND URINE CULTURE PENDING. HYPONATREMIA - REPLENISH WITH LARGE BOLUS FLUIDS - MONITOR SERIAL LABS. ACUTE RENAL FAILURE - FLUID RESUSCITATION, MONITOR LABS. ACUTE HYPERBILIRUBINEMIA WITH ELEVATED AST - DUE TO SHOCK - MONITOR LABS URINARY TRACT INFECTION - PT ON CEFEPIME PER SEPSIS PROTOCOL ACUTE FEVER - TYLENOL SUPPOSITORIES FOR FEVER ACUTE NAUSEA AND EMESIS - ZOFRAN IV PRN NAUSEA - NPO ACUTE DELIRIUM - SUPPORTIVE CARE AT THIS TIME. DVT PROPHYLAXIS WITH LOVENOX GI PROPHYLAXIS WITH IV PROTONIX DNR/DNI STATUS Admission Diagnosis SEVERE SEPSIS LACTIC ACIDOSIS HYPONATREMIA ACUTE RENAL FAILURE ACUTE HYPERBILIRUBINEMIA URINARY TRACT INFECTION ACUTE FEVER ACUTE NAUSEA AND EMESIS ACUTE DELIRIUM Admission Status: Inpatient Order (span 2 midnights) Reason for Inpatient Admission: INPT ADMISSION FOR SEPSIS - WILL REQUIRE AT LEAST 72+ HOURS IN THE HOSPITAL BALWINDER SPEARS MD Jan 31, 2021 17:39
[2021-01-31] MEDS ORDERED: NS IV 1000 ML 1,000 ML ONE (17:53)
[2021-01-31] MEDS ORDERED: ONDANSETRON 4 MG/2 ML (SDV) Z0FRAN ONE ×2 (17:55→17:57)
[2021-01-31] MEDS ORDERED: NS IV 1000 ML 1,000 ML IV SCH (18:00)
[2021-01-31] MEDS ORDERED: NS IV ONE (18:00)
[2021-01-31] MEDS ORDERED: ONDANSETRON 4 MG/2 ML (SDV) Z0FRAN IVP PRN (18:00)
[2021-01-31] MEDS ORDERED: ONDANSETRON 4 MG/2 ML (SDV) Z0FRAN IVP ONE ×2 (18:00)
[2021-01-31] MEDS ORDERED: KETOROLAC 15 MG/ML VIAL IVP PRN (18:15)
[2021-01-31] MEDS ORDERED: ACETAMINOPHEN 650 MG SUPP (TYLENOL) PR PRN (18:15)
[2021-01-31] MEDS ORDERED: KETOROLAC 15 MG/ML VIAL IVP ONE (18:15)
[2021-01-31 18:29] LABS: BILIRUBIN,URINE NEGATIVE (NEGATIVE); CLARITY,URINE CLEAR; COLOR,URINE DARK YELLOW; GLUCOSE, URINE (UA) NEGATIVE (NEGATIVE); KETONES,URINE NEGATIVE (NEGATIVE); LEUKOCYTE ESTERASE ,URINE 2+ (NEGATIVE); NITRITE,URINE POSITIVE (NEGATIVE); PROTEIN,URINE 2+ (NEGATIVE)
--- NOTE | 2021-01-31 18:30 | Diagnostic Imaging Report ---
Indication: Low O2 saturation. Uncooperative. Examination: Chest 01/31/2021 Comparison: 12/01/2019 Findings: Heart is prominent, pulmonary vasculature is congested. There are findings of edema throughout both lungs. Likely infiltrate left base with an adjacent small effusion. There is no pneumothorax Impression: 1. Pulmonary edema. 2. Small left base effusion with adjacent infiltrate. Dictated by: Dictated on workstation # [id number]
[2021-01-31 18:42] LABS: RBC,URINE 25-50 /HPF
[2021-01-31 18:43] LABS: AMORPHOUS SEDIMENT,UR MOD AMOR URATES /LPF; BACTERIA,URINE FEW /HPF; WBC,URINE >100 /HPF
[2021-01-31 18:46] LABS: BASOPHILS % (AUTO) 0 % (0-10); HEMOGLOBIN 12.3 g/dL (11.5-16.0); MONOCYTES % (AUTO) 1 % (0-12)
[2021-01-31] MEDS: CEFEPIME INJECTION 1,000 MG in WATER (STERILE) FOR INJECTION 10 ML IV SCH ×2 (18:46→23:37)
[2021-01-31 18:48] LABS: EOSINOPHILS # (AUTO) 1.5 10^3/uL (0.0-0.3); EOSINOPHILS % (AUTO) 39 % (0-10); HEMATOCRIT 36 % (35-52); LYMPHOCYTES # (AUTO) 0.3 10^3/uL (1.0-4.0); LYMPHOCYTES % (AUTO) 8 % (12-44); MEAN CORPUSCULAR HEMOGLOBIN 32 pg (25-34); MEAN CORPUSCULAR HGB CONC 34 g/dL (32-36); MEAN CORPUSCULAR VOLUME 96 fL (80-99); MEAN PLATELET VOLUME 11.2 fL (9.0-12.2); NEUTROPHILS # (AUTO) 1.9 10^3/uL (1.8-7.8); NEUTROPHILS % (AUTO) 51 % (42-75); PLATELET COUNT 78 10^3/uL (130-400); WHITE BLOOD COUNT 3.8 10^3/uL (4.3-11.0)
[2021-01-31 18:51] LABS: ALBUMIN 3.4 GM/DL (3.2-4.5)
[2021-01-31 18:52] LABS: CALCIUM 8.6 MG/DL (8.5-10.1)
[2021-01-31 18:53] LABS: TOTAL PROTEIN 7.1 GM/DL (6.4-8.2)
[2021-01-31 18:55] LABS: BILIRUBIN,TOTAL 1.4 MG/DL (0.1-1.0)
[2021-01-31 18:57] LABS: CREATININE SERUM 1.65 MG/DL (0.60-1.30)
--- NOTE | 2021-01-31 19:07 | Tele-ICU Consult ---
History of Present Illness History of Present Illness Date Seen by Provider: Jan 31, 2021 Time Seen by Provider: 06:45 Date of Admission 01/31 History of Present Illness new admission. EICU consult. no notes available in computer. no labs available in computer. dw nurse bedside. video assessement done from remote site. exam per bedside physician. cc: ams hpi: patient presnted with high wbc and increased confusion. patient is not at her baseline per nurse. was to be admitted to the floor but came straight up to the ICU per nurse. per nurse mental status worsened on floor. direct admission therefore no other information available. pmhx: chf, pe pshx carpal tunnel surgery fam hx nc social hx per previous notes, lives at home. denied etoh, tobacco, illicits allergies nkda pcp is at bedside per nurse. unable to see vitals via camera and not loaded in [place]. physican exam per bedside. labs - not available. 1. acute encephalopathy 2. r/o intracerebral event 3. r/o sepsis 4. r/o hypoglycemia 5. r/o lab abnormalities 6. r/o alternative causes of encephalopathy with minimal information available, except per nurse a high wbc count at outside physicians office, will get admission labs. icu admission order set will be utillized. a stat ct head will be ordered. accuchecks attempt to get information from family. pct/la r/o sepsis cxr, ua, uds, cultures patient did recieve rocephin at the drs office, will continue rocephin/zmax for now see cpoe for further orders This consultation was done from a remote site, with the only information available via verbal report from nurse and quickly looking at a previous ER report and oncology consult note in the past. Its accuracy may not entirely correct, and i do not take responsibility for any errors above. Patient is unable to provide her own history secondary to her current diagnosis of altered mental status. Please see bedside physicians h/p for more accurate information. orders will be entered, as needed after primary enters orders. cct 20m Allergies and Home Medications Allergies Coded Allergies: No Known Drug Allergies (Unverified , 12/22/12) Home Medications Acetaminophen 500 Mg Tablet, 1,000 MG PO BID, (Reported) Alprazolam 0.5 Mg Tablet, 0.5 MG PO HS PRN for SLEEP, (Reported) Cholecalciferol (Vitamin D3) 25 Mcg Capsule, 25 MCG PO DAILY, (Reported) Diclofenac Sodium 100 Gm Gel..gram., 2 GM TD QID, (Reported) APPLY TO LEFT WRIST, BOTH SHOULDERS AND UPPER NECK Duloxetine HCl 20 Mg Capsule.dr, 20 MG PO DAILY, (Reported) Levothyroxine Sodium 50 Mcg Tablet, 50 MCG PO DAILY, (Reported) Multivitamin 1 Each Tablet, 1 EACH PO DAILY, (Reported) Omeprazole 20 Mg Capsule.dr, 20 MG PO DAILY, (Reported) Sodium Chloride 1 Gm Tab, 1 GM PO BID Prescribed by: PARADISE WEST on 10/21/19 0738 Past Medical/Social/Family Hx Patient Social History Tobacco Use?: No Smoking Status: Never a Smoker Smokeless Tobacco Frequency: Never a User E-Cig and/or Vaping Freq: Never a User Substance use?: No Alcohol Use?: No Pt stated abuse/neglect: No Immunizations Up To Date Date of Pneumonia Vaccine: Apr 03, 2011 Current Status Primary Language: Emirati Review of Systems Constitutional: other (see above) All Other Systems Reviewed Negative Unless Noted: Yes Sepsis Event Evaluation Height, Weight, BMI Height: 5'4.00" Weight: 227lbs. 0.0oz. 102.922007ix; 30.00 BMI Method:Stated Exam Exam Patient acknowledged, consented, and participated in this virtual visit which was conducted using real time audio/video Vital Signs Date Time Temp Pulse Resp B/P (MAP) Pulse Ox O2 Delivery O2 Flow Rate FiO2 01/31/21 18:46 39.2 01/31/21 18:44 39.2 01/31/21 17:57 94 High Flow N/C 4.00 01/31/21 17:47 39.8 120 20 137/55 (82) 87 Room Air Height & Weight Height: 5'4.00" Weight: 227lbs. 0.0oz. 102.384825lo; 30.00 BMI Method:Stated General Appearance: Other (please see bedside physician exam. exam not completed remotely. ) Results Lab Laboratory Tests 01/31/21 18:27 01/31/21 18:29 Assessment/Plan Assessment/Plan see above Critical Care: Critically Ill Patient (see above) Time spent with patient (mins): 20 Diagnosis/Problems Problems/Diagonsis (1) Oxygen dependent FRANKY MITTAL DO Jan 31, 2021 19:07
[2021-01-31] MEDS ORDERED: VANCOMYCIN INJECTION 0.1 MG in NS (IVPB) 250 ML IV SCH (19:30)
[2021-01-31 19:33] LABS: BAND NEUTROPHILS 7 %; LYMPHOCYTES % (MANUAL) 4 %; METAMYELOCYTES % 2 %; MONOCYTES % (MANUAL) 1 %; MYELOCYTES % 1 %; NEUTROPHILS % (MANUAL) 85 %; RBC MORPH NORMAL
[2021-01-31 19:52] LABS: ABG BASE EXCESS -6.5 MMOL/L (-2.5-2.5); ABG OXYGEN SATURATION 99 % (94-100); ABG PCO2 32 MMHG (35-45); ABG PH 7.37 (7.37-7.43); ABG PO2 129 MMHG (79-93); ABG TCO2 18.5 MMOL/L (21.0-31.0); ALLENS TEST YES-POS; INSPIRED O2 6L; PATIENT TEMP 37.8; VENTILATOR NO
[2021-01-31 19:52] LABS: MONOCYTES # (AUTO) 0.1 10^3/uL (0.0-1.0); MONOCYTES % (AUTO) 1 % (0-12)
[2021-01-31 19:54] LABS: BASOPHILS % (AUTO) 0 % (0-10); EOSINOPHILS % (AUTO) 0 % (0-10); HEMATOCRIT 32 % (35-52); HEMOGLOBIN 10.8 g/dL (11.5-16.0); LYMPHOCYTES # (AUTO) 0.3 10^3/uL (1.0-4.0); LYMPHOCYTES % (AUTO) 3 % (12-44); MEAN CORPUSCULAR HEMOGLOBIN 32 pg (25-34); MEAN CORPUSCULAR HGB CONC 33 g/dL (32-36); MEAN CORPUSCULAR VOLUME 96 fL (80-99); MEAN PLATELET VOLUME 11.1 fL (9.0-12.2); NEUTROPHILS # (AUTO) 9.2 10^3/uL (1.8-7.8); NEUTROPHILS % (AUTO) 92 % (42-75); PLATELET COUNT 73 10^3/uL (130-400)
[2021-01-31] MEDS: LACTATED RINGERS 1,000 ML IV SCH (20:31)
[2021-01-31] MEDS ORDERED: NS IV 500 ML 500 ML ONE (20:44)
[2021-01-31] MEDS ORDERED: PANTOPRAZOLE 40 MG (PROTONIX) VIAL IV ONE (20:45)
--- NOTE | 2021-01-31 20:55 | Diagnostic Imaging Report ---
PROCEDURE: CT head without contrast. TECHNIQUE: Multiple contiguous axial images were obtained through the brain without the use of intravenous contrast. Auto Exposure Controls were utilized during the CT exam to meet ALARA standards for radiation dose reduction. INDICATION: Acute mental status changes. EXAMINATION: CT brain without contrast 01/31/2021 FINDINGS: There is diffuse chronic ischemic disease in a periventricular distribution. No acute hemorrhage or infarct is seen. No mass, mass effect or midline shift. No hydrocephalus. There is diffuse atrophy which appears age appropriate. There is no acute osseous abnormality. No acute process in the sinuses or mastoid air cells. IMPRESSION: 1. Chronic findings with no acute intracranial process. Dictated by: Dictated on workstation # [id number]
[2021-01-31] MEDS ORDERED: VANCOMYCIN 1500 MG/NS 500 ML IVPB IV NR ×2 (21:00)
[2021-02-01] VITALS (17 sets, daily range): BP systolic 85–153; BP diastolic 57–78
--- NOTE | 2021-02-01 00:05 | Tele-ICU Progress Note ---
Subjective Date Seen by a Provider: Feb 01, 2021 Time Seen by a Provider: 12:04 Sepsis Event Evaluation Height, Weight, BMI Height: 5'4.00" Weight: 227lbs. 0.0oz. [id number]; 36.16 BMI Method:Stated Focused Exam Lactate Level 01/31/21 18:27: Lactic Acid Level 5.98*H 01/31/21 21:05: Lactic Acid Level 3.39*H 01/31/21 23:12: Lactic Acid Level 2.62*H Lactic Acid Level Laboratory Tests Test 01/31/21 21:05 01/31/21 23:12 Lactic Acid Level 3.39 MMOL/L (0.50-2.00) *H 2.62 MMOL/L (0.50-2.00) *H Exam Exam Patient acknowledged, consented, and participated in this virtual visit which was conducted using real time audio/video Vital Signs Date Time Temp Pulse Resp B/P (MAP) Pulse Ox O2 Delivery O2 Flow Rate FiO2 01/31/21 23:38 37.5 High Flow N/C 4.00 01/31/21 23:00 97 84/50 (61) 100 Nasal Cannula 2.00 01/31/21 22:00 103 90/52 (65) 98 Nasal Cannula 2.00 01/31/21 21:00 97 86/52 (63) 98 Nasal Cannula 2.00 01/31/21 20:00 110 92/52 (65) 98 Nasal Cannula 2.00 01/31/21 19:43 37.0 01/31/21 19:00 105 88/55 (66) 100 Nasal Cannula 2.00 01/31/21 19:00 102 01/31/21 18:46 39.2 01/31/21 18:44 39.2 01/31/21 18:00 116 128/88 (101) 95 Nasal Cannula 2.00 01/31/21 17:57 94 High Flow N/C 4.00 01/31/21 17:47 39.8 120 20 137/55 (82) 87 Room Air I & O 02/01/21 07:00 Intake Total 4006 ml Output Total 75 ml Balance 3931 ml Height & Weight Height: 5'4.00" Weight: 227lbs. 0.0oz. 102.585681jo; 36.16 BMI Method:Stated General Appearance: WD/WN, Severe Distress HEENT: PERRL/EOMI, Pharynx Normal Neck: Full Range of Motion, Non Tender, Supple Respiratory: Chest Non Tender, Crackles (BASES), Decreased Breath Sounds; No Respiratory Distress, No Wheezing Cardiovascular: Systolic Murmur, Tachycardia Skin: Cool; No Diaphoresis, No Petechia, No Rash Lymphatic: No Adenopathy Results Lab Laboratory Tests 01/31/21 18:27 01/31/21 18:29 01/31/21 19:47 Assessment/Plan Assessment/Plan Pt developed hypotension and low urine output -lactic acid is trnding down -1l 0.9 ns / levopophed to be prepared -check abg/ bmp -bed isde rn to call if urine output<45cc/h MOISÉS LOPEZ MD Feb 01, 2021 00:05
[2021-02-01] MEDS ORDERED: NOREPINEPHRINE 8 MG/250 ML 250 ML IV SCH ×2 (00:15→03:15)
[2021-02-01] MEDS: NS IV 1000 ML 1,000 ML IV SCH ×3 (00:24→20:20)
[2021-02-01 00:27] LABS: ABG BASE EXCESS -5.2 MMOL/L (-2.5-2.5); ABG OXYGEN SATURATION 98 % (94-100); ABG PCO2 31 MMHG (35-45); ABG PO2 110 MMHG (79-93); ABG TCO2 19.7 MMOL/L (21.0-31.0)
[2021-02-01 00:29] LABS: ALLENS TEST YES-POS; INSPIRED O2 4L; PATIENT TEMP 37.5; VENTILATOR NO
[2021-02-01 00:59] LABS: POTASSIUM 3.3 MMOL/L (3.6-5.0)
[2021-02-01 01:00] LABS: CALCIUM 7.6 MG/DL (8.5-10.1)
[2021-02-01 01:04] LABS: CREATININE SERUM 1.57 MG/DL (0.60-1.30)
[2021-02-01 02:53] LABS: BASOPHILS % (AUTO) 0 % (0-10); EOSINOPHILS % (AUTO) 0 % (0-10)
[2021-02-01 02:55] LABS: HEMATOCRIT 33 % (35-52); LYMPHOCYTES # (AUTO) 1.1 10^3/uL (1.0-4.0); LYMPHOCYTES % (AUTO) 5 % (12-44); MEAN CORPUSCULAR HEMOGLOBIN 32 pg (25-34); MEAN CORPUSCULAR HGB CONC 34 g/dL (32-36); MEAN CORPUSCULAR VOLUME 96 fL (80-99); MEAN PLATELET VOLUME 11.9 fL (9.0-12.2); MONOCYTES # (AUTO) 1.4 10^3/uL (0.0-1.0); MONOCYTES % (AUTO) 6 % (0-12); NEUTROPHILS # (AUTO) 19.7 10^3/uL (1.8-7.8); NEUTROPHILS % (AUTO) 82 % (42-75); PLATELET COUNT 75 10^3/uL (130-400); WHITE BLOOD COUNT 24.1 10^3/uL (4.3-11.0)
[2021-02-01] MEDS: LACTATED RINGERS 1,000 ML IV SCH ×2 (03:12→10:58)
[2021-02-01 03:13] LABS: ALBUMIN 2.7 GM/DL (3.2-4.5); POTASSIUM 3.4 MMOL/L (3.6-5.0)
[2021-02-01] MEDS: POTASSIUM CL 10MEQ/50ML IVPB 50 ML IV SCH ×4 (03:13→06:55)
[2021-02-01 03:14] LABS: CALCIUM 7.5 MG/DL (8.5-10.1)
[2021-02-01 03:15] LABS: TOTAL PROTEIN 5.4 GM/DL (6.4-8.2)
[2021-02-01 03:17] LABS: BILIRUBIN,TOTAL 0.9 MG/DL (0.1-1.0)
[2021-02-01 03:19] LABS: CREATININE SERUM 1.61 MG/DL (0.60-1.30)
[2021-02-01 03:38] LABS: BAND NEUTROPHILS 19 %; LYMPHOCYTES % (MANUAL) 4 %; MONOCYTES % (MANUAL) 3 %; NEUTROPHILS % (MANUAL) 74 %
[2021-02-01 03:39] LABS: TOXIC GRANULATION/VACUOLAZATIO 1+
[2021-02-01] MEDS ORDERED: NOREPINEPHRINE 8 MG/250 ML 250 ML IV ONE (03:54)
[2021-02-01] MEDS: CEFEPIME INJECTION 1,000 MG in WATER (STERILE) FOR INJECTION 10 ML IV SCH ×2 (05:45→18:47)
[2021-02-01] MEDS: PANTOPRAZOLE 40 MG (PROTONIX) VIAL IV SCH (08:25)
--- NOTE | 2021-02-01 08:53 | Tele-ICU Progress Note ---
Subjective Date Seen by a Provider: Feb 01, 2021 Time Seen by a Provider: 08:52 Subjective/Events-last exam 81 yo F in MICU for AMS, has smal PNA, CT head neg Has good improvement with normal mental status On IV Vanco, Cefepime, no pressors though BP 90's/60's CXR shows elevated diaphragms, has obesity, looks mildly congestive Has COVID 2020 still weak from that, has fair cough Sepsis Event Evaluation Height, Weight, BMI Height: 5'4.00" Weight: 227lbs. 0.0oz. 102.594904tx; 36.16 BMI Method:Stated Focused Exam Lactate Level 02/01/21 00:40: Lactic Acid Level 2.43*H 02/01/21 02:40: Lactic Acid Level 2.40*H 02/01/21 05:55: Lactic Acid Level 1.92 Lactic Acid Level Laboratory Tests Test 02/01/21 05:55 Lactic Acid Level 1.92 MMOL/L (0.50-2.00) Exam Exam Patient acknowledged, consented, and participated in this virtual visit which was conducted using real time audio/video Vital Signs Date Time Temp Pulse Resp B/P (MAP) Pulse Ox O2 Delivery O2 Flow Rate FiO2 02/01/21 08:00 88 92/62 (72) 99 High Flow N/C 2.00 02/01/21 07:45 36.8 02/01/21 07:00 79 02/01/21 07:00 80 90/59 (69) 100 High Flow N/C 2.00 02/01/21 06:00 110 88/58 (68) 98 High Flow N/C 2.00 02/01/21 05:00 87 92/60 (71) 98 High Flow N/C 2.00 02/01/21 04:03 36.9 High Flow N/C 2.00 02/01/21 04:00 90 88/57 (67) 99 High Flow N/C 2.00 02/01/21 04:00 98 High Flow N/C 2.00 02/01/21 03:11 High Flow N/C 2.00 02/01/21 03:00 92 95/66 (76) 99 High Flow N/C 4.00 02/01/21 02:00 103 88/61 (70) 99 High Flow N/C 4.00 02/01/21 01:00 106 88/57 (67) 95 High Flow N/C 4.00 02/01/21 01:00 112 02/01/21 00:00 98 High Flow N/C 4.00 02/01/21 00:00 107 85/65 (72) 100 High Flow N/C 4.00 01/31/21 23:38 37.5 High Flow N/C 4.00 01/31/21 23:00 97 84/50 (61) 100 Nasal Cannula 2.00 01/31/21 22:00 103 90/52 (65) 98 Nasal Cannula 2.00 01/31/21 21:00 97 86/52 (63) 98 Nasal Cannula 2.00 01/31/21 20:00 110 92/52 (65) 98 Nasal Cannula 2.00 01/31/21 20:00 98 High Flow N/C 4.00 01/31/21 19:43 37.0 01/31/21 19:00 105 88/55 (66) 100 Nasal Cannula 2.00 01/31/21 19:00 102 01/31/21 18:46 39.2 01/31/21 18:44 39.2 01/31/21 18:00 116 128/88 (101) 95 Nasal Cannula 2.00 01/31/21 17:57 94 High Flow N/C 4.00 01/31/21 17:47 39.8 120 20 137/55 (82) 87 Room Air I & O 02/01/21 07:00 Intake Total 6741 ml Output Total 275 ml Balance 6466 ml Height & Weight Height: 5'4.00" Weight: 227lbs. 0.0oz. 102.147082zx; 36.16 BMI Method:Stated General Appearance: No Apparent Distress, WD/WN, Severe Distress HEENT: PERRL/EOMI, Pharynx Normal Neck: Full Range of Motion, Non Tender, Supple Respiratory: Chest Non Tender, Crackles (BASES), Decreased Breath Sounds; No Respiratory Distress, No Wheezing Cardiovascular: Regular Rate, Rhythm, Systolic Murmur, Tachycardia Gastrointestinal: normal bowel sounds, soft Extremity: No Pedal Edema Neurologic/Psychiatric: Alert, Oriented x3 Skin: Cool; No Diaphoresis, No Petechia, No Rash Lymphatic: No Adenopathy Results Lab Laboratory Tests 01/31/21 18:27 01/31/21 18:29 01/31/21 19:47 02/01/21 00:40 02/01/21 02:40 Assessment/Plan Assessment/Plan Much better with mental status much improved, will continue on abx ERIK CASTILLO MD Feb 01, 2021 08:53
[2021-02-01] MEDS ORDERED: ENOXAPARIN 30 MG/0.3 ML (LOVENOX) SYR SC SCH (09:00)
--- NOTE | 2021-02-01 13:25 | Progress Note ---
Subjective Subjective Date Seen by Provider: Feb 01, 2021 Time Seen by Provider: 10:20 PT IS AN 81 Y/O FEMALE WHO IS WELL KNOW TO ME FROM CLINIC. SHE PRESENTED TO THE HOSPITAL WITH SEPSIS, SHE IS MUCH IMPROVED FROM ADMISSION. PT IS ALERT, ORIENTED TO SELF AND DENIES CHEST PAIN, SHORTNESS OF BREATH, ABDOMINAL PAIN, NAUSEA. Review of Systems General: No Chills; Fatigue HEENT: No Head Aches, No Visual Changes Pulmonary: No Dyspnea, No Cough Cardiovascular: No: Chest Pain, Palpitations Gastrointestinal: No: Nausea, Vomiting, Abdominal Pain Genitourinary: No Dysuria Musculoskeletal: No: back pain Neurological: Weakness; No: Confusion All Other Systems Reviewed All Other Systems Reviewed: Yes Objective Exam Vital Signs Vital Signs - First Documented 01/31/21 01/31/21 17:47 17:57 Temp 39.8 Pulse 120 Resp 20 B/P (MAP) 137/55 (82) Pulse Ox 87 O2 Delivery Room Air O2 Flow Rate 4.00 Capillary Refill : General Appearance: No Apparent Distress, WD/WN HEENT: PERRL/EOMI, Pharynx Normal Neck: Full Range of Motion, Non Tender, Supple Respiratory: Chest Non Tender, Crackles (BASES), Decreased Breath Sounds; No Respiratory Distress, No Wheezing Cardiovascular: Regular Rate, Rhythm, Systolic Murmur, Tachycardia Gastrointestinal: Normal Bowel Sounds, Non Tender, Soft Rectal: Deferred Extremity: No Pedal Edema Neurologic/Psychiatric: Alert, Oriented x3, No Motor/Sensory Deficits, Normal Mood/Affect, forge heater II-XII Norm as Tested Skin: Normal Color, Warm/Dry Lymphatic: No Adenopathy Results Lab Laboratory Tests 01/31/21 18:17: Urine Color DARK YELLOW, Urine Clarity CLEAR, Urine pH 6.0, Urine Specific [place] 1.020, Urine Protein 2+H, Urine Glucose (UA) NEGATIVE, Urine Ketones NEGATIVE, Urine Nitrite POSITIVEH, Urine Bilirubin NEGATIVE, Urine Urobilinogen 0.2, Urine Leukocyte Esterase 2+H, Urine RBC (Auto) 3+H, Urine RBC 25-50H, Urine WBC >100H, Urine Crystals PRESENTH, Urine Amorphous Sediment MOD TREY URATESH, Urine Bacteria FEWH, Urine Casts NONE, Urine Mucus SMALLH, Urine Culture Indicated YES 01/31/21 18:27: Sodium Level 127L, Potassium Level 5.0, Chloride Level 92L, Carbon Dioxide Level 17L, Anion Gap 18H, Blood Urea Nitrogen 29H, Creatinine 1.65H, Estimat Glomerular Filtration Rate 30, BUN/Creatinine Ratio 18, Glucose Level 62L, Lactic Acid Level 5.98*H, Calcium Level 8.6, Corrected Calcium 9.1, Total Bilirubin 1.4H, Aspartate Amino Transf (AST/SGOT) 45H, Alanine Aminotransferase (ALT/SGPT) 23, Alkaline Phosphatase 114, Total Protein 7.1, Albumin 3.4 01/31/21 18:29: White Blood Count 3.8L, Red Blood Count 3.80, Hemoglobin 12.3, Hematocrit 36, Mean Corpuscular Volume 96, Mean Corpuscular Hemoglobin 32, Mean Corpuscular Hemoglobin Concent 34, Red Cell Distribution Width 13.2, Platelet Count 78L, Mean Platelet Volume 11.2, Immature Granulocyte % (Auto) 2, Neutrophils (%) (Auto) 51, Lymphocytes (%) (Auto) 8L, Monocytes (%) (Auto) 1, Eosinophils (%) (Auto) 39H, Basophils (%) (Auto) 0, Neutrophils # (Auto) 1.9, Lymphocytes # (Auto) 0.3L, Monocytes # (Auto) 0.0, Eosinophils # (Auto) 1.5H, Basophils # (Auto) 0.0, Immature Granulocyte # (Auto) 0.1, Neutrophils % (Manual) 85, Lymphocytes % (Manual) 4, Monocytes % (Manual) 1, Metamyelocytes % 2, Myelocytes % 1, Band Neutrophils 7, Percent Immature Platelet Fraction 6.2, Blood Morphology Comment NORMAL 01/31/21 18:35: Influenza Type A (RT-PCR) Not Detected, Influenza Type B (RT-PCR) Not Detected, SARS-CoV-2 RNA (RT-PCR) Not Detected 01/31/21 19:42: Blood Gas Puncture Site R RAD, Blood Gas Patient Temperature 37.8, Arterial Blood pH 7.37, Arterial Blood Partial Pressure CO2 32L, Arterial Blood Partial Pressure O2 129H, Arterial Blood HCO3 18L, Arterial Blood Total CO2 18.5L, Arterial Blood Oxygen Saturation 99, Arterial Blood Base Excess -6.5L, Jefferson Test YES-POS, Blood Gas Ventilator Setting NO, Blood Gas Inspired Oxygen 6L 01/31/21 19:47: White Blood Count 10.0, Red Blood Count 3.36L, Hemoglobin 10.8L, Hematocrit 32L, Mean Corpuscular Volume 96, Mean Corpuscular Hemoglobin 32, Mean Corpuscular Hemoglobin Concent 33, Red Cell Distribution Width 13.2, Platelet Count 73L, Mean Platelet Volume 11.1, Immature Granulocyte % (Auto) 4, Neutrophils (%) (Auto) 92H, Lymphocytes (%) (Auto) 3L, Monocytes (%) (Auto) 1, Eosinophils (%) (Auto) 0, Basophils (%) (Auto) 0, Neutrophils # (Auto) 9.2H, Lymphocytes # (Auto) 0.3L, Monocytes # (Auto) 0.1, Eosinophils # (Auto) 0.0, Basophils # (Auto) 0.0, Immature Granulocyte # (Auto) 0.4H, Percent Immature Platelet Fraction 6.6, Procalcitonin 30.99H 01/31/21 21:05: Lactic Acid Level 3.39*H 01/31/21 23:12: Lactic Acid Level 2.62*H 01/31/21 23:50: Glucometer 77 02/01/21 00:21: Blood Gas Puncture Site R RADIAL, Blood Gas Patient Temperature 37.5, Arterial Blood pH 7.40, Arterial Blood Partial Pressure CO2 31L, Arterial Blood Partial Pressure O2 110H, Arterial Blood HCO3 19L, Arterial Blood Total CO2 19.7L, Arterial Blood Oxygen Saturation 98, Arterial Blood Base Excess -5.2L, Jefferson Test YES-POS, Blood Gas Ventilator Setting NO, Blood Gas Inspired Oxygen 4L 02/01/21 00:40: Sodium Level 128L, Potassium Level 3.3L, Chloride Level 98, Carbon Dioxide Level 16L, Anion Gap 14, Blood Urea Nitrogen 30H, Creatinine 1.57H, Estimat Glomerular Filtration Rate 32, BUN/Creatinine Ratio 19, Glucose Level 78, Lactic Acid Level 2.43*H, Calcium Level 7.6L 02/01/21 02:40: Sodium Level 128L, Potassium Level 3.4L, Chloride Level 99, Carbon Dioxide Level 16L, Anion Gap 13, Blood Urea Nitrogen 31H, Creatinine 1.61H, Estimat Glomerular Filtration Rate 31, BUN/Creatinine Ratio 19, Glucose Level 80, Lactic Acid Level 2.40*H, Calcium Level 7.5L, White Blood Count 24.1H, Red Blood Count 3.41L, Hemoglobin 11.0L, Hematocrit 33L, Mean Corpuscular Volume 96, Mean Corpuscular Hemoglobin 32, Mean Corpuscular Hemoglobin Concent 34, Red Cell Distribution Width 13.5, Platelet Count 75L, Mean Platelet Volume 11.9, Immature Granulocyte % (Auto) 8, Neutrophils (%) (Auto) 82H, Lymphocytes (%) (Auto) 5L, Monocytes (%) (Auto) 6, Eosinophils (%) (Auto) 0, Basophils (%) (Auto) 0, Neutrophils # (Auto) 19.7H, Lymphocytes # (Auto) 1.1, Monocytes # (Auto) 1.4H, Eosinophils # (Auto) 0.0, Basophils # (Auto) 0.0, Immature Granulocyte # (Auto) 1.9H, Neutrophils % (Manual) 74, Lymphocytes % (Manual) 4, Monocytes % (Manual) 3, Band Neutrophils 19, Toxic Granulation 1+, Percent Immature Platelet Fraction 8.6H, Corrected Calcium 8.5, Total Bilirubin 0.9, Aspartate Amino Transf (AST/SGOT) 34, Alanine Aminotransferase (ALT/SGPT) 20, Alkaline Phosphatase 55, Total Protein 5.4L, Albumin 2.7L 02/01/21 05:55: Lactic Acid Level 1.92 Assessment/Plan Assessment/Plan Admission Dx SEVERE SEPSIS LACTIC ACIDOSIS HYPONATREMIA ACUTE RENAL FAILURE ACUTE HYPERBILIRUBINEMIA URINARY TRACT INFECTION ACUTE FEVER ACUTE NAUSEA AND EMESIS ACUTE DELIRIUM Assessment and Plan SEVERE SEPSIS LACTIC ACIDOSIS HYPONATREMIA ACUTE RENAL FAILURE ACUTE HYPERBILIRUBINEMIA URINARY TRACT INFECTION ACUTE FEVER ACUTE NAUSEA AND EMESIS ACUTE DELIRIUM SEVERE SEPSIS WITH LACTIC ACIDOSIS - PT STARTED ON SEPSIS PROTOCOL ON ADMISSION - LARGE BOLUS OF FLUIDS - PT GIVEN 2900ML OF FLUIDS, THEN 150ML/HR - WILL DECREASE FURTHER TO 100ML/HR - REPEAT LACTIC ACID LEVELS SERIALLY. - COVID NEGATIVE - FLU A AND B NEGATIVE BLOOD CULTURE AND URINE CULTURE PENDING. HYPONATREMIA - REPLENISH WITH LARGE BOLUS FLUIDS - MONITOR SERIAL LABS. - WILL HOLD OFF ON ANY HYPERTONIC SALINE AT THIS TIME SINCE PT IS IMPROVING COGNITIVELY AND PHYSICALLY. ACUTE RENAL FAILURE - FLUID RESUSCITATION, MONITOR LABS. ACUTE HYPERBILIRUBINEMIA WITH ELEVATED AST - DUE TO SHOCK - IMPROVED FROM ADMISSION LABS. URINARY TRACT INFECTION - PT ON CEFEPIME PER SEPSIS PROTOCOL ACUTE FEVER - TYLENOL SUPPOSITORIES FOR FEVER ACUTE NAUSEA AND EMESIS - ZOFRAN IV PRN NAUSEA - RESOLVED FROM ADMISSION - ADVANCE TO REGULAR DIET ACUTE DELIRIUM - RESOLVED LEUKOCYTOSIS - LABS ON ADMIT WERE EXTREMELY DIFFERENT THAN HER LABS JUST 6 HOURS PRIOR WHEN SHE WAS IN MY CLINIC - AT MY OFFICE HER WHITE COUNT WAS 21, HER ADMIT TO HOSPITAL LABS HAD WHITE COUNT AT 3.8 THEN 10, TODAY NOW 24.1 - - I BELIEVE THAT SHE IS IMPROVING DESPITE THE ELEVATION OF HER WHITE COUNT. WILL MONITOR LABS TOMORROW. PT TO BE TRANSFERRED DOWN TO 4TH FLOOR, ANTICIPATE TO KEEP PT OVER THE DAY TODAY AND TOMORROW, IF STILL SHOWING IMPROVEMENT WILL CONSIDER DISCHARGE THURSDAY. DVT PROPHYLAXIS WITH LOVENOX GI PROPHYLAXIS WITH IV PROTONIX DNR/DNI STATUS Problems: (1) Oxygen dependent Admission Dx SEVERE SEPSIS LACTIC ACIDOSIS HYPONATREMIA ACUTE RENAL FAILURE ACUTE HYPERBILIRUBINEMIA URINARY TRACT INFECTION ACUTE FEVER ACUTE NAUSEA AND EMESIS ACUTE DELIRIUM Clinical Quality Measures Admission Status Admission Dx SEVERE SEPSIS LACTIC ACIDOSIS HYPONATREMIA ACUTE RENAL FAILURE ACUTE HYPERBILIRUBINEMIA URINARY TRACT INFECTION ACUTE FEVER ACUTE NAUSEA AND EMESIS ACUTE DELIRIUM BALWINDER SAWYER MD Feb 01, 2021 13:25
[2021-02-01] MEDS ORDERED: POTA-51 PO (14:24)
[2021-02-01] MEDS ORDERED: CEPH500T PO (14:24)
[2021-02-01] MEDS ORDERED: CRAN450T9 PO (14:24)
[2021-02-01] MEDS ORDERED: CHOL200074 PO (14:24)
[2021-02-01] MEDS ORDERED: FURO20TA4 PO (14:24)
[2021-02-01] MEDS ORDERED: CLC600T PO (14:24)
[2021-02-01] MEDS ORDERED: APIX5TAB PO (14:24)
[2021-02-01] MEDS ORDERED: LEVO75TA6 PO (14:24)
[2021-02-01] MEDS ORDERED: ACET325T49 PO (14:24)
[2021-02-01] MEDS ORDERED: MULT-1166 PO (14:24)
[2021-02-01] MEDS ORDERED: METO-333 PO (14:24)
[2021-02-01] MEDS ORDERED: MAGN400T39 PO (14:24)
[2021-02-01] MEDS ORDERED: CYAN100081 PO (14:25)
[2021-02-01] MEDS ORDERED: LACT1CAP64 PO (14:25)
--- NOTE | 2021-02-01 15:06 | Physical Therapy Evaluation ---
PT Evaluation-General Medical Diagnosis Admission Date Jan 31, 2021 at 17:16 Medical Diagnosis: sepsis, UTI Onset Date: Jan 31, 2021 Therapy Diagnosis Therapy Diagnosis: impaired mobility, strength, endurance Height/Weight Height (Feet): 5 Height (Inches): 4.00 Weight (Pounds): 227 Weight (Ounces): 0.0 Precautions Precautions/Isolations: Fall Prevention, Standard Precautions Referral Physician: Tory Reason for Referral: Evaluation/Treatment Medical History Pertinent Medical History: Arthritis Additional Medical History Past Medical History Respiratory: Emphysema restrictive lung disease Currently Using CPAP: No Currently Using BIPAP: No Cardiac: High Cholesterol, Hypertension Reproductive: No Sexually Transmitted Disease: No HIV/AIDS: No Female Reproductive Disorders: Denies Genitourinary: Bladder Infection Gastrointestinal: Gastroesophageal Reflux, Hiatal Hernia Musculoskeletal: Arthritis Endocrine: Hypothyroidsim Loss of Vision: Denies Hearing Impairment: Hard of Hearing Psychosocial: Sleep Difficulties, Depression Reviewed History: Yes Social History Current Living Status: Children (lives with her son) Entry Into Home: Ramp Prior Prior Level of Function SCALE: Activities may be completed with or without assistive devices. 8-[id number] completes the activity by him/herself with no assistance from a helper. 5-Set-up or Clean-up Assistance-helper sets up or cleans up; patient completes activity. [place] assists only prior to or following the activity. 4-Supervision or Touching Assistance-helper provides verbal cues and/or touching/steadying and/or contact guard assistance as patient completes activity. Assistance may be provided throughout the activity or intermittently. 3-Partial/Moderate Assistance-helper does LESS THAN HALF the effort. [place] lifts, holds or supports trunk or limbs, but provides less than half the effort. 2-Substantial/Maximal Assistance-helper does MORE THAN HALF the effort. [place] lifts or holds trunk or limbs and provides more than half the effort. 8-Umelqlzwh-[id number] does ALL the effort. Patient does none of the effort to complete the activity. Or, the assistance of 2 or more helpers is required for the patient to complete the activity. If activity was not attempted, code reason: 7-Patient Refused. 9-Not Applicable-not attempted and the patient did not perform the activity before the current illness, exacerbation or injury. 10-Not Attempted due to Environmental Limitations-(lack of equipment, weather restraints, etc.). 88-Not Attempted due to Medical Conditions or Safety Concerns. Bed Mobility: 6 Transfers (B,C,W/C): 6 Gait: 6 Indoor Mobility (Ambulation): Independent Prior Devices Use: Walker PT Evaluation-Current Subjective Patient in bed pre tx, agrees to PT, has no complaints of pain but states she is very cold. Pt/Family Goals "to get stronger and go home" Objective Patient Orientation: Person, Confused, Place Attachments: [place]arrison Catheter, IV ROM/Strength ROM Lower Extremities WNL Strength Lower Extremities LLE (hip flexion 3/5, knee flexin 4/5, knee extension 4/5, dorsiflexion 3/5), RLE (hip flexion 3+/5, knee flexin 4/5, knee extension 4/5, dorsiflexion 3/5) Sensory Hearing: Functional Sensation Right Lower Extremit: Impaired Sensation Left Lower Extremity: Impaired Transfers Roll Left to Right (QC): 6 Sit to Lying (QC): 3 Lying to Sitting/Side of Bed(Q: 3 Sit to Stand (QC): 4 Chair/Mta-ss-Rqdiy Xfer(QC): 4 Patient needs some help with trunk during supine to sit and help with both legs with sit to supine. Gait Does the Patient Walk?: Yes Mode of Locomotion: Walk Anticipated Mode of Locomotion: Walk Walk 10 feet (QC): 4 Distance: 20' Gait Assistive Device: FWW Comments/Gait Description Patient ambulates slow but steady, was fairly fatigued after ambulating just 20', O2 was 94% after ambulation Balance Sitting Static: Good Sitting Dynamic: Good Standing Static: Good Standing Dynamic: Good Treatment BLE supine exercises x20 (AP, HS) Assessment/Needs Patient in bed post tx with nurse call, phone, tray, all needs met. Patient has impaired mobility, strength, endurance. Patient needs assist getting into/out of bed but just CGA for transfers Rehab Potential: Fair PT Mcc Goals Mcc Goals PT Mcc Goals Time Frame: Feb 08, 2021 Roll Left & Right (QC): 6 Sit to Lying (QC): 6 Lying-Sitting on Side/Bed(QC): 6 Sit to Stand (QC): 6 Chair/Yfx-of-Ioidy Xfer(QC): 6 Walk 10 feet (QC): 6 Walk 50ft with 2 Turns (QC): 6 PT Plan Problem List Problem List: Activity Tolerance, Functional Strength, Safety, Balance, Gait, Transfer, Bed Mobility, ROM Treatment/Plan Treatment Plan: Continue Plan of Care Treatment Plan: Bed Mobility, Education, Functional Activity Danny, Functional Strength, Gait, Safety, Therapeutic Exercise, Transfers Treatment Duration: Feb 08, 2021 Frequency: 6 times per week Estimated Hrs Per Day: .25 hour per day Patient and/or Family Agrees t: Yes Safety Risks/Education Patient Education: Gait Training, Transfer Techniques, Correct Positioning, Safety Issues Teaching Recipient: Patient Teaching Methods: Demonstration, Discussion Response to Teaching: Reinforcement Needed Discharge Recommendations Therapy Discharge Recommendati: Scheduled Assistance, Home & Family, Post Acute PT Time/GCodes Time In: 1437 Time Out: 1456 Total Billed Treatment Time: 19 Total Billed Treatment 1 visit EVL Juan Carlos' JEY HARRIS PT Feb 01, 2021 15:06
[2021-02-01] MEDS ORDERED: ACETAMINOPHEN 325 MG TABLET ONE (15:22)
[2021-02-01] MEDS: ACETAMINOPHEN 325 MG TABLET PO PRN (15:24)
--- NOTE | 2021-02-01 18:35 | Physician Query Clarification ---
Physician Query-General Query to Physician: The medical record reflects the following clinical evidence: Clinical Indicators: sudden onset of decreased mental status, CT head negative, Improvement noted with treatment, NA 127 Risk Factor(s): Sepsis, Hyponatremia, UTI Treatment: Fluid resuscitation appox 3L LR and NS, IV Vanco, IV Cefepime, CT head 1. Metabolic encephalopathy, present on admission 2. Other explanation of clinical findings 3. Unable to determine (no explanation for clinical findings) Please clarify and document your clinical opinion in the progress notes and discharge summary including the definitive and/or presumptive diagnosis, (suspected or probable), related to the above clinical findings. Please include clinical findings supporting your diagnosis. Jovana Ashby MSN, RN [phone] [email or web address] PHYSICIAN RESPONSE: Based on the clinical findings in the record, please respond to the query above on this document as an addendum. Physician Response: If you have questions please contact: Hack Driver: Ext: Thank you for your time and cooperation. Clinical Maintenance Mechanic Engine/Hack Driver This is a permanent part of the medical record JOVANA ASHBY Feb 01, 2021 18:35
[2021-02-01] MEDS: VANCOMYCIN 1250 MG/NS 250 ML IVPB IV SCH ×2 (20:25)
[2021-02-01] MEDS: APIXABAN 5 MG (ELIQUIS) TABLET PO SCH (20:25)
[2021-02-02] MEDS: NS IV 1000 ML 1,000 ML IV SCH ×2 (03:06→16:01)
[2021-02-02 03:55] VITALS: BP 119/63
[2021-02-02 05:48] LABS: HEMOGLOBIN 11.5 g/dL (11.5-16.0); MEAN CORPUSCULAR VOLUME 96 fL (80-99)
[2021-02-02 05:50] LABS: BASOPHILS # (AUTO) 0.1 10^3/uL (0.0-0.1); BASOPHILS % (AUTO) 0 % (0-10); EOSINOPHILS # (AUTO) 0.1 10^3/uL (0.0-0.3); EOSINOPHILS % (AUTO) 0 % (0-10); HEMATOCRIT 34 % (35-52); LYMPHOCYTES # (AUTO) 0.9 10^3/uL (1.0-4.0); LYMPHOCYTES % (AUTO) 5 % (12-44); MEAN CORPUSCULAR HEMOGLOBIN 32 pg (25-34); MEAN CORPUSCULAR HGB CONC 34 g/dL (32-36); MEAN PLATELET VOLUME 12.4 fL (9.0-12.2); MONOCYTES # (AUTO) 0.8 10^3/uL (0.0-1.0); MONOCYTES % (AUTO) 5 % (0-12); NEUTROPHILS # (AUTO) 14.5 10^3/uL (1.8-7.8); NEUTROPHILS % (AUTO) 88 % (42-75); PLATELET COUNT 82 10^3/uL (130-400); WHITE BLOOD COUNT 16.5 10^3/uL (4.3-11.0)
[2021-02-02 06:04] LABS: ALBUMIN 2.6 GM/DL (3.2-4.5)
[2021-02-02 06:05] LABS: POTASSIUM 4.1 MMOL/L (3.6-5.0)
[2021-02-02 06:06] LABS: CALCIUM 7.9 MG/DL (8.5-10.1)
[2021-02-02] MEDS: LEVOTHYROXINE 75 MCG (LEVOTHROID) TABLET PO SCH (06:06)
[2021-02-02] MEDS: CEFEPIME INJECTION 1,000 MG in WATER (STERILE) FOR INJECTION 10 ML IV SCH ×2 (06:06→18:09)
[2021-02-02 06:07] LABS: TOTAL PROTEIN 5.3 GM/DL (6.4-8.2)
[2021-02-02 06:09] LABS: BILIRUBIN,TOTAL 0.6 MG/DL (0.1-1.0)
[2021-02-02 06:11] LABS: CREATININE SERUM 1.32 MG/DL (0.60-1.30)
[2021-02-02] MEDS: LACTOBACILLUS ACIDOPHILUS (PROBIOTIC) CAPSULE PO SCH (08:15)
[2021-02-02] MEDS: PANTOPRAZOLE 40 MG (PROTONIX) VIAL IV SCH (08:15)
[2021-02-02] MEDS: APIXABAN 5 MG (ELIQUIS) TABLET PO SCH ×2 (08:15→20:44)
[2021-02-02 08:38] VITALS: BP 123/70
[2021-02-02] MEDS ORDERED: [UNRECOGNIZED DRUG - OTHER] PO SCH (09:00)
--- NOTE | 2021-02-02 12:41 | Progress Note ---
Subjective Date Seen by a Provider: Feb 02, 2021 Time Seen by a Provider: 12:37 Subjective/Events-last exam Fwup UTI with sepsis, acute renal failure, hyponatremia. Family reports more short of air this morning. Patient complains of pain around her right eye/mandaeism area and constipation. Focused Exam Lactate Level 02/01/21 00:40: Lactic Acid Level 2.43*H 02/01/21 02:40: Lactic Acid Level 2.40*H 02/01/21 05:55: Lactic Acid Level 1.92 Objective Exam Vital Signs Date Time Temp Pulse Resp B/P (MAP) Pulse Ox O2 Delivery O2 Flow Rate FiO2 02/02/21 09:00 Room Air 02/02/21 08:38 36.8 108 20 123/70 (87) 93 Room Air 02/02/21 07:00 99 02/02/21 03:55 37.0 87 20 119/63 (81) 96 Nasal Cannula 2.50 02/02/21 00:39 91 02/01/21 23:57 37.1 80 20 121/78 (92) 98 Nasal Cannula 2.00 02/01/21 21:00 Nasal Cannula 2.00 02/01/21 19:14 36.8 93 23 113/63 (80) 95 Room Air 02/01/21 17:00 36.5 85 20 101/59 (73) 94 Room Air 02/01/21 13:00 83 103/70 (81) 95 Room Air 02/01/21 12:41 80 I & O 02/02/21 07:00 Intake Total 2572.5 ml Output Total 3375 ml Balance -802.5 ml Capillary Refill : General Appearance: No Apparent Distress Neck: Supple Respiratory: Rhonci, Wheezing Cardiovascular: Regular Rate, Rhythm, Systolic Murmur Gastrointestinal: normal bowel sounds, non tender, soft Extremity: Non Tender, No Calf Tenderness, No Pedal Edema Neurologic/Psychiatric: Alert, Oriented x3 Results Lab Laboratory Tests 02/02/21 05:35: White Blood Count 16.5H, Red Blood Count 3.56L, Hemoglobin 11.5, Hematocrit 34L, Mean Corpuscular Volume 96, Mean Corpuscular Hemoglobin 32, Mean Corpuscular Hemoglobin Concent 34, Red Cell Distribution Width 13.6, Platelet Count 82L, Mean Platelet Volume 12.4H, Immature Granulocyte % (Auto) 2, Neutrophils (%) (Auto) 88H, Lymphocytes (%) (Auto) 5L, Monocytes (%) (Auto) 5, Eosinophils (%) (Auto) 0, Basophils (%) (Auto) 0, Neutrophils # (Auto) 14.5H, Lymphocytes # (Auto) 0.9L, Monocytes # (Auto) 0.8, Eosinophils # (Auto) 0.1, Basophils # (Auto) 0.1, Immature Granulocyte # (Auto) 0.3H, Percent Immature Platelet Fraction 7.8H, Sodium Level 134L, Potassium Level 4.1, Chloride Level 108H, Carb on Dioxide Level 17L, Anion Gap 9, Blood Urea Nitrogen 31H, Creatinine 1.32H, Estimat Glomerular Filtration Rate 39, BUN/Creatinine Ratio 23, Glucose Level 83, Calcium Level 7.9L, Corrected Calcium 9.0, Total Bilirubin 0.6, Aspartate Amino Transf (AST/SGOT) 37H, Alanine Aminotransferase (ALT/SGPT) 20, Alkaline Phosphatase 66, Total Protein 5.3L, Albumin 2.6L Microbiology 01/31/21 Blood Culture - Preliminary, Resulted No growth 01/31/21 Urine Culture - Final, Complete Escherichia coli Assessment/Plan Assessment/Plan Assess & Plan/Chief Complaint 1. UTI with Severe Sepsis--WBC count improving, continue IV abx 2. Acute Renal Failure--BUN/Cr improving and patient is eating/drinking well so will decrease IVF rate and repeat lab in AM 3. Hyponatremia--improving 4. Wheezing/RAD--start SVNs with duoneb as well as solumedrol IV 5. Right eye/mandaeism pain--tylenol po now and will see if IV solumedrol helps as well MICHAEL BUSBY DO Feb 02, 2021 12:41
[2021-02-02] MEDS ORDERED: ACETAMINOPHEN 325 MG TABLET PO PRN (12:45)
[2021-02-02] MEDS ORDERED: RT-ALBUTEROL/IPRATROPIUM 3 ML (DUONEB) VIAL INH NR (12:45)
[2021-02-02] MEDS ORDERED: SENNA W/DOCUSATE (SENOKOT S) TABLET PO NR (12:45)
[2021-02-02] MEDS ORDERED: methylPREDNISolone 125 MG (Solu-MEDROL) VIAL IVP NR (12:45)
[2021-02-02 12:51] VITALS: BP 114/62
[2021-02-02] MEDS: ACETAMINOPHEN 325 MG TABLET PO PRN ×2 (12:51→22:48)
--- NOTE | 2021-02-02 12:54 | Physical Therapy Daily Note ---
PT Daily Note-Current Subjective Pt in bed, agreeable to up to chair for breakfast. Pain Numeric Pain Scale: 0-No Pain Mental Status Patient Orientation: Person, Place, Time, Situation Attachments: SCD's, IV Transfers SCALE: Activities may be completed with or without assistive devices. 2-Zsfsjpkrow-saynqsg completes the activity by him/herself with no assistance from a helper. 5-Set-up or Clean-up Assistance-helper sets up or cleans up; patient completes activity. [place] assists only prior to or following the activity. 4-Supervision or Touching Assistance-helper provides verbal cues and/or touching/steadying and/or contact guard assistance as patient completes activity. Assistance may be provided throughout the activity or intermittently. 3-Partial/Moderate Assistance-helper does LESS THAN HALF the effort. [place] lifts, holds or supports trunk or limbs, but provides less than half the effort. 2-Substantial/Maximal Assistance-helper does MORE THAN HALF the effort. [place] lifts or holds trunk or limbs and provides more than half the effort. 4-Ztxpoisar-kszncj does ALL the effort. Patient does none of the effort to complete the activity. Or, the assistance of 2 or more helpers is required for the patient to complete the activity. If activity was not attempted, code reason: 7-Patient Refused. 9-Not Applicable-not attempted and the patient did not perform the activity before the current illness, exacerbation or injury. 10-Not Attempted due to Environmental Limitations-(lack of equipment, weather restraints, etc.). 88-Not Attempted due to Medical Conditions or Safety Concerns. Roll Left & Right (QC): 4 Lying to Sitting/Side of Bed(Q: 4 Sit to Stand (QC): 5 Chair/Xsm-vc-Droot Xfer(QC): 4 bec->chair with FWW with CGA x 1. Weight Bearing Right Lower Extremity: Right Full Weight Bearing Left Lower Extremity: Left Full Weight Bearing Gait Training Does the Patient Walk?: Yes Distance: 5 Gait Assistive Device: FWW bed->chair with FWW Wheelchair Training Does the Pt Use a Wheelchair?: No Exercises Seated Therapy Exercises: Ankle pumps, Long arc quads Seated Reps: 15 Treatments Up to chair with FWW, LE exercises. In chair with all needs met. Assessment Current Status: Fair Progress Pt tolerated well. SBA-CGA for mobility. PT Usp Goals Usp Goals PT Airfield Engineer Officer Goals Time Frame: Feb 08, 2021 Roll Left & Right (QC): 6 Sit to Lying (QC): 6 Lying-Sitting on Side/Bed(QC): 6 Sit to Stand (QC): 6 Chair/Lry-zr-Vexjg Xfer(QC): 6 Walk 10 feet (QC): 6 Walk 50ft with 2 Turns (QC): 6 PT Plan Problem List Problem List: Activity Tolerance, Functional Strength, Safety, Balance, Gait, Transfer, Bed Mobility Treatment/Plan Treatment Plan: Continue Plan of Care Treatment Plan: Bed Mobility, Education, Functional Activity Danny, Functional Strength, Gait, Safety, Therapeutic Exercise, Transfers Treatment Duration: Feb 08, 2021 Frequency: 6 times per week Estimated Hrs Per Day: .25 hour per day Patient and/or Family Agrees t: Yes Time/GCodes Time In: 0840 Time Out: 0854 Total Billed Treatment Time: 14 Total Billed Treatment 1, FA x 14' NIDHI SUBRAMANIAN DPT Feb 02, 2021 12:54
[2021-02-02] MEDS: RT-ALBUTEROL/IPRATROPIUM 3 ML (DUONEB) VIAL INH SCH ×2 (15:02→18:11)
[2021-02-02 16:25] VITALS: BP 102/53
[2021-02-02] MEDS: methylPREDNISolone 125 MG (Solu-MEDROL) VIAL IVP SCH ×2 (18:07→23:30)
[2021-02-02 19:41] VITALS: BP 116/70
[2021-02-02] MEDS: SENNA W/DOCUSATE (SENOKOT S) TABLET PO SCH (20:44)
[2021-02-02] MEDS: VANCOMYCIN 1250 MG/NS 250 ML IVPB IV SCH ×2 (20:44)
[2021-02-03 00:11] VITALS: BP_SYST 115; BP_SYST 116; BP_DIAS 67; BP_DIAS 70
[2021-02-03] MEDS: RT-ALBUTEROL/IPRATROPIUM 3 ML (DUONEB) VIAL INH SCH ×7 (01:17→23:42)
[2021-02-03 04:11] VITALS: BP 135/88
[2021-02-03 05:14] LABS: BASOPHILS % (AUTO) 0 % (0-10); EOSINOPHILS % (AUTO) 0 % (0-10); HEMOGLOBIN 10.9 g/dL (11.5-16.0)
[2021-02-03 05:16] LABS: HEMATOCRIT 33 % (35-52); LYMPHOCYTES # (AUTO) 0.5 10^3/uL (1.0-4.0); LYMPHOCYTES % (AUTO) 6 % (12-44); MEAN CORPUSCULAR HEMOGLOBIN 32 pg (25-34); MEAN CORPUSCULAR HGB CONC 33 g/dL (32-36); MEAN CORPUSCULAR VOLUME 96 fL (80-99); MEAN PLATELET VOLUME 12.3 fL (9.0-12.2); MONOCYTES # (AUTO) 0.2 10^3/uL (0.0-1.0); MONOCYTES % (AUTO) 2 % (0-12); NEUTROPHILS # (AUTO) 7.5 10^3/uL (1.8-7.8); NEUTROPHILS % (AUTO) 91 % (42-75); PLATELET COUNT 97 10^3/uL (130-400); WHITE BLOOD COUNT 8.2 10^3/uL (4.3-11.0)
[2021-02-03] MEDS: CEFEPIME INJECTION 1,000 MG in WATER (STERILE) FOR INJECTION 10 ML IV SCH ×3 (05:26→20:57)
[2021-02-03] MEDS: methylPREDNISolone 125 MG (Solu-MEDROL) VIAL IVP SCH ×3 (05:27→17:45)
[2021-02-03 05:30] LABS: ALBUMIN 2.9 GM/DL (3.2-4.5)
[2021-02-03 05:31] LABS: CALCIUM 8.2 MG/DL (8.5-10.1)
[2021-02-03 05:33] LABS: TOTAL PROTEIN 5.9 GM/DL (6.4-8.2)
[2021-02-03 05:35] LABS: BILIRUBIN,TOTAL 0.5 MG/DL (0.1-1.0)
[2021-02-03 05:36] LABS: CREATININE SERUM 1.15 MG/DL (0.60-1.30)
--- NOTE | 2021-02-03 07:45 | Progress Note ---
Subjective Date Seen by a Provider: Feb 03, 2021 Time Seen by a Provider: 07:43 Subjective/Events-last exam Fwup UTI with sepsis, acute renal failure, hyponatremia, wheezing. C/O cough. Had BM yesterday. Focused Exam Lactate Level 02/01/21 00:40: Lactic Acid Level 2.43*H 02/01/21 02:40: Lactic Acid Level 2.40*H 02/01/21 05:55: Lactic Acid Level 1.92 Objective Exam Vital Signs Date Time Temp Pulse Resp B/P (MAP) Pulse Ox O2 Delivery O2 Flow Rate FiO2 02/03/21 07:03 98 Room Air 02/03/21 07:00 76 02/03/21 04:11 36.5 71 19 135/88 (104) 97 Room Air 02/03/21 01:17 93 Nasal Cannula 2.00 02/03/21 00:20 86 02/03/21 00:11 36.6 72 18 115/67 (83) 93 Room Air 02/02/21 20:45 Room Air 02/02/21 19:41 36.7 80 18 116/70 (85) 91 Room Air 02/02/21 19:00 100 02/02/21 18:12 93 Room Air 02/02/21 16:25 36.5 79 20 102/53 (69) 92 Room Air 02/02/21 15:02 92 Room Air 02/02/21 13:00 96 02/02/21 12:51 35.9 85 20 114/62 (79) 95 Room Air 02/02/21 09:00 Room Air 02/02/21 08:38 36.8 108 20 123/70 (87) 93 Room Air I & O 02/03/21 07:00 Intake Total 3220 ml Output Total 3250 ml Balance -30 ml Capillary Refill : General Appearance: Mild Distress (conversational dyspnea) Respiratory: Decreased Breath Sounds, Wheezing (but improved from yesterday) Cardiovascular: Regular Rate, Rhythm, Systolic Murmur Gastrointestinal: normal bowel sounds, non tender, soft Extremity: Non Tender, No Calf Tenderness, No Pedal Edema Neurologic/Psychiatric: Alert, Oriented x3 Results Lab Laboratory Tests 02/03/21 05:00: White Blood Count 8.2, Red Blood Count 3.41L, Hemoglobin 10.9L, Hematocrit 33L, Mean Corpuscular Volume 96, Mean Corpuscular Hemoglobin 32, Mean Corpuscular Hemoglobin Concent 33, Red Cell Distribution Width 14.2, Platelet Count 97L, Mean Platelet Volume 12.3H, Immature Granulocyte % (Auto) 1, Neutrophils (%) (Auto) 91H, Lymphocytes (%) (Auto) 6L, Monocytes (%) (Auto) 2, Eosinophils (%) (Auto) 0, Basophils (%) (Auto) 0, Neutrophils # (Auto) 7.5, Lymphocytes # (Auto) 0.5L, Monocytes # (Auto) 0.2, Eosinophils # (Auto) 0.0, Basophils # (Auto) 0.0, Immature Granulocyte # (Auto) 0.1, Percent Immature Platelet Fraction 6.7, Sodium Level 137, Potassium Level 4.0, Chloride Level 110H, Carbon Dioxide Level 16L, Anion Gap 11, Blood Urea Nitrogen 30H, Creatinine 1.15, Estimat Glomerular Filtration Rate 45, BUN/Creatinine Ratio 26, Glucose Level 164H, Calcium Level 8.2L, Corrected Calcium 9.1, Total Bilirubin 0.5, Aspartate Amino Transf (AST/SGOT) 32, Alanine Aminotransferase (ALT/SGPT) 25, Alkaline Phosphatase 75, Total Protein 5.9L, Albumin 2.9L Microbiology 01/31/21 Blood Culture - Preliminary, Resulted No growth 01/31/21 Urine Culture - Final, Complete Escherichia coli Assessment/Plan Assessment/Plan Assess & Plan/Chief Complaint 1. UTI with Severe Sepsis--WBC count back to normal, continue IV abx 2. Acute Renal Failure--BUN/Cr improving and patient is eating/drinking well so will DC fluids 3. Hyponatremia--improving 4. Wheezing/RAD--started SVNs with duoneb as well as solumedrol IV yesterday--check CXR today MICHAEL BUSBY DO Feb 03, 2021 07:45
[2021-02-03 08:43] VITALS: BP 126/74
[2021-02-03] MEDS: LACTOBACILLUS ACIDOPHILUS (PROBIOTIC) CAPSULE PO SCH (09:05)
[2021-02-03] MEDS: PANTOPRAZOLE 40 MG (PROTONIX) VIAL IV SCH (09:05)
[2021-02-03] MEDS: APIXABAN 5 MG (ELIQUIS) TABLET PO SCH ×2 (09:07→20:57)
[2021-02-03] MEDS: SENNA W/DOCUSATE (SENOKOT S) TABLET PO SCH ×2 (09:16→20:57)
--- NOTE | 2021-02-03 09:20 | Diagnostic Imaging Report ---
Indication: Dyspnea with wheezing and cough. Comparison: 01/31/2021. Discussion: Two views of the chest were obtained. Cardiomegaly is stable. Probable hiatal hernia is again noted. There is new mixed interstitial and alveolar infiltrates present bilaterally, edema versus pneumonia. No definite effusion identified. No pneumothorax or osseous abnormality. Impression: 1. Cardiomegaly with new severe pulmonary infiltrates, favor edema over pneumonia. Dictated by: Dictated on workstation # [id number]
[2021-02-03 11:42] VITALS: BP 117/66
[2021-02-03] MEDS ORDERED: KCL 8 MEQ (MICRO K) TABLET PO NR (13:15)
[2021-02-03] MEDS ORDERED: FUROSEMIDE 40 MG/4 ML INJ (LASIX) IVP NR (13:15)
[2021-02-03 15:59] VITALS: BP 133/63
[2021-02-03 19:54] VITALS: BP 122/62
[2021-02-03] MEDS ORDERED: TROUGH ORDER-PHARMACY XX NR (20:00)
[2021-02-03] MEDS: VANCOMYCIN 1250 MG/NS 250 ML IVPB IV SCH ×2 (20:56)
[2021-02-04] VITALS: BP 134/77
[2021-02-04] MEDS: methylPREDNISolone 125 MG (Solu-MEDROL) VIAL IVP SCH ×2 (00:10→06:06)
[2021-02-04] MEDS ORDERED: KCL 8 MEQ (MICRO K) TABLET PO ONE (01:00)
[2021-02-04] MEDS ORDERED: FUROSEMIDE 40 MG/4 ML INJ (LASIX) IVP ONE (01:00)
[2021-02-04] MEDS: RT-ALBUTEROL/IPRATROPIUM 3 ML (DUONEB) VIAL INH SCH ×6 (02:39→21:42)
[2021-02-04 03:14] VITALS: BP 136/80
[2021-02-04] MEDS: LEVOTHYROXINE 75 MCG (LEVOTHROID) TABLET PO SCH (06:06)
[2021-02-04] MEDS: CEFEPIME INJECTION 1,000 MG in WATER (STERILE) FOR INJECTION 10 ML IV SCH ×3 (06:06→22:35)
[2021-02-04 06:55] LABS: BASOPHILS % (AUTO) 0 % (0-10); EOSINOPHILS % (AUTO) 0 % (0-10); HEMATOCRIT 32 % (35-52); LYMPHOCYTES # (AUTO) 0.7 10^3/uL (1.0-4.0); LYMPHOCYTES % (AUTO) 10 % (12-44); MEAN CORPUSCULAR HEMOGLOBIN 32 pg (25-34); MEAN CORPUSCULAR HGB CONC 34 g/dL (32-36); MEAN CORPUSCULAR VOLUME 94 fL (80-99); MEAN PLATELET VOLUME 12.4 fL (9.0-12.2); MONOCYTES # (AUTO) 0.4 10^3/uL (0.0-1.0); MONOCYTES % (AUTO) 6 % (0-12); NEUTROPHILS # (AUTO) 5.7 10^3/uL (1.8-7.8); NEUTROPHILS % (AUTO) 82 % (42-75); PLATELET COUNT 120 10^3/uL (130-400)
[2021-02-04 07:30] VITALS: BP 148/83
[2021-02-04 07:31] LABS: ALBUMIN 2.9 GM/DL (3.2-4.5); BILIRUBIN,TOTAL 0.4 MG/DL (0.1-1.0); CALCIUM 8.4 MG/DL (8.5-10.1); CREATININE SERUM 1.32 MG/DL (0.60-1.30); POTASSIUM 3.8 MMOL/L (3.6-5.0); TOTAL PROTEIN 6.1 GM/DL (6.4-8.2)
--- NOTE | 2021-02-04 08:21 | Progress Note ---
Subjective Subjective PT IS AN 81 Y/O FEMALE WHO IS WELL KNOW TO ME FROM CLINIC. SHE PRESENTED TO THE HOSPITAL WITH SEPSIS, SHE IS MUCH IMPROVED FROM ADMISSION. SHE HAD A ROUGH NIGHT LAST NIGHT - REQUIRED A FEW DOSES OF LASIX DUE TO DYSPNEA. PT REPORTEDLY DID NOT HAVE HER OXYGEN IN HER NARES THIS MORNING CONTRIBUTING TO HER CONFUSION/SHORTNESS OF BREATH. Review of Systems General: No Chills; Fatigue HEENT: No Head Aches, No Visual Changes Pulmonary: No Dyspnea, No Cough Cardiovascular: No: Chest Pain, Palpitations Gastrointestinal: No: Nausea, Vomiting, Abdominal Pain Genitourinary: No Dysuria Musculoskeletal: No: back pain Neurological: Weakness; No: Confusion All Other Systems Reviewed All Other Systems Reviewed: Yes Objective Exam Vital Signs Vital Signs - First Documented 01/31/21 01/31/21 17:47 17:57 Temp 39.8 Pulse 120 Resp 20 B/P (MAP) 137/55 (82) Pulse Ox 87 O2 Delivery Room Air O2 Flow Rate 4.00 Capillary Refill : General Appearance: Mild Distress (conversational dyspnea) HEENT: PERRL/EOMI, Pharynx Normal Neck: Supple Respiratory: Decreased Breath Sounds, Wheezing (but improved from yesterday) Cardiovascular: Regular Rate, Rhythm, Systolic Murmur Gastrointestinal: Normal Bowel Sounds, Non Tender, Soft Rectal: Deferred Extremity: Non Tender, No Calf Tenderness, No Pedal Edema Neurologic/Psychiatric: Alert, Oriented x3 Skin: Normal Color, Warm/Dry Lymphatic: No Adenopathy Results Lab Laboratory Tests 02/03/21 19:52: Vancomycin Level Trough 21.5H 02/04/21 06:25: White Blood Count 7.0, Red Blood Count 3.43L, Hemoglobin 11.0L, Hematocrit 32L, Mean Corpuscular Volume 94, Mean Corpuscular Hemoglobin 32, Mean Corpuscular Hemoglobin Concent 34, Red Cell Distribution Width 14.0, Platelet Count 120L, Mean Platelet Volume 12.4H, Immature Granulocyte % (Auto) 3, Neutrophils (%) (Auto) 82H, Lymphocytes (%) (Auto) 10L, Monocytes (%) (Auto) 6, Eosinophils (%) (Auto) 0, Basophils (%) (Auto) 0, Neutrophils # (Auto) 5.7, Lymphocytes # (Auto) 0.7L, Monocytes # (Auto) 0.4, Eosinophils # (Auto) 0.0, Basophils # (Auto) 0.0, Immature Granulocyte # (Auto) 0.2H, Sodium Level 137, Potassium Level 3.8, Chloride Level 109H, Carbon Dioxide Level 20L, Anion Gap 8, Blood Urea Nitrogen 38H, Creatinine 1.32H, Estimat Glomerular Filtration Rate 39, BUN/Creatinine Ratio 29, Glucose Level 146H, Calcium Level 8.4L, Corrected Calcium 9.3, Total Bilirubin 0.4, Aspartate Amino Transf (AST/SGOT) 25, Alanine Aminotransferase (ALT/SGPT) 26, Alkaline Phosphatase 77, Total Protein 6.1L, Albumin 2.9L Microbiology 01/31/21 Blood Culture - Preliminary, Resulted No growth 01/31/21 Urine Culture - Final, Complete Escherichia coli Assessment/Plan Assessment/Plan Admission Dx SEVERE SEPSIS LACTIC ACIDOSIS HYPONATREMIA ACUTE RENAL FAILURE ACUTE HYPERBILIRUBINEMIA URINARY TRACT INFECTION ACUTE FEVER ACUTE NAUSEA AND EMESIS ACUTE DELIRIUM Assessment and Plan SEVERE SEPSIS LACTIC ACIDOSIS HYPONATREMIA ACUTE RENAL FAILURE ACUTE HYPERBILIRUBINEMIA URINARY TRACT INFECTION ACUTE FEVER ACUTE NAUSEA AND EMESIS ACUTE DELIRIUM SEVERE SEPSIS WITH LACTIC ACIDOSIS - PT STARTED ON SEPSIS PROTOCOL ON ADMISSION - LARGE BOLUS OF FLUIDS - PT GIVEN 2900ML OF FLUIDS, THEN 150ML/HR - WILL DECREASE FURTHER TO 100ML/HR - REPEAT LACTIC ACID LEVELS SERIALLY. - COVID NEGATIVE - FLU A AND B NEGATIVE BLOOD CULTURE AND URINE CULTURE PENDING. HYPONATREMIA - REPLENISH WITH LARGE BOLUS FLUIDS - MONITOR SERIAL LABS. - WILL HOLD OFF ON ANY HYPERTONIC SALINE AT THIS TIME SINCE PT IS IMPROVING COGNITIVELY AND PHYSICALLY. ACUTE RENAL FAILURE - FLUID RESUSCITATION, MONITOR LABS. ACUTE HYPERBILIRUBINEMIA WITH ELEVATED AST - DUE TO SHOCK - IMPROVED FROM ADMISSION LABS. URINARY TRACT INFECTION - PT ON CEFEPIME PER SEPSIS PROTOCOL ACUTE FEVER - TYLENOL SUPPOSITORIES FOR FEVER ACUTE NAUSEA AND EMESIS - ZOFRAN IV PRN NAUSEA - RESOLVED FROM ADMISSION - ADVANCE TO REGULAR DIET ACUTE DELIRIUM - RESOLVED LEUKOCYTOSIS - LABS ON ADMIT WERE EXTREMELY DIFFERENT THAN HER LABS JUST 6 HOURS PRIOR WHEN SHE WAS IN MY CLINIC - AT MY OFFICE HER WHITE COUNT WAS 21, HER ADMIT TO HOSPITAL LABS HAD WHITE COUNT AT 3.8 THEN 10, TODAY NOW 24.1 - - I BELIEVE THAT SHE IS IMPROVING DESPITE THE ELEVATION OF HER WHITE COUNT. WILL MONITOR LABS TOMORROW. PT TO BE TRANSFERRED DOWN TO 4TH FLOOR, ANTICIPATE TO KEEP PT OVER THE DAY TODAY AND TOMORROW, IF STILL SHOWING IMPROVEMENT WILL CONSIDER DISCHARGE THURSDAY. DVT PROPHYLAXIS WITH LOVENOX GI PROPHYLAXIS WITH IV PROTONIX DNR/DNI STATUS Problems: (1) Oxygen dependent Admission Dx SEVERE SEPSIS LACTIC ACIDOSIS HYPONATREMIA ACUTE RENAL FAILURE ACUTE HYPERBILIRUBINEMIA URINARY TRACT INFECTION ACUTE FEVER ACUTE NAUSEA AND EMESIS ACUTE DELIRIUM Clinical Quality Measures Admission Status Admission Dx SEVERE SEPSIS LACTIC ACIDOSIS HYPONATREMIA ACUTE RENAL FAILURE ACUTE HYPERBILIRUBINEMIA URINARY TRACT INFECTION ACUTE FEVER ACUTE NAUSEA AND EMESIS ACUTE DELIRIUM BALWINDER SAWYER MD Feb 04, 2021 08:21
[2021-02-04] MEDS ORDERED: FUROSEMIDE 40 MG/4 ML INJ (LASIX) IVP NR (08:30)
[2021-02-04] MEDS ORDERED: VANCOMYCIN 1 GM/NS 250 ML IVPB IV NR ×2 (08:30)
[2021-02-04] MEDS: PANTOPRAZOLE 40 MG (PROTONIX) VIAL IV SCH (09:18)
[2021-02-04] MEDS: APIXABAN 5 MG (ELIQUIS) TABLET PO SCH ×2 (09:18→22:35)
[2021-02-04] MEDS: LACTOBACILLUS ACIDOPHILUS (PROBIOTIC) CAPSULE PO SCH (09:18)
[2021-02-04] MEDS: SENNA W/DOCUSATE (SENOKOT S) TABLET PO SCH ×2 (09:20→22:34)
--- NOTE | 2021-02-04 09:57 | Physical Therapy Daily Note ---
PT Daily Note-Current Subjective Patient agrees to PT. Mental Status Patient Orientation: Person, Time, Situation Attachments: Oxygen, [place] Catheter Transfers SCALE: Activities may be completed with or without assistive devices. 0-Bgbiirnsde-fecsuxo completes the activity by him/herself with no assistance from a helper. 5-Set-up or Clean-up Assistance-helper sets up or cleans up; patient completes activity. [place] assists only prior to or following the activity. 4-Supervision or Touching Assistance-helper provides verbal cues and/or touching/steadying and/or contact guard assistance as patient completes activity. Assistance may be provided throughout the activity or intermittently. 3-Partial/Moderate Assistance-helper does LESS THAN HALF the effort. [place] lifts, holds or supports trunk or limbs, but provides less than half the effort. 2-Substantial/Maximal Assistance-helper does MORE THAN HALF the effort. [place] lifts or holds trunk or limbs and provides more than half the effort. 3-Nnwceqouv-vcaoct does ALL the effort. Patient does none of the effort to complete the activity. Or, the assistance of 2 or more helpers is required for the patient to complete the activity. If activity was not attempted, code reason: 7-Patient Refused. 9-Not Applicable-not attempted and the patient did not perform the activity before the current illness, exacerbation or injury. 10-Not Attempted due to Environmental Limitations-(lack of equipment, weather restraints, etc.). 88-Not Attempted due to Medical Conditions or Safety Concerns. Lying to Sitting/Side of Bed(Q: 6 Sit to Stand (QC): 4 Chair/Qxa-og-Knevf Xfer(QC): 4 Weight Bearing Right Lower Extremity: Right Full Weight Bearing Left Lower Extremity: Left Full Weight Bearing Gait Training Does the Patient Walk?: Yes Distance: 500' Walk 10 feet (QC): 4 Walk 50 ft with 2 Turns(QC): 4 Walk 150 ft (QC): 4 Gait Assistive Device: FWW very slow with multiple standing recovery periods due to SOA with SAO2 >90% Assessment Patient requires time to complete all functional tasks. PT to increase activity as tolerated by patient. PT Senior Living Goals Oracle Business Analyst Goals PT Oracle Business Analyst Goals Time Frame: Feb 08, 2021 Roll Left & Right (QC): 6 Sit to Lying (QC): 6 Lying-Sitting on Side/Bed(QC): 6 Sit to Stand (QC): 6 Chair/Ozm-zl-Swhra Xfer(QC): 6 Walk 10 feet (QC): 6 Walk 50ft with 2 Turns (QC): 6 PT Plan Treatment/Plan Treatment Plan: Continue Plan of Care Treatment Plan: Bed Mobility, Education, Functional Activity Danny, Functional Strength, Gait, Safety, Therapeutic Exercise, Transfers Treatment Duration: Feb 08, 2021 Frequency: 6 times per week Estimated Hrs Per Day: .25 hour per day Patient and/or Family Agrees t: Yes Time/GCodes Time In: 915 Time Out: 938 Total Billed Treatment Time: 23 Total Billed Treatment 1 visit FA x 2 23 min JACKIE ROMERO PT Feb 04, 2021 09:57
[2021-02-04 11:36] VITALS: BP 125/61
[2021-02-04] MEDS: methylPREDNISolone 40 MG/ML (Solu-MEDROL) VIAL IV SCH ×2 (12:38→18:23)
[2021-02-04 16:14] VITALS: BP 121/82
[2021-02-04] MEDS: FUROSEMIDE 40 MG/4 ML INJ (LASIX) IVP SCH (17:09)
[2021-02-04 20:10] VITALS: BP 128/69
[2021-02-05] MEDS: methylPREDNISolone 40 MG/ML (Solu-MEDROL) VIAL IV SCH ×4 (00:16→17:16)
[2021-02-05 00:19] VITALS: BP 133/75
[2021-02-05] MEDS: ACETAMINOPHEN 325 MG TABLET PO PRN ×2 (00:19→20:36)
[2021-02-05] MEDS: RT-ALBUTEROL/IPRATROPIUM 3 ML (DUONEB) VIAL INH SCH ×6 (02:26→21:46)
[2021-02-05 04:24] VITALS: BP 112/61
[2021-02-05 05:52] LABS: BASOPHILS % (AUTO) 0 % (0-10); EOSINOPHILS % (AUTO) 0 % (0-10)
[2021-02-05 05:54] LABS: HEMATOCRIT 33 % (35-52); HEMOGLOBIN 11.2 g/dL (11.5-16.0); LYMPHOCYTES # (AUTO) 0.7 10^3/uL (1.0-4.0); LYMPHOCYTES % (AUTO) 11 % (12-44); MEAN CORPUSCULAR HEMOGLOBIN 32 pg (25-34); MEAN CORPUSCULAR HGB CONC 34 g/dL (32-36); MEAN CORPUSCULAR VOLUME 94 fL (80-99); MEAN PLATELET VOLUME 12.2 fL (9.0-12.2); MONOCYTES # (AUTO) 0.5 10^3/uL (0.0-1.0); MONOCYTES % (AUTO) 7 % (0-12); NEUTROPHILS # (AUTO) 4.7 10^3/uL (1.8-7.8); NEUTROPHILS % (AUTO) 75 % (42-75); PLATELET COUNT 124 10^3/uL (130-400); WHITE BLOOD COUNT 6.2 10^3/uL (4.3-11.0)
[2021-02-05 06:15] LABS: POTASSIUM 3.2 MMOL/L (3.6-5.0)
[2021-02-05 06:16] LABS: CALCIUM 8.1 MG/DL (8.5-10.1)
[2021-02-05 06:17] LABS: TOTAL PROTEIN 5.9 GM/DL (6.4-8.2)
[2021-02-05 06:19] LABS: BILIRUBIN,TOTAL 0.5 MG/DL (0.1-1.0)
[2021-02-05 06:21] LABS: CREATININE SERUM 1.33 MG/DL (0.60-1.30)
[2021-02-05] MEDS: FUROSEMIDE 40 MG/4 ML INJ (LASIX) IVP SCH ×2 (06:29→17:18)
[2021-02-05] MEDS: CEFEPIME INJECTION 1,000 MG in WATER (STERILE) FOR INJECTION 10 ML IV SCH ×3 (06:30→20:36)
[2021-02-05] MEDS: LEVOTHYROXINE 75 MCG (LEVOTHROID) TABLET PO SCH (06:30)
[2021-02-05] MEDS ORDERED: KCL 20 MEQ TAB (K-DUR) PO ONE (08:30)
[2021-02-05 08:37] VITALS: BP 125/78
[2021-02-05] MEDS: APIXABAN 5 MG (ELIQUIS) TABLET PO SCH ×2 (08:54→20:36)
[2021-02-05] MEDS: LACTOBACILLUS ACIDOPHILUS (PROBIOTIC) CAPSULE PO SCH (08:54)
[2021-02-05] MEDS: SENNA W/DOCUSATE (SENOKOT S) TABLET PO SCH ×2 (08:54→20:36)
[2021-02-05] MEDS: PANTOPRAZOLE 40 MG (PROTONIX) VIAL IV SCH (08:54)
--- NOTE | 2021-02-05 10:22 | Physical Therapy Daily Note ---
PT Daily Note-Current Subjective Patient agrees to PT. Mental Status Patient Orientation: Person, Time, Situation Attachments: Oxygen (1L O2 NC) Transfers SCALE: Activities may be completed with or without assistive devices. 0-Fthbpadbje-ciedzue completes the activity by him/herself with no assistance from a helper. 5-Set-up or Clean-up Assistance-helper sets up or cleans up; patient completes activity. [place] assists only prior to or following the activity. 4-Supervision or Touching Assistance-helper provides verbal cues and/or touching/steadying and/or contact guard assistance as patient completes activity. Assistance may be provided throughout the activity or intermittently. 3-Partial/Moderate Assistance-helper does LESS THAN HALF the effort. [place] lifts, holds or supports trunk or limbs, but provides less than half the effort. 2-Substantial/Maximal Assistance-helper does MORE THAN HALF the effort. [place] lifts or holds trunk or limbs and provides more than half the effort. 0-Mhaamduon-psrmll does ALL the effort. Patient does none of the effort to complete the activity. Or, the assistance of 2 or more helpers is required for the patient to complete the activity. If activity was not attempted, code reason: 7-Patient Refused. 9-Not Applicable-not attempted and the patient did not perform the activity before the current illness, exacerbation or injury. 10-Not Attempted due to Environmental Limitations-(lack of equipment, weather restraints, etc.). 88-Not Attempted due to Medical Conditions or Safety Concerns. Sit to Stand (QC): 6 Weight Bearing Right Lower Extremity: Right Full Weight Bearing Left Lower Extremity: Left Full Weight Bearing Gait Training Does the Patient Walk?: Yes Distance: 300' Walk 10 feet (QC): 5 Walk 50 ft with 2 Turns(QC): 5 Walk 150 ft (QC): 5 Gait Assistive Device: FWW very slow gait sequence with standing recovery periods due to fatigue Treatments Patient placed on RA to perform home O2 study. Patient SAO2 at rest on RA is 97%. Patient ambulated 100' with decrease to 87%, O2 2L NC placed on patient with recovery to 100%. Decreased O2 to 1L NC with SAO2 98%. RT made aware. Assessment Patient remains up in recliner with needs met. Patient reports fatigue/weakness. PT Senior Living Goals Supervising Editor News Reel Goals PT Supervising Editor News Reel Goals Time Frame: Feb 08, 2021 Roll Left & Right (QC): 6 Sit to Lying (QC): 6 Lying-Sitting on Side/Bed(QC): 6 Sit to Stand (QC): 6 Chair/Wnf-la-Jhfwe Xfer(QC): 6 Walk 10 feet (QC): 6 Walk 50ft with 2 Turns (QC): 6 PT Plan Treatment/Plan Treatment Plan: Continue Plan of Care Treatment Plan: Bed Mobility, Education, Functional Activity Danny, Functional Strength, Gait, Safety, Therapeutic Exercise, Transfers Treatment Duration: Feb 08, 2021 Frequency: 6 times per week Estimated Hrs Per Day: .25 hour per day Patient and/or Family Agrees t: Yes Time/GCodes Time In: 1000 Time Out: 1016 Total Billed Treatment Time: 16 Total Billed Treatment 1 visit FA 16 min JACKIE ROMERO PT Feb 05, 2021 10:22
[2021-02-05 11:27] VITALS: BP 121/62
[2021-02-05 16:00] VITALS: BP 134/74
[2021-02-05 20:00] VITALS: BP 142/61
[2021-02-06 00:12] VITALS: BP 130/67
[2021-02-06] MEDS: methylPREDNISolone 40 MG/ML (Solu-MEDROL) VIAL IV SCH ×2 (00:47→06:05)
[2021-02-06] MEDS: RT-ALBUTEROL/IPRATROPIUM 3 ML (DUONEB) VIAL INH SCH ×2 (01:26→06:43)
[2021-02-06 03:27] VITALS: BP 135/73
[2021-02-06] MEDS: CEFEPIME INJECTION 1,000 MG in WATER (STERILE) FOR INJECTION 10 ML IV SCH (06:05)
[2021-02-06] MEDS: LEVOTHYROXINE 75 MCG (LEVOTHROID) TABLET PO SCH (06:05)
[2021-02-06] MEDS: FUROSEMIDE 40 MG/4 ML INJ (LASIX) IVP SCH (06:05)
[2021-02-06 08:12] VITALS: BP 137/79
--- NOTE | 2021-02-06 08:35 | Discharge Summary ---
Diagnosis/Chief Complaint Date of Admission Jan 31, 2021 at 17:16 Date of Discharge Reason Hospital Visit PT IS AN 81 Y/O FEMALE WHO IS WELL KNOWN TO ME FROM CLINIC. SHE PRESENTED TO THE OFFICE TODAY AROUND NOON AND WAS COMPLETELY COGNITIVELY INTACT AND AFEBRILE. SHE HAD COMPLAINED OF HAVING TROUBLE URINATING, AND RECTAL PRESSURE. SHE WAS ABLE TO VOID A SMALL AMOUNT IN THE OFFICE, AND IT APPEARED THAT SHE MAY HAVE A UTI. LABS WERE DRAWN AND PT WAS SENT HOME TO WAIT ON THE RESULTS. SHE WAS CALLED AROUND 4PM WITH AN ELEVATED WBC REPORTED AT 20 BY THE OUTSIDE LAB. WE CALLED PT TO COME IN TO HAVE A ROCEPHIN SHOT AND WE WERE CALLING OUT ANTIBIOTICS FOR HER WELL. WHEN THE PT PRESENTED TO THE OFFICE AROUND 435PM, SHE WAS FEELING NAUSEATED, AND SHAKY, BY 450 SHE WAS MOANING AND STATING THAT SHE FELT WORSE AND I EVALUATED PT AND CALLED THE HOSPITAL FOR A DIRECT ADMISSION. ORDERS WERE FAXED FOR FLUIDS AND LABS AT 510PM. BY THE TIME I GOT TO THE FLOOR TO PUT IN MORE ORDERS, PT HAD AN IV BUT NO FLUIDS RUNNING AND PT WAS VOMITING AND HAD DECLINED SIGNIFICANTLY TO THE POINT THAT SHE WAS ALMOST OBTUNEDED. I HAD THE PT SHIPPED UP FROM THE MEDICAL FLOOR TO THE ICU, FLUIDS WERE STARTED TO RUN WIDE OPEN AND STAT LABS WERE DRAWN WITH COVID SWAB, FLU SWAB, URINE, CBC AND CMP ORDERED WELL. HER FAMILY WAS AT BEDSIDE AND REQUESTED A DNR/DNI STATUS ON THE PT. Discharge Summary Discharge Physical Examination Allergies: Coded Allergies: No Known Drug Allergies (Unverified , 12/22/12) Vitals & I&Os Vital Signs Date Time Temp Pulse Resp B/P (MAP) Pulse Ox O2 Delivery O2 Flow Rate FiO2 02/06/21 08:12 36.2 75 20 137/79 (98) 96 Nasal Cannula 2.00 Discharge Instructions to patient/family Please see electronic discharge instructions given to patient. Discharge Medications Reviewed and agree with Discharge Medication list on patient's Discharge Instruction sheet BALWINDER SAWYER MD Feb 06, 2021 08:34
[2021-02-06] MEDS ORDERED: AMOX-356 PO (08:37)
[2021-02-06] MEDS ORDERED: LACT1CAP64 PO (08:37)
--- NOTE | 2021-02-06 08:40 | D/C HH Face to Face Order ---
D/C Face to Face Orders Reconcile Patient Problems Problems Reviewed?: Yes Instructions for Patient Via [facility] FamilyApp, Patient Instructions/FollowUp: 1 W[address] [facility] Physician to follow Patient: DIGNA Discharge Diet for Home: Low Sodium Diet Patient Problems: HYPERTENSION EDEMA URINARY TRACT INFECTION SEPSIS HYPOTHYROID HX OF PULMONARY EMBOLISM, DVT Goals for Patient: IMPROVED STRENGTH Patient Data-Allergies,Ht & Wt Patient Allergies: Coded Allergies: No Known Drug Allergies (Unverified , 12/22/12) Height (Feet): 5 Height (Inches): 4.00 Weight (Pounds): 227 Weight (Ounces): 0.0 Home Health Need/Face to Face Date of Face to Face: Feb 06, 2021 Clinical Findings: Generalized weakness and fatigue, Muscle weakness, Shortness of breath I have seen Pt lgch-ml-mepe: Yes Discharged To: Home Diagnosis/Conditions: WEAKNESS HYPERTENSION EDEMA URINARY TRACT INFECTION SEPSIS HYPOTHYROID HX OF PULMONARY EMBOLISM, DVT Patient is Homebound due to: Lupe fall risk due to instabilty, Muscle weakness, Shortness of breath/distress Homebound Status Due to the above stated illness, injury or surgical procedure (medical condition or diagnosis) and associated clinical findings, the patient is homebound because of his/her inability to leave home except with aid of a beaulieu pportive device and/or person AND leaving the home requires a considerable and taxing effort or is medically contraindicated. Pt req the following assistanc: [facility] Nursing Orders Home Health Services Order: Nursing Services, Physical Therapy-Evaluate & Treat Home Health Infusion Therapy Line Start Date: Feb 04, 2021 Home Health Lab Orders Labs (specify type/freq): CBC, CMP ON 02/11/21 Therapy Orders Therapy Orders: Physical Therapy, PT to assess for OT Therapy Specific Orders: Eval assistive deivces, Teach enviro modifications/safety, Increase strength/endurance Certify Stmt I certify that this patient is under my care and that I, a nurse practitioner or a physician; a web assistant working with me, had a face to face encounter that - meets the physician face to face encounter requirements with this patient as dated. Medication List: Active Scripts Active Augmentin Xr 1,000-62.5 Tab (Amoxicillin/Potassium Clav) 1 Each Tab.er.12h 1 Each PO BID Probiotic (Lactobacillus Combo No.11) 1 Each Cap.sprink 1 Each PO TID Reported Vitamin B-12 (Cyanocobalamin (Vitamin B-12)) 1,000 Mcg/1 Ml Drops 1,000 Mcg PO DAILY Magnesium (Magnesium Oxide) 400 Mg Tablet 400 Mg PO 1200 Furosemide 20 Mg Tablet 20 Mg PO DAILY Eliquis (Apixaban) 5 Mg Tablet 5 Mg PO BID Cranberry (Cranberry Fruit) 450 Mg Tablet 450 Mg PO 1200 Vitamin D3 (Cholecalciferol (Vitamin D3)) 50 Mcg Capsule 50 Mcg PO 1200 Metoprolol Tartrate 25 Mg Tablet 25 Mg PO BID Acetaminophen 325 Mg Tablet 325 Mg PO BID Potassium Chloride 20 Meq Tablet.er 20 Meq PO TID Levothyroxine Sodium 75 Mcg Tablet 75 Mcg PO MO,TU,WE,JULIANO,FR,SAT Therems-M Tablet (Multivit,Calc,Mins/Iron/Folic) 1 Each Tablet 1 Ea PO 1200 Calcium Carbonate 600 Mg Tablet 600 Mg PO BID Cephalexin 500 Mg Tablet 500 Mg PO TID FILLED 01-31-2021 #21/ DAY SUPPLY Diclofenac Sodium 100 Gm Gel..gram. 2 Gm TD QID PRN Omeprazole 20 Mg Capsule.dr 20 Mg PO DAILY My orders: Orders - BALWINDER SAWYER MD Ambulate W/O 02-Home O2 Qual (02/05/21 11:27) Patient Visit (02/05/21 ) Functional Activities, Ea 15 (02/05/21 ) Attending Discharge Inpt/Inobs (02/06/21 08:35) [facility] [place] [facility] Dischage (02/06/21 08:35) BALWINDER SAWYER MD Feb 06, 2021 08:40
[2021-02-06] MEDS: PANTOPRAZOLE 40 MG (PROTONIX) VIAL IV SCH (09:04)
[2021-02-06] MEDS: SENNA W/DOCUSATE (SENOKOT S) TABLET PO SCH (09:04)
[2021-02-06] MEDS: LACTOBACILLUS ACIDOPHILUS (PROBIOTIC) CAPSULE PO SCH (09:04)
[2021-02-06] MEDS: APIXABAN 5 MG (ELIQUIS) TABLET PO SCH (09:04)
[2021-02-06 09:16] VITALS: BP 137/79
--- NOTE | 2021-02-11 12:04 | Physician Query Clarification ---
PQ-CHF Specificity Admission Date: Jan 31, 2021 at 17:16 Discharge Date: Feb 06, 2021 at 13:34 Dr. Spears, The medical record reflects the following clinical scenario: History/Risk Factors: emphysema, obesity, HTN, Clinical Findings: BNP 2377.1 Treatment: 40 mg IV Lasix Question: Can you further specify the acuity &/or type of CHF per the clinical indicators above? Please document a response in the Progress Notes or Discharge Summary. 1. Acuity: Acute, Chronic or Acute on Chronic 2. Type: Systolic, Diastolic or Systolic & Diastolic 3. Unspecified: CHF cannot be further specified regarding type or acuity 4. Other, with explanation of clinical findings 5. Clinically undetermined, no explanation for clinical findings Please remember a lack of response to the above will prompt a phone page by CDI/Coding staff. In responding to this query, please exercise your independent professional judgment. The purpose of this communication is to more accurately reflect the complexity of your patients condition. The fact that a question is asked does n ot imply that any particular answer is desired or expected. Thank you for your timely response to this clarification. Requestors name: Mani THIS PHYSICIAN QUERY FORM IS A PERMANENT PART OF THE MEDICAL RECORD MANI SIEGEL Feb 11, 2021 12:04
== END 2021-02-06 13:34 | disposition home health service (06) | DRG 872 ==
LOC: 4TH 17:16 → ICU 18:09 → 4TH 02-01 15:22
PROVIDERS: ADMIT Family Medicine; ATTEND Family Medicine
DX: A41.9 Sepsis, unspecified organism (principal); N39.0 Urinary tract infection, site not specified; E87.2 Acidosis; E87.1 Hypo-osmolality and hyponatremia; N17.9 Acute kidney failure, unspecified; G93.40 Encephalopathy, unspecified; R65.20 Severe sepsis without septic shock; J43.9 Emphysema, unspecified; Z66 Do not resuscitate; I11.0 Hypertensive heart disease with heart failure; I50.9 Heart failure, unspecified; E80.6 Other disorders of bilirubin metabolism; E66.9 Obesity, unspecified; Z68.36 Body mass index [BMI] 36.0-36.9, adult; E78.00 Pure hypercholesterolemia, unspecified; K21.9 Gastro-esophageal reflux disease without esophagitis; M19.91 Primary osteoarthritis, unspecified site; E03.9 Hypothyroidism, unspecified; H91.90 Unspecified hearing loss, unspecified ear; F32.9 Major depressive disorder, single episode, unspecified; Z86.16 Personal history of COVID-19; Z86.711 Personal history of pulmonary embolism; Z86.718 Personal history of other venous thrombosis and embolism; Z82.61 Family history of arthritis; Z82.49 Family history of ischemic heart disease and other diseases of the circulatory system
CPT/HCPCS: 36415; 70450; 71045; 71046; 80048; 80053; 80202; 81000; 82805; 82947; 83605; 83735; 83880; 84145; 85007; 85025; 85027; 87040; 87077; 87088; 87186; 87636; 94640; 94760; 94761

== ENCOUNTER → 2021-11-14 | Outpatient (CLI) | payer MEDICARE ==
[~2021-11-14] MED LIST changes: +ACET325T49 PO; +AMOX-356 PO; +APIX5TAB PO; +CEPH500T PO; +CHOL200074 PO; +CLC600T PO; +CRAN450T9 PO; +CYAN100081 PO; +FURO20TA4 PO; +LACT1CAP64 PO; +LEVO75TA6 PO; +MAGN400T39 PO; +METO-333 PO; +MULT-1166 PO; +POTA-51 PO
--- NOTE | 2021-11-14 12:42 | Diagnostic Imaging Report ---
INDICATION: Routine screening. COMPARISON: 11/12/2020 and 08/09/2019. TECHNIQUE: 2D and 3D bilateral screening mammography was performed with CAD. FINDINGS: Scattered fibroglandular densities are identified bilaterally. Benign parenchymal and vascular calcifications are noted bilaterally. A benign nodule in the outer left breast is stable. No spiculated mass or malignant-appearing microcalcifications are seen. The axillae are unremarkable. IMPRESSION: No mammographic features suspicious for malignancy are identified. ACR BI-RADS Category 2: Benign findings. Result letter will be mailed to the patient. Note: At least 10% of breast cancer is not imaged by mammography. Dictated by: Dictated on workstation # [id number]
== END ==
LOC: RAD 11:02
PROVIDERS: ATTEND Nurse Practitioner Family
DX: Z12.31 Encounter for screening mammogram for malignant neoplasm of breast (principal)
CPT/HCPCS: 77063; 77067

== ENCOUNTER → 2021-12-23 | Outpatient (CLI) | payer MEDICARE | LOC: CARD 13:17 | PROVIDERS: ATTEND Nurse Practitioner Family | DX: R06.09 Other forms of dyspnea (principal) | CPT/HCPCS: 93306 ==

== ENCOUNTER → 2021-12-31 | Outpatient (CLI) | payer MEDICARE ==
[~2021-12-31] MED LIST changes: +CATHETER FLUSH 10 ML SYR IVP PRN; +REGADENOSON 0.4 MG/5 ML SYR (LEXISCAN) IV ONE
[2021-12-31 09:56] VITALS: BP 153/82
--- NOTE | 2022-01-02 13:15 | STRESS TEST ---
DATE OF SERVICE: 12/31/2021 RESTING AND POST REGADENOSON TECHNETIUM-99M TETROFOSMIN SPECT CT IMAGING ORDERING PHYSICIAN: Sinai Ramos APRN PRIMARY PHYSICIAN: Dr. Spears. CLINICAL DIAGNOSES: Shortness of breath. Baseline images were carried out after injection of 9.99 mCi of technetium-99m Tetrofosmin. This was followed by 27.1 mCi of technetium-99M Tetrofosmin for stress imaging. The electrocardiogram showed sinus rhythm with right bundle branch block throughout the study. The electrocardiogram did not change significantly with the regadenoson infusion. She noted some nausea, which resolved in a few minutes after the regadenoson infusion. Review of images at rest and following stress indicates a small to moderate sized lateral perfusion defect, which is transient. Gated images show normal global left ventricular systolic function with normal regional wall motion. Left ventricular ejection fraction is calculated to be 54%. Left ventricular end diastolic volume is 60 mL. TID is 1.12. CONCLUSIONS: 1. This study is indicative of small to moderate amount of lateral ischemia (SDS 5). 2. Normal regional wall motion. 3. Normal global left ventricular systolic function with a calculated ejection fraction of 54%. Job ID: [id number] DocumentID: [id number] Dictated Date: 01/02/2022 09:43:37 Continuous Mining Operator Date: 01/02/2022 13:14:53 Dictated By: WON VILLASENOR MD, MA, FACP, FACC,
== END ==
LOC: CARD 07:45
PROVIDERS: ATTEND Nurse Practitioner Family
DX: R06.09 Other forms of dyspnea (principal)
CPT/HCPCS: 78452; 93017; A9502

== ENCOUNTER → 2022-11-17 | Outpatient (CLI) | payer MEDICARE ==
[~2022-11-17] MED LIST changes: -CATHETER FLUSH 10 ML SYR IVP PRN; -REGADENOSON 0.4 MG/5 ML SYR (LEXISCAN) IV ONE
--- NOTE | 2022-11-18 14:06 | Diagnostic Imaging Report ---
INDICATION: Routine screening. COMPARISON: 11/14/2021 and 11/12/2020. TECHNIQUE: 2D and 3D bilateral screening mammography was performed with CAD. FINDINGS: Scattered fibroglandular densities are identified bilaterally. There are benign-appearing parenchymal and vascular calcifications bilaterally. There are benign nodules bilaterally. No spiculated mass or malignant-appearing microcalcifications are identified. The axillae are unremarkable. IMPRESSION: No mammographic features suspicious for malignancy are identified. ACR BI-RADS Category 2: Benign findings. Result letter will be mailed to the patient. Note: At least 10% of breast cancer is not imaged by mammography. Dictated by: Dictated on workstation # [id number]
== END ==
LOC: RAD 15:30
PROVIDERS: ATTEND Nurse Practitioner Family
DX: Z12.31 Encounter for screening mammogram for malignant neoplasm of breast (principal)
CPT/HCPCS: 77063; 77067

== ENCOUNTER → 2023-01-05 | Outpatient (CLI) | payer MEDICARE ==
--- NOTE | 2023-01-05 16:10 | Diagnostic Imaging Report ---
Indication: Left shoulder pain. Time of Exam: 3:42 PM Three views of the left shoulder demonstrate normal glenohumeral and acromioclavicular alignment. Acromiohumeral space is normal. No fracture or dislocation is seen. There are some calcifications in the bicipital groove, perhaps calcifications within the biceps tendon. IMPRESSION: 1. No acute bony abnormality detected. 2. Questional calcifications in the biceps tendon, perhaps owing to calcific tendinitis. Dictated by: Dictated on workstation # [id number]
== END ==
LOC: RAD 15:27
PROVIDERS: ATTEND Physician Assistant
DX: M25.512 Pain in left shoulder (principal)
CPT/HCPCS: 73030

== ENCOUNTER → 2023-07-02 | Outpatient (RCR) | payer MEDICARE ==
[~2023-07-02] MED LIST changes: -DICL100G13 TD; +DICL100G60 TD; +POTA-330 PO; -POTA-51 PO
== END | disposition home or self-care (01) ==
PROVIDERS: ATTEND Family Medicine
DX: M62.81 Muscle weakness (generalized) (principal); R26.81 Unsteadiness on feet; E66.01 Morbid (severe) obesity due to excess calories; I35.0 Nonrheumatic aortic (valve) stenosis